=== PATIENT | male | born 1930 ===

== ENCOUNTER 2016-11-30 11:01 | Emergency (ER) | payer MEDICAID ==
[2016-11-30 11:02] VITALS: BMI 25.7
[2016-11-30] MEDS ORDERED: Sodium Chloride 0.9% 1,000 ML IV STA (11:38)
[2016-11-30] MEDS ORDERED: Iohexol 240 (50 ml) PO ONE (11:38)
--- NOTE | 2016-11-30 11:40 | ED PDOC ---
HPI: Abdomen Time Seen by Provider: 11/30/16 11:31 Chief Complaint (Nursing): Abdominal Pain History Per: Patient (Crampy lower abd pain assoc with diarrhea x 2 days. No fever or vomiting. No urinary sxs.) Onset/Duration Of Symptoms: Days (2) Current Symptoms Are (Timing): Still Present Severity: Mild Pain Scale Rating Of: 3 Location Of Pain/Discomfort: RLQ Quality Of Discomfort: Cramping Associated Symptoms: Diarrhea Exacerbating Factors: None Alleviating Factors: None Past Medical History Vital Signs: Last Vital Signs Temp 98.3 F 11/30/16 11:17 Pulse 62 11/30/16 11:17 Resp 17 11/30/16 11:17 BP 135/67 11/30/16 11:17 Pulse Ox 95 11/30/16 11:40 - Medical History PMH: Arthritis, Asthma, Benign Prostatic Hyperplasia, Depression, Diabetes, HTN , Hypercholesterolemia, Hyperlipidemia, Parkinson's Disease, Pneumonia Denies: Anemia, CHF, COPD, HIV, Hypothyroidism, Chronic Kidney Disease, Rheumatoid Arthritis - Surgical History Surgical History: Appendectomy, Cholecystectomy, Coronary Stent - Family History Family History: States: Unknown Family Hx - Home Medications Home Medications: Ambulatory Orders Medication Instructions Recorded Simvastatin 20 mg PO DAILY 10/06/15 Aspirin [Low Dose Aspirin EC] 81 mg PO DAILY 04/25/16 Famotidine [Pepcid] 20 mg PO DAILY 04/25/16 Venlafaxine HCl [Venlafaxine HCl 37.5 mg PO DAILY 04/25/16 ER] Gabapentin [Neurontin] 1 tab PO TID 08/01/16 Meloxicam [Mobic] 1 tab PO DAILY 08/01/16 Midodrine [Proamatine] 2.5 mg PO BID 08/01/16 Valsartan/Hydrochlorothiazide 1 tab PO DAILY 08/01/16 [Valsartan and Hydrochlorothiazide 12.5 mg-80 ] Albuterol 0.083% [Albuterol 3 ml IH Q4H PRN 11/30/16 Sulfate 3 Ml] Alendronate Sodium 70 mg PO QWK 11/30/16 Allopurinol [Zyloprim] 100 mg PO DAILY 11/30/16 Aspirin [Ecotrin] 81 mg PO DAILY 11/30/16 Ciprofloxacin HCl [Cipro] 500 mg PO BID #20 tab 11/30/16 Montelukast Sodium [Singulair] 10 mg PO HS 11/30/16 - Allergies Allergies/Adverse Reactions: Allergies Allergy/AdvReac Type Severity Reaction Status Date / Time No Known Allergies Allergy Verified 11/30/16 11:17 Review of Systems ROS Statement: Except As Marked, All Systems Reviewed And Found Negative Constitutional: Negative for: Fever Gastrointestinal: Positive for: Abdominal Pain, Diarrhea. Negative for: Vomiting Genitourinary Male: Negative for: Dysuria Physical Exam - Reviewed Nursing Documentation Reviewed: Yes Vital Signs Reviewed: Yes - Physical Exam Appears: Positive for: Non-toxic, No Acute Distress Head Exam: Positive for: ATRAUMATIC, NORMAL INSPECTION, NORMOCEPHALIC Skin: Positive for: Normal Color, Warm, DRY Eye Exam: Positive for: EOMI, Normal appearance, PERRL ENT: Positive for: Normal ENT Inspection Neck: Positive for: Normal, Painless ROM Cardiovascular/Chest: Positive for: Regular Rate, Rhythm Respiratory: Positive for: CNT, Normal Breath Sounds Gastrointestinal/Abdominal: Positive for: Bowel Sounds, Soft, Tenderness (RLQ) Back: Positive for: Normal Inspection Extremity: Positive for: Normal ROM Neurologic/Psych: Positive for: Alert, Oriented - Laboratory Results Result Diagrams: 11/30/16 12:25 11/30/16 12:25 - ECG O2 Sat by Pulse Oximetry: 95 Disposition - Clinical Impression Clinical Impression: UTI (lower urinary tract infection) - Patient ED Disposition Is Patient to be Admitted: No Counseled Patient/Family Regarding: Studies Performed, Diagnosis, Need For Followup, Rx Given - Disposition Referrals: [facility] [Outside] Disposition: Routine/Home Disposition Time: 16:40 Condition: FAIR Prescriptions: Ciprofloxacin HCl [Cipro] 500 mg PO BID #20 tab Instructions: Urinary Tract Infection in Men (ED) Print Language: RWANDAN
[2016-11-30] MEDS ORDERED: Iohexol 240 (50 ml) ONE (11:55)
[2016-11-30 12:33] LABS: BASO # 0.1 K/uL (0.0-0.2); BASO % 1.5 % (0.0-2.0); EOS # 0.1 K/uL (0.0-0.7); EOS % 1.9 % (0.0-4.0); LYMPH # 1.2 K/uL (1.0-4.3); LYMPH % 22.7 % (20.0-40.0); MEAN CELL VOLUME 83.5 fl (80.0-94.0); MEAN CORPUSCULAR HEMOGLOBIN 27.6 pg (27.0-31.0); MEAN CORPUSCULAR HGB CONC 33.1 g/dL (33.0-37.0); MONO # 0.6 K/uL (0.0-0.8); MONO % 10.9 % (0.0-10.0); NEUT # 3.3 K/uL (1.8-7.0); NRBC % 0.1 % (0.0-0.0); RED CELL DISTRIBUTION WIDTH 15.6 % (11.5-14.5); WHITE BLOOD COUNT 5.3 K/uL (4.8-10.8)
[2016-11-30 12:46] LABS: ALB/GLOB RATIO 1.3 (1.0-2.1); ALKALINE PHOSPHATASE 63 U/L (38-126); ALT/SGPT 32 U/L (21-72); AST/SGOT 40 U/L (17-59); BILIRUBIN,TOTAL 0.6 mg/dl (0.2-1.3); BLOOD UREA NITROGEN 22 mg/dl (9-20); CARBON DIOXIDE 26 mmol/L (22-30); CHLORIDE 107 mmol/L (98-107); GFR AFRICAN-AMERICAN > 60; GLUCOSE,RANDOM 98 mg/dL (75-110); POTASSIUM 4.2 MMOL/L (3.6-5.0); SODIUM 143 mmol/l (132-148)
[2016-11-30] MEDS ORDERED: Iohexol 300 100 ML IJ ONE (14:20)
[2016-11-30] MEDS ORDERED: Sodium Chloride 0.9% 50 ML IV ONE (14:21)
--- NOTE | 2016-11-30 16:31 | CT ---
PROCEDURE: CT Abdomen and Pelvis with contrast HISTORY: abd pain COMPARISON: 02/07/2016 TECHNIQUE: Contrast dose: 90 mL Radiation dose: Total exam DLP = 982.69 mGy-cm. This CT exam was performed using one or more of the following dose reduction techniques: Automated exposure control, adjustment of the mA and/or kV according to patient size, and/or use of iterative reconstruction technique. FINDINGS: LOWER THORAX: Patchy opacities in the lung bases likely atelectasis. Calcified granuloma in the right lung base. Mild enlargement of the heart. No significant pericardial effusion. LIVER: Unremarkable. No gross lesion or ductal dilatation. GALLBLADDER AND BILE DUCTS: Unremarkable. PANCREAS: Unremarkable. No gross lesion or ductal dilatation. SPLEEN: Unremarkable. ADRENALS: Unremarkable. No mass. KIDNEYS AND URETERS: Possible cysts in the right kidney. Again seen cortical areas of focal scarring in the right kidney. VASCULATURE: Tortuous abdominal aorta. Scattered atherosclerotic calcification involving the abdominal aorta and its main branches. BOWEL: Hiatal hernia. Collapsed stomach limiting evaluation. No bowel obstruction. Collapsed distal colon without oral contrast within it. This limits evaluation. APPENDIX: No CT evidence of acute appendicitis. PERITONEUM: No significant free fluid. No free air. LYMPH NODES: No bulky lymphadenopathy. BLADDER: Thickening of the wall of the urinary bladder which could represent underlying cystitis. REPRODUCTIVE: Unremarkable. BONES: Generalized osteopenia. OTHER FINDINGS: Fat containing umbilical hernia. IMPRESSION: No acute bowel pathology. Possible cysts in the right kidney. Other findings as above.
[2016-11-30 16:53] VITALS: BP 165/64; PULSE 51; RESP 16; TEMP 97.8; O2SAT 96
== END 2016-11-30 17:04 | disposition home or self-care (01) ==
LOC: H.ER 11:01
DX: N39.0 Urinary tract infection, site not specified (principal); E11.9 Type 2 diabetes mellitus without complications; E78.00 Pure hypercholesterolemia, unspecified; F32.9 Major depressive disorder, single episode, unspecified; G20 Parkinson's disease; I10 Essential (primary) hypertension; J45.909 Unspecified asthma, uncomplicated; N40.0 Benign prostatic hyperplasia without lower urinary tract symptoms; Z79.82 Long term (current) use of aspirin; Z95.5 Presence of coronary angioplasty implant and graft

== ENCOUNTER 2017-01-30 10:06 | Inpatient (IN) | payer MEDICAID ==
[2017-01-30 10:25] VITALS: BMI 32.9
[2017-01-30 10:54] LABS: BASO # 0.1 K/uL (0.0-0.2); BASO % 2.1 % (0.0-2.0); EOS # 0.1 K/uL (0.0-0.7); HEMOGLOBIN 12.4 g/dL (12.0-18.0); LYMPH # 1.2 K/uL (1.0-4.3); LYMPH % 30.1 % (20.0-40.0); MEAN CELL VOLUME 85.3 fl (80.0-94.0); MEAN CORPUSCULAR HEMOGLOBIN 27.9 pg (27.0-31.0); MEAN CORPUSCULAR HGB CONC 32.7 g/dL (33.0-37.0); MEAN PLATELET VOLUME 9.9 fl (7.2-11.7); MONO # 0.3 K/uL (0.0-0.8); MONO % 8.8 % (0.0-10.0); NEUT # 2.2 K/uL (1.8-7.0); NRBC % 0.1 % (0.0-0.0); RBC 4.46 Mil/uL (4.40-5.90); WHITE BLOOD COUNT 3.9 K/uL (4.8-10.8)
[2017-01-30 11:03] LABS: ALB/GLOB RATIO 1.4 (1.0-2.1); ALBUMIN 3.8 g/dL (3.5-5.0); ALT/SGPT 40 U/L (21-72); AST/SGOT 29 U/L (17-59); BLOOD UREA NITROGEN 24 mg/dl (9-20); GFR AFRICAN-AMERICAN > 60; GFR NON-AFRICAN AMERICAN > 60; LIPASE 68 U/L (23-300)
--- NOTE | 2017-01-30 11:08 | ED PDOC ---
HPI: Abdomen Time Seen by Provider: 01/30/17 10:22 Chief Complaint (Nursing): Abdominal Pain Chief Complaint (Provider): abdominal pain History Per: Patient History/Exam Limitations: no limitations Onset/Duration Of Symptoms: Days (x 1) Additional Complaint(s): Suman Keith is a 86 year old male, with a previous medical history of hypertension and diabetes, who presents to the ED with complaints of abdominal pain radiating to his chest ongoing for 1 day. He denies taking anything for pain and reports no nausea, vomiting, constipation, diarrhea, fever, chills or urinary symptoms. PMD: none provided Past Medical History Vital Signs: Last Vital Signs Temp 97.7 F 01/31/17 12:00 Pulse 51 L 01/31/17 12:00 Resp 18 01/31/17 12:00 BP 143/57 L 01/31/17 12:00 Pulse Ox 95 01/31/17 12:00 - Medical History PMH: Arthritis, Asthma, Benign Prostatic Hyperplasia, Depression, Diabetes, HTN , Hypercholesterolemia, Hyperlipidemia, Parkinson's Disease, Pneumonia Denies: Anemia, CHF, COPD, HIV, Hypothyroidism, Chronic Kidney Disease, Rheumatoid Arthritis - Surgical History Surgical History: Appendectomy, Cholecystectomy, Coronary Stent - Family History Family History: States: Unknown Family Hx - Home Medications Home Medications: Ambulatory Orders Medication Instructions Recorded Simvastatin 20 mg PO DAILY 10/06/15 Aspirin [Low Dose Aspirin EC] 81 mg PO DAILY 04/25/16 Famotidine [Pepcid] 20 mg PO DAILY 04/25/16 Valsartan/Hydrochlorothiazide 1 tab PO DAILY 08/01/16 [Valsartan and Hydrochlorothiazide 12.5 mg-80 ] Allopurinol [Zyloprim] 100 mg PO DAILY 11/30/16 Montelukast Sodium [Singulair] 10 mg PO HS 11/30/16 - Allergies Allergies/Adverse Reactions: Allergies Allergy/AdvReac Type Severity Reaction Status Date / Time No Known Allergies Allergy Verified 01/30/17 10:28 Review of Systems ROS Statement: Except As Marked, All Systems Reviewed And Found Negative Constitutional: Negative for: Fever, Chills Gastrointestinal: Positive for: Abdominal Pain. Negative for: Nausea, Vomiting , Diarrhea, Constipation Genitourinary Male: Negative for: Dysuria, Frequency, Incontinence, Hematuria Physical Exam - Reviewed Nursing Documentation Reviewed: Yes Vital Signs Reviewed: Yes - Physical Exam Appears: Positive for: Well, Non-toxic, In Acute Distress (painful) Head Exam: Positive for: ATRAUMATIC, NORMAL INSPECTION, NORMOCEPHALIC Skin: Positive for: Normal Color, Warm, DRY Eye Exam: Positive for: EOMI, Normal appearance, PERRL ENT: Positive for: Normal ENT Inspection Neck: Positive for: Normal, Painless ROM Cardiovascular/Chest: Positive for: Regular Rate, Rhythm Respiratory: Positive for: Crackles (left base ) Gastrointestinal/Abdominal: Positive for: Bowel Sounds, Soft, Tenderness (LUQ) Back: Positive for: Normal Inspection Extremity: Positive for: Normal ROM Neurologic/Psych: Positive for: Alert, Oriented - Laboratory Results Result Diagrams: 01/30/17 10:45 01/30/17 10:45 - ECG O2 Sat by Pulse Oximetry: 95 (RA) Pulse Ox Interpretation: Normal - Radiology X-Ray: Read By Radiologist X-Ray Interpretation: No Acute Disease - CT Scan/US CT head Other Rad Studies (CT/US): Radiology Report Reviewed (Normal CT of the head.) CT abd/pelvis Other Rad Studies (CT/US): Radiology Report Reviewed (No acute pathology.) Medical Decision Making Medical Decision Making: Initial Impression: abdominal pain with differentials including cholecystitis and diverticulitis Initial Plan: * labs * PROBNP * CT head w/o contrast * CT abd & pelvis w/ contrast * lipase * urine dipstick * urinalysis * PTT * PT * CXR * morphine 2 mg IV * EKG Scribe Attestation: Documented by Kalie Melgoza, acting as a scribe for Kalie Rose MD. Provider Scribe Attestation: All medical record entries made by the Scribe were at my direction and personally dictated by me. I have reviewed the chart and agree that the record accurately reflects my personal performance of the history, physical exam, medical decision making, and the department course for this patient. I have also personally directed, reviewed, and agree with the discharge instructions and disposition. Disposition - Clinical Impression Clinical Impression: Chest pain, Abdominal pain - Patient ED Disposition Is Patient to be Admitted: Yes - Disposition Disposition Time: 15:55 Condition: STABLE - Pt Status Changed To: Hospital Disposition Of: Observation - POA Present On Arrival: None
[2017-01-30 11:12] LABS: PARTIAL THROMBOPLASTIN TIME 31.7 Seconds (25.6-37.1); PROTHROMBIN TIME 11.2 Seconds (9.8-13.1)
[2017-01-30 11:14] LABS: B-TYPE NATRIURETIC PEPTIDE 265 pg/ml (0-900)
[2017-01-30] MEDS ORDERED: Iohexol 300 100 ML IJ ONE (11:22)
[2017-01-30] MEDS ORDERED: Sodium Chloride 0.9% 50 ML IV ONE (11:22)
--- NOTE | 2017-01-30 11:33 | CT ---
PROCEDURE: CT HEAD WITHOUT CONTRAST. HISTORY: VEGA COMPARISON: None available. TECHNIQUE: Axial computed tomography images were obtained through the head/brain without intravenous contrast. Radiation dose: Total exam DLP = 873 mGy-cm. This CT exam was performed using one or more of the following dose reduction techniques: Automated exposure control, adjustment of the mA and/or kV according to patient size, and/or use of iterative reconstruction technique. FINDINGS: HEMORRHAGE: No intracranial hemorrhage. BRAIN: No mass effect or edema. No atrophy or chronic microvascular ischemic changes. VENTRICLES: Unremarkable. No hydrocephalus. CALVARIUM: Unremarkable. PARANASAL SINUSES: Unremarkable as visualized. No significant inflammatory changes. MASTOID AIR CELLS: Unremarkable as visualized. No inflammatory changes. OTHER FINDINGS: None. IMPRESSION: Normal CT of the Head.
--- NOTE | 2017-01-30 14:34 | CT ---
PROCEDURE: CT Abdomen and Pelvis with contrast HISTORY: L sided abd pain COMPARISON: None. TECHNIQUE: Contrast dose: 100 cc of Omnipaque 300 Radiation dose: Total exam DLP = 1038 mGy-cm. This CT exam was performed using one or more of the following dose reduction techniques: Automated exposure control, adjustment of the mA and/or kV according to patient size, and/or use of iterative reconstruction technique. FINDINGS: LOWER THORAX: Unremarkable. LIVER: Unremarkable. No gross lesion or ductal dilatation. GALLBLADDER AND BILE DUCTS: Unremarkable. PANCREAS: Unremarkable. No gross lesion or ductal dilatation. SPLEEN: Unremarkable. ADRENALS: Unremarkable. No mass. KIDNEYS AND URETERS: Right lateral cortical defect. No hydronephrosis. No solid mass. VASCULATURE: Unremarkable. No aortic aneurysm. BOWEL: Unremarkable. No obstruction. No gross mural thickening. APPENDIX: Normal appendix. PERITONEUM: Unremarkable. No free fluid. No free air. LYMPH NODES: Unremarkable. No enlarged lymph nodes. BLADDER: Unremarkable. REPRODUCTIVE: Unremarkable. BONES: No acute fracture. OTHER FINDINGS: None. IMPRESSION: No acute pathology.
--- NOTE | 2017-01-30 15:05 | RAD ---
HISTORY: Chest pain COMPARISON: No prior. TECHNIQUE: Chest PA and lateral FINDINGS: LUNGS: No active pulmonary disease. PLEURA: No significant pleural effusion identified. No pneumothorax apparent. CARDIOVASCULAR: Normal. Atherosclerotic aorta OSSEOUS STRUCTURES: No significant abnormalities. VISUALIZED UPPER ABDOMEN: Normal. OTHER FINDINGS: None. IMPRESSION: No active disease.
[2017-01-30 16:32] LABS: SQUAMOUS EPITHIAL < 1 /hpf (0-5); URINE BILIRUBIN NEGATIVE (NEGATIVE); URINE BLOOD NEGATIVE (NEGATIVE); URINE CLARITY CLEAR (Clear); URINE COLOR YELLOW (YELLOW); URINE GLUCOSE (UA) NEG (Normal); URINE LEUKOCYTE ESTERASE NEG Leu/uL (Negative); URINE NITRATE NEGATIVE (NEGATIVE); URINE PROTEIN NEGATIVE (NEGATIVE); URINE UROBILINOGEN 0.2-1.0 mg/dL (0.2-1.0)
--- NOTE | 2017-01-30 23:42 | CP.PCM.HP ---
Past Patient History - Infectious Disease Hx of Infectious Diseases: None - Tetanus Immunizations Tetanus Immunization: Unknown - Past Medical History & Family History Past Medical History?: Yes - Past Social History Smoking Status: Former Smoker - CARDIAC Hx Cardiac Disorders: Yes - PULMONARY Hx Respiratory Disorders: Yes - NEUROLOGICAL Hx Neurological Disorder: Yes - HEENT Hx HEENT Problems: No - RENAL Hx Chronic Kidney Disease: No - ENDOCRINE/METABOLIC Hx Endocrine Disorders: Yes - HEMATOLOGICAL/ONCOLOGICAL Hx Blood Disorders: No - INTEGUMENTARY Hx Dermatological Problems: No - MUSCULOSKELETAL/RHEUMATOLOGICAL Hx Musculoskeletal Disorders: Yes - GASTROINTESTINAL Hx Gastrointestinal Disorders: No - GENITOURINARY/GYNECOLOGICAL Hx Genitourinary Disorders: Yes - PSYCHIATRIC Hx Psychophysiologic Disorder: Yes - SURGICAL HISTORY Hx Appendectomy: Yes Hx Cholecystectomy: Yes Hx Coronary Stent: Yes - ANESTHESIA Hx Anesthesia: Yes Hx Anesthesia Reactions: No Hx Malignant Hyperthermia: No Meds Allergies/Adverse Reactions: Allergies Allergy/AdvReac Type Severity Reaction Status Date / Time No Known Allergies Allergy Verified 01/30/17 10:28 Results - Vital Signs Recent Vital Signs: Last Vital Signs Temp 98 F 01/30/17 10:24 Pulse 56 L 01/30/17 19:27 Resp 20 01/30/17 19:27 BP 154/71 H 01/30/17 19:27 Pulse Ox 98 01/30/17 19:27 - Labs Result Diagrams: 01/30/17 10:45 01/30/17 10:45 Labs: Laboratory Results - last 24 hr 01/30/17 01/30/17 01/30/17 16:25 19:35 20:44 Troponin I 0.0160 TSH 3rd Generation 2.46 Urine Color Yellow Urine Clarity Clear Urine pH 7.0 Ur Specific [place] 1.050 H Urine Protein Negative Urine Glucose (UA) Neg Urine Ketones Negative Urine Blood Negative Urine Nitrate Negative Urine Bilirubin Negative Urine Urobilinogen 0.2-1.0 Ur Leukocyte Esterase Neg Urine RBC (Auto) 3 Urine Microscopic WBC 1 Ur Squamous Epith Cells < 1
[2017-01-31] MEDS: Insulin Lispro (humaLOG) 100 Units/ml Inj SC SCH ×4 (06:34→21:43)
[2017-01-31] MEDS: Enoxaparin 40 mg Syringe SC SCH (08:55)
[2017-01-31] MEDS: Pantoprazole 40 mg EC Tab PO SCH (08:57)
[2017-01-31] MEDS ORDERED: Patient's Own Med (Valsartan/Hydrochlorothiazide [Valsartan-Hctz 80-12.5 Mg Tab] 1 TAB) PO SCH (09:00)
[2017-01-31] MEDS: Sucralfate 1 gm/10 ml Oral Susp UD PO SCH ×5 (09:04→21:43)
--- NOTE | 2017-01-31 13:23 | CARD ---
APPROVED REPORT EKG Measurement Heart [id number] <Conclusion> Sinus bradycardia Left axis deviation Nonspecific ST and T wave abnormality Prolonged QT Abnormal ECG
--- NOTE | 2017-01-31 13:42 | CP.PCM.CON ---
History of Present Illness - History of Present Illness History of Present Illness: 86 Y/O MALE ADMITTED WITH ABD PAIN RADIATING TO CHEST. NO N/V/D/C. NO F/C. DENIES PALP LH DIZZINESS. MILD DYSPNEA, NO ORTHOPNEA. EKG REVEALS SINUS DERIC WITH LAD, NONSPEC ST T FLAT. TELE REVEALS SB AT 50-55. HE IS ALSO CO RIGHT INNER THIGH PAIN AND BACK PAIN. PT IS LAYING FLAT AND COMPLETING SENTENCES. HE DOES HAVE MULTIPLE MURMURS, MILD LE EDEMA AND IS A POOR HISTORIAN. PT DOES HAVE MULTIPLE RISK FACTORS FOR CAD. Review of Systems - Constitutional Constitutional: absent: As Per HPI, Anorexia, Chills, Daytime Sleepiness, Excessive Sweating, Fatigue, Fever, Frequent Falls, Headache, Increased Appetite , Lethargy, Malaise, Night Sweats, Snoring, Sleep Apnea, Weight Gain, Weight Loss, Weakness, Other - EENT Eyes: absent: As Per HPI, Blind Spots, Blurred Vision, Change in Vision, Decreased Night Vision, Diplopia, Discharge, Dry Eye, Exophthalmos, Floaters, Irritation, Itchy Eyes, Loss of Peripheral Vision, Pain, Photophobia, Requires Corrective Lenses, Sees Flashes, Spots in Vision, Tunnel Vision, Other Visual Disturbances, Loss of Vision, Other Ears: absent: As Per HPI, Decreased Hearing, Ear Discharge, Ear Pain, Tinnitus, Abnormal Hearing, Disequilibrium, Dizziness, Other Nose/Mouth/Throat: absent: As Per HPI, Epistaxis, Nasal Congestion, Nasal Discharge, Nasal Obstruction, Nasal Trauma, Nose Pain, Post Nasal Drip, Sinus Pain, Sinus Pressure, Bleeding Gums, Change in Voice, Dental Pain, Dry Mouth, Dysphagia, Halitosis, Hoarsness, Lip Swelling, Mouth Lesions, Mouth Pain, Odynophagia, Sore Throat, Throat Swelling, Tongue Swelling, Facial Pain, Neck Pain, Neck Mass, Other - Cardiovascular Cardiovascular: As Per HPI, Dyspnea. absent: Acrocyanosis, Chest Pain, Chest Pain at Rest, Chest Pain with Activity, Claudication, Diaphoresis, Dyspnea on Exertion, Edema, Irregular Heart Rhythm, Pain Radiating to Arm/Neck/Jaw, Leg Edema, Leg Ulcers, Lightheadedness, Orthopnea, Palpitations, Paroxysmal Nocturnal Dyspnea, Pedal Edema, Radiating Pain, Rapid Heart Rate, Slow Heart Rate, Syncope, Other - Respiratory Respiratory: Dyspnea. absent: As Per HPI, Cough, Hemoptysis, Dyspnea on Exertion, Wheezing, Snoring, Stridor, Pain on Inspiration, Chest Congestion, Excessive Mucous Production, Change in Mucous Color, Pain with Coughing, Other - Gastrointestinal Gastrointestinal: As Per HPI, Abdominal Pain. absent: Belching, Bloating, Change in Bowel Habits, Change in Stool Character, Coffee Ground Emesis, Constipation, Cramping, Diarrhea, Dyspepsia, Dysphagia, Early Satiety, Excessive Flatus, Fecal Incontinence, Heartburn, Hematemesis, Hematochezia, Loose Stools, Melena, Nausea, Odynophagia, Temesmus, Vomiting, Other - Genitourinary Genitourinary: absent: As Per HPI, Change in Urinary Stream, Difficulty Urinating, Dysuria, Flank Pain, Hematuria, Pyuria, Nocturia, Urinary Incontinence, Urinary Frequency, Urinary Hesitance, Urinary Urgency, Voiding Freq/Small Amts, Freq UTI, Hx Renal/Bladder Calculi, Hx /Renal Surgery, Bladder Distension, Other - Reproductive: Male Reproductive:Male: As Per HPI, Prepubesant, Dyspareunia, Genital Lesions, Genital Pruritis, Pelvic Pain, Sexual Dysfunction, Penile Discharge, Genital Odor, Impotence, On ED Medications, Penile Implant, Other - Musculoskeletal Musculoskeletal: As Per HPI, Back Pain. absent: Abnormal Gait, Arthralgias, Atrophy, Deformity, Joint Swelling, Limited Range of Motion, Loss of Height, Muscle Cramps, Muscle Weakness, Myalgias, Neck Pain, Numbness, Radiating Pain into Limb, Stiffness, Tingling, Other - Integumentary Integumentary: absent: As Per HPI, Acne, Alopecia, Bleeding Lesions, Change in Hair, Change in Nails, Change in Pigmentation, Changing Lesions, Dry Skin, Erythema, Furuncle, Hirsutism, Lesions, New Lesions, Non-Healing Lesions, Photosensitivity, Pruritus, Rash, Skin Pain, Skin Ulcer, Sores, Striae, Swelling , Unusual Bruising, Wounds, Jaundice, Other - Neurological Neurological: absent: As Per HPI, Abnormal Gait, Abnormal Hearing, Abnormal Movements, Abnormal Speech, Behavioral Changes, Burning Sensations, Confusion, Convulsions, Disequilibrium, Dizziness, Numbness, Focal Weakness, Frequent Falls , Headaches, Lack of Coordination, Loss of Vision, Memory Loss, Paresthesias, Radicular Pain, Restless Legs, Sensory Deficit, Syncope, Tingling, Tremor, Vertigo, Weakness, Other Visual Disturbances, Other - Psychiatric Psychiatric: absent: As Per HPI, Abnormal Sleep Pattern, Anhedonia, Anxiety, Auditory Hallucinations, Behavioral Changes, Change in Appetite, Change in Libido, Confusion, Depression, Difficulty Concentrating, Hallucinations, Homicidal Ideation, Hopelessness, Irritability, Memory Loss, Mood Swings, Panic Attacks, Paranoia, Suicidal Ideation, Visual Hallucinations, Tactile Hallucinations, Other - Endocrine Endocrine: absent: As Per HPI, Change in Body Appearance, Change in Libido, Cold Intolorance, Deepening of Voice, Excessive Sweating, Fatigue, Flushing, Heat Intolorance, Increase in Ring/Shoe/Hat Size, Palpitations, Polydipsia, Polyphagia, Polyuria, Other - Hematologic/Lymphatic Hematologic: absent: As Per HPI, Easy Bleeding, Easy Bruising, Lymphadenopathy, Other Past Patient History - Infectious Disease Hx of Infectious Diseases: None - Tetanus Immunizations Tetanus Immunization: Unknown - Past Medical History & Family History Past Medical History?: Yes - Past Social History Smoking Status: Former Smoker Chewing Tobacco Use: No Cigar Use: No Alcohol: None Drugs: Denies - CARDIAC Hx Cardiac Disorders: Yes Other/Comment: BRADYCARDIA - PULMONARY Hx Respiratory Disorders: Yes - NEUROLOGICAL Hx Neurological Disorder: Yes - HEENT Hx HEENT Problems: No - RENAL Hx Chronic Kidney Disease: No - ENDOCRINE/METABOLIC Hx Endocrine Disorders: Yes - HEMATOLOGICAL/ONCOLOGICAL Hx Blood Disorders: No - INTEGUMENTARY Hx Dermatological Problems: No - MUSCULOSKELETAL/RHEUMATOLOGICAL Hx Musculoskeletal Disorders: Yes Hx Back Pain: Yes - GASTROINTESTINAL Hx Gastrointestinal Disorders: No - GENITOURINARY/GYNECOLOGICAL Hx Genitourinary Disorders: Yes - PSYCHIATRIC Hx Psychophysiologic Disorder: No - SURGICAL HISTORY Hx Surgeries: Yes Hx Appendectomy: Yes Hx Cholecystectomy: Yes Hx Coronary Stent: Yes - ANESTHESIA Hx Anesthesia: Yes Hx Anesthesia Reactions: No Hx Malignant Hyperthermia: No Meds Home Medications: Home Medication List Medication Instructions Recorded Confirmed Type Pantoprazole [Protonix EC Tab] 40 mg PO DAILY #30 ect 02/01/17 Rx Sucralfate [Carafate Oral Susp] 1 gm PO ACHS #30 02/01/17 Rx Allergies/Adverse Reactions: Allergies Allergy/AdvReac Type Severity Reaction Status Date / Time No Known Allergies Allergy Verified 01/30/17 10:28 - Medications Medications: Current Medications Acetaminophen (Tylenol 325mg Tab) 650 mg PO Q6 PRN PRN Reason: Pain, Mild (1-3) Last Admin: 01/31/17 12:14 Dose: 650 mg Allopurinol (Zyloprim) 100 mg PO DAILY [facility] Last Admin: 01/31/17 08:57 Dose: 100 mg Aspirin (Ecotrin) 81 mg PO DAILY [facility] Last Admin: 01/31/17 08:54 Dose: 81 mg Atorvastatin Calcium (Lipitor) 10 mg PO DAILY [facility] Last Admin: 01/31/17 08:55 Dose: 10 mg Enoxaparin Sodium (Lovenox) 40 mg SC DAILY [facility] PRN Reason: Protocol Last Admin: 01/31/17 08:55 Dose: 40 mg Famotidine (Pepcid) 20 mg PO DAILY [facility] Last Admin: 01/31/17 08:56 Dose: 20 mg Hydrochlorothiazide (Microzide) 12.5 mg PO DAILY [facility] Last Admin: 01/31/17 08:56 Dose: 12.5 mg Insulin Human Lispro (Humalog) 0 units SC ACHS [facility] PRN Reason: Protocol Last Admin: 01/31/17 13:36 Dose: Not Given Montelukast Sodium (Singulair) 10 mg PO HS [facility] Last Admin: 01/31/17 03:02 Dose: 10 mg Morphine Sulfate (Morphine) 1 mg IVP Q4 PRN PRN Reason: Pain, moderate (4-7) Pantoprazole Sodium (Protonix Ec Tab) 40 mg PO DAILY [facility] Last Admin: 01/31/17 08:57 Dose: 40 mg Sucralfate (Carafate Oral Susp) 1 gm PO QID [facility] Last Admin: 01/31/17 13:35 Dose: 1 gm Valsartan (Diovan) 80 mg PO DAILY [facility] Last Admin: 01/31/17 13:35 Dose: 80 mg Physical Exam - Constitutional Appears: Non-toxic - Head Exam Head Exam: ATRAUMATIC, NORMAL INSPECTION, NORMOCEPHALIC - Eye Exam Eye Exam: EOMI, Normal appearance, PERRL. absent: Conjunctival injection, Nystagmus, Periorbital swelling, Periorbital tenderness, Scleral icterus Pupil Exam: NORMAL ACCOMODATION, PERRL. absent: Fixed, Irregular, Miosis, Mydriatic, Unequal - ENT Exam ENT Exam: Mucous Membranes Moist, Normal Exam. absent: Mucous Membranes Dry, Normal External Ear Exam, Normal Oropharynx, TM's Normal Bilaterally - Neck Exam Neck exam: Positive for: Normal Inspection. Negative for: Full Rom, Lymphadenopathy, Meningismus, Tenderness, Thyromegaly - Respiratory Exam Respiratory Exam: Clear to Auscultation Bilateral, NORMAL BREATHING PATTERN. absent: Accessory Muscle Use, Chest Wall Tenderness, Decreased Breath Sounds, Prolonged Expiratory Phase, Rales, Rhonchi, Wheezes, Respiratory Distress, Stridor - Cardiovascular Exam Cardiovascular Exam: Bradycardia, Diastolic murmur, REGULAR RHYTHM, +S1, +S2, Systolic Murmur. absent: Tachycardia, Clicks, Gallop, Irregular Rhythm, JVD, RRR, Rubs, +S4 Additional comments: 3/6 HOLOSYSTOLIC MURMUR LOUDEST AT BASE AND RADIATING TO APEX. 2/6 EARLY SYSTOLIC MURMUR HEARD AT APEX AND [facility]. NO RUBS OR GALLOPS. NO THRILLS OR HEAVES. - GI/Abdominal Exam GI & Abdominal Exam: Normal Bowel Sounds, Soft - Rectal Exam Rectal Exam: Deferred - Extremities Exam Extremities exam: Positive for: normal inspection. Negative for: calf tenderness, full ROM, joint swelling, normal capillary refill, pedal edema, tenderness, pedal pulses present - Back Exam Back exam: tenderness. absent: CVA tenderness (L), CVA tenderness (R), FULL ROM , muscle spasm, NORMAL INSPECTION, paraspinal tenderness, rash noted, vertebral tenderness - Neurological Exam Neurological exam: Alert, Oriented x3 - Psychiatric Exam Psychiatric exam: Normal Affect, Normal Mood - Skin Skin Exam: Dry, Intact, Normal Color, Warm Results - Vital Signs Recent Vital Signs: Last Vital Signs Temp 97.7 F 01/31/17 12:00 Pulse 51 L 01/31/17 12:00 Resp 18 01/31/17 12:00 BP 143/57 L 01/31/17 12:00 Pulse Ox 95 01/31/17 12:00 - Labs Result Diagrams: 02/01/17 05:40 02/01/17 05:40 Labs: Laboratory Results - last 24 hr 01/30/17 01/30/17 01/30/17 16:25 19:35 20:44 POC Glucose (mg/dL) Troponin I 0.0160 TSH 3rd Generation 2.46 Urine Color Yellow Urine Clarity Clear Urine pH 7.0 Ur Specific [place] 1.050 H Urine Protein Negative Urine Glucose (UA) Neg Urine Ketones Negative Urine Blood Negative Urine Nitrate Negative Urine Bilirubin Negative Urine Urobilinogen 0.2-1.0 Ur Leukocyte Esterase Neg Urine RBC (Auto) 3 Urine Microscopic WBC 1 Ur Squamous Epith Cells < 1 01/31/17 01/31/17 01/31/17 05:36 07:00 11:56 POC Glucose (mg/dL) 96 109 Troponin I < 0.0120 TSH 3rd Generation Urine Color Urine Clarity Urine pH Ur Specific [place] Urine Protein Urine Glucose (UA) Urine Ketones Urine Blood Urine Nitrate Urine Bilirubin Urine Urobilinogen Ur Leukocyte Esterase Urine RBC (Auto) Urine Microscopic WBC Ur Squamous Epith Cells - EKG Data EKG Interpreted by: Myself EKG shows normal: Sinus rhythm Rate: Bradycardia Assessment & Plan (1) Bradycardia Status: Acute (2) Murmur, diastolic Status: Acute (3) Heart murmur, systolic Status: Acute (4) Left axis deviation Status: Acute (5) Hx of coronary artery disease Status: Acute (6) Abdominal pain Status: Chronic Priority: Low (7) HTN (hypertension) Status: Chronic Priority: Medium (8) Back pain Status: Acute (9) Chest pain Status: Acute - Assessment and Plan (Free Text) Plan: PT NEEDS ECHO TO EVAL EF AND MURMURS TROP NEGATIVE CONT ASA MONITOR LYTES LE DUPLEX TO RO DVT LEXISCAN ST TO EVAL FOR ISCHEMIA GIVEN CP AND HX OF CAD CONT ARB TREATMENT WILL FOLLOW. 90 MIN TOTAL CARE TIME.
--- NOTE | 2017-01-31 23:41 | CP.PCM.PN ---
Subjective - Date & Time of Evaluation Date of Evaluation: 01/31/17 Time of Evaluation: 23:20 Objective - Vital Signs/Intake and Output Vital Signs (last 24 hours): Temp Pulse Resp BP Pulse Ox 97.8 F 56 L 18 126/56 L 95 01/31/17 20:05 01/31/17 20:05 01/31/17 20:05 01/31/17 20:05 01/31/17 20:05 Intake and Output: 01/31/17 02/01/17 18:59 06:59 Intake Total 1200 Output Total 1000 Balance 200 - Medications Medications: Current Medications Acetaminophen (Tylenol 325mg Tab) 650 mg PO Q6 PRN PRN Reason: Pain, Mild (1-3) Last Admin: 01/31/17 21:53 Dose: 650 mg Allopurinol (Zyloprim) 100 mg PO DAILY [facility] Last Admin: 01/31/17 08:57 Dose: 100 mg Aspirin (Ecotrin) 81 mg PO DAILY [facility] Last Admin: 01/31/17 08:54 Dose: 81 mg Atorvastatin Calcium (Lipitor) 10 mg PO DAILY [facility] Last Admin: 01/31/17 08:55 Dose: 10 mg Enoxaparin Sodium (Lovenox) 40 mg SC DAILY [facility] PRN Reason: Protocol Last Admin: 01/31/17 08:55 Dose: 40 mg Famotidine (Pepcid) 20 mg PO DAILY [facility] Last Admin: 01/31/17 08:56 Dose: 20 mg Insulin Human Lispro (Humalog) 0 units SC [facility] PRN Reason: Protocol Last Admin: 01/31/17 21:43 Dose: Not Given Montelukast Sodium (Singulair) 10 mg PO HS [facility] Last Admin: 01/31/17 21:43 Dose: 10 mg Morphine Sulfate (Morphine) 1 mg IVP Q4 PRN PRN Reason: Pain, moderate (4-7) Pantoprazole Sodium (Protonix Ec Tab) 40 mg PO DAILY [facility] Last Admin: 01/31/17 08:57 Dose: 40 mg Sucralfate (Carafate Oral Susp) 1 gm PO ACHS [facility] Last Admin: 01/31/17 21:43 Dose: 1 gm Valsartan (Diovan) 80 mg PO DAILY [facility] Last Admin: 01/31/17 13:35 Dose: 80 mg - Labs Labs: PT 11.2 Seconds (9.8-13.1) 01/30/17 10:45 INR 1.0 (0.9-1.2) 01/30/17 10:45 APTT 31.7 Seconds (25.6-37.1) 01/30/17 10:45
[2017-02-01 06:13] LABS: BASO # 0.1 K/uL (0.0-0.2); BASO % 1.1 % (0.0-2.0); EOS # 0.2 K/uL (0.0-0.7); EOS % 3.2 % (0.0-4.0); HEMOGLOBIN 12.7 g/dL (12.0-18.0); LYMPH # 1.6 K/uL (1.0-4.3); MEAN CELL VOLUME 84.8 fl (80.0-94.0); MEAN CORPUSCULAR HEMOGLOBIN 28.1 pg (27.0-31.0); MEAN CORPUSCULAR HGB CONC 33.1 g/dL (33.0-37.0); MEAN PLATELET VOLUME 10.1 fl (7.2-11.7); MONO # 0.4 K/uL (0.0-0.8); MONO % 8.4 % (0.0-10.0); NEUT # 2.8 K/uL (1.8-7.0); NEUT % 55.3 % (50.0-75.0); NRBC % 0.2 % (0.0-0.0); RBC 4.53 Mil/uL (4.40-5.90); RED CELL DISTRIBUTION WIDTH 15.5 % (11.5-14.5); WHITE BLOOD COUNT 5.1 K/uL (4.8-10.8)
[2017-02-01 06:27] LABS: ALB/GLOB RATIO 1.4 (1.0-2.1); ALBUMIN 3.8 g/dL (3.5-5.0); ALT/SGPT 26 U/L (21-72); AST/SGOT 30 U/L (17-59); BLOOD UREA NITROGEN 21 mg/dl (9-20); GFR AFRICAN-AMERICAN > 60; GFR NON-AFRICAN AMERICAN > 60; MAGNESIUM 2.1 MG/DL (1.6-2.3)
[2017-02-01] MEDS: Insulin Lispro (humaLOG) 100 Units/ml Inj SC SCH ×4 (06:58→21:25)
[2017-02-01] MEDS: Sucralfate 1 gm/10 ml Oral Susp UD PO SCH ×4 (10:00→21:06)
[2017-02-01] MEDS: Pantoprazole 40 mg EC Tab PO SCH ×2 (10:02→15:04)
--- NOTE | 2017-02-01 11:23 | US ---
PROCEDURE: Bilateral lower extremity venous duplex Doppler. HISTORY: Chest pain, abdominal pain, leg pain. No antecedent history of trauma. COMPARISON: None available. TECHNIQUE: Bilateral common femoral, superficial femoral, popliteal and posterior tibial veins were evaluated. Flow was assessed with color Doppler, compressibility, assessment of phasic flow and augmentation response. FINDINGS: COMMON FEMORAL VEIN: Right CFV: Unremarkable. Left CFV: Unremarkable. SUPERFICIAL FEMORAL VEIN: Right SFV: Unremarkable. Left SFV: Unremarkable. POPLITEAL VEIN: Right Popliteal: Unremarkable. Left Popliteal: Unremarkable. POSTERIOR TIBIAL VEIN: Right PTV: Unremarkable. Left PTV: Unremarkable. OTHER FINDINGS: None. IMPRESSION: No evidence of deep venous thrombosis.
[2017-02-01] MEDS: Enoxaparin 40 mg Syringe SC SCH (15:05)
--- NOTE | 2017-02-01 16:37 | CP.PCM.PN ---
Subjective - Date & Time of Evaluation Date of Evaluation: 02/01/17 Time of Evaluation: 16:35 Objective - Vital Signs/Intake and Output Vital Signs (last 24 hours): Temp Pulse Resp BP Pulse Ox 97.6 F 59 L 20 141/68 93 L 02/01/17 15:40 02/01/17 15:40 02/01/17 15:40 02/01/17 15:40 02/01/17 15:40 Intake and Output: 02/01/17 02/01/17 06:59 18:59 Intake Total 1520 Output Total 1700 Balance -180 - Medications Medications: Current Medications Acetaminophen (Tylenol 325mg Tab) 650 mg PO Q6 PRN PRN Reason: Pain, Mild (1-3) Last Admin: 01/31/17 21:53 Dose: 650 mg Allopurinol (Zyloprim) 100 mg PO DAILY [facility] Last Admin: 02/01/17 15:03 Dose: 100 mg Aspirin (Ecotrin) 81 mg PO DAILY [facility] Last Admin: 02/01/17 15:04 Dose: 81 mg Atorvastatin Calcium (Lipitor) 10 mg PO DAILY [facility] Last Admin: 02/01/17 15:04 Dose: 10 mg Enoxaparin Sodium (Lovenox) 40 mg SC DAILY [facility] PRN Reason: Protocol Last Admin: 02/01/17 15:05 Dose: 40 mg Famotidine (Pepcid) 20 mg PO DAILY [facility] Last Admin: 02/01/17 15:05 Dose: 20 mg Insulin Human Lispro (Humalog) 0 units SC [facility] PRN Reason: Protocol Last Admin: 02/01/17 11:30 Dose: Not Given Montelukast Sodium (Singulair) 10 mg PO [facility] Last Admin: 01/31/17 21:43 Dose: 10 mg Morphine Sulfate (Morphine) 1 mg IVP Q4 PRN PRN Reason: Pain, moderate (4-7) Last Admin: 02/01/17 12:50 Dose: 1 mg Pantoprazole Sodium (Protonix Ec Tab) 40 mg PO DAILY [facility] Last Admin: 02/01/17 15:04 Dose: 40 mg Sucralfate (Carafate Oral Susp) 1 gm PO [facility] Last Admin: 02/01/17 11:30 Dose: Not Given Valsartan (Diovan) 80 mg PO DAILY [facility] Last Admin: 02/01/17 15:04 Dose: 80 mg - Labs Labs: 02/01/17 05:40 02/01/17 05:40 PT 11.2 Seconds (9.8-13.1) 01/30/17 10:45 INR 1.0 (0.9-1.2) 01/30/17 10:45 APTT 31.7 Seconds (25.6-37.1) 01/30/17 10:45
--- NOTE | 2017-02-01 19:44 | CARD ---
APPROVED REPORT EXAM: Two-dimensional and M-mode echocardiogram with Doppler and color Doppler. Other Information Quality : AverageRhythm : NSR Technically limited study due to Limited Parasternal window INDICATION Chest Pain 2D DIMENSIONS IVSd1.49 (0.7-1.1cm)LVDd4.11 (3.9-5.9cm) LVOT Diameter2.45 (1.8-2.4cm)PWd1.32 (0.7-1.1cm) IVSs1.05 (0.8-1.2cm)LVDs3.00 (2.5-4.0cm) FS (%) 26.9 %PWs1.08 (0.8-1.2cm) Mitral Valve MV E Bugzpxju77.0cm/sMV DECEL [id number] A Vejhlede71.1cm/s MV [id number]/A ratio0.7MVA (PHT)2.15cm2 TDI E/Lateral E'0.0E/Medial E'0.0 LEFT VENTRICLE The left ventricle is normal size. There is normal left ventricular wall thickness. The left ventricular function is normal. The left ventricular ejection fraction is 60-65% There is normal LV segmental wall motion. Transmitral Doppler flow pattern is Grade I-abnormal relaxation pattern. No left ventricle thrombus noted on this study. There is no ventricular septal defect visualized. There is no left ventricular aneurysm. There is no mass noted in the left ventricle. RIGHT VENTRICLE The right ventricle is normal size. There is normal right ventricular wall thickness. The right ventricular systolic function is normal. ATRIA The left atrium size is normal. The right atrium size is normal. The interatrial septum is intact with no evidence for an atrial septal defect. AORTIC VALVE The aortic valve is normal in structure and function. There is moderate to severemoderate to severe aortic regurgitation. There is no aortic valvular stenosis. There is no aortic valvular vegetation. MITRAL VALVE The mitral valve is normal in structure and function. There is no evidence of mitral valve prolapse. There is no mitral valve stenosis. Mitral regurgitation is moderate. TRICUSPID VALVE The tricuspid valve is normal in structure and function. There is no tricuspid valve regurgitation noted. There is no tricuspid valve prolapse or vegetation. There is no tricuspid valve stenosis. PULMONIC VALVE The pulmonary valve is normal in structure and function. There is no pulmonic valvular regurgitation. There is no pulmonic valvular stenosis. GREAT VESSELS The aortic root is normal in size. The ascending aorta is normal in size. The IVC is normal in size and collapses >50% with inspiration. PERICARDIAL EFFUSION The pericardium appears normal. There is no pleural effusion. <Conclusion> Normal LV systolic function Moderate to Severe Aortic Insufficiency Moderate Mitral Regurgitation
--- NOTE | 2017-02-02 00:42 | CP.PCM.PN ---
Subjective - Date & Time of Evaluation Date of Evaluation: 02/01/17 Time of Evaluation: 17:00 - Subjective Subjective: PT REFUSED ST B/C HE WANTS HIS SON PRESENT Objective - Vital Signs/Intake and Output Vital Signs (last 24 hours): Temp Pulse Resp BP Pulse Ox 97.6 F 58 L 20 137/57 L 95 02/01/17 20:02 02/01/17 21:00 02/01/17 20:02 02/01/17 20:02 02/01/17 20:02 - Medications Medications: Current Medications Acetaminophen (Tylenol 325mg Tab) 650 mg PO Q6 PRN PRN Reason: Pain, Mild (1-3) Last Admin: 01/31/17 21:53 Dose: 650 mg Allopurinol (Zyloprim) 100 mg PO DAILY [facility] Last Admin: 02/01/17 15:03 Dose: 100 mg Aspirin (Ecotrin) 81 mg PO DAILY [facility] Last Admin: 02/01/17 15:04 Dose: 81 mg Atorvastatin Calcium (Lipitor) 10 mg PO DAILY [facility] Last Admin: 02/01/17 15:04 Dose: 10 mg Enoxaparin Sodium (Lovenox) 40 mg SC DAILY [facility] PRN Reason: Protocol Last Admin: 02/01/17 15:05 Dose: 40 mg Famotidine (Pepcid) 20 mg PO DAILY [facility] Last Admin: 02/01/17 15:05 Dose: 20 mg Insulin Human Lispro (Humalog) 0 units SC [facility] PRN Reason: Protocol Last Admin: 02/01/17 21:25 Dose: Not Given Montelukast Sodium (Singulair) 10 mg PO [facility] Last Admin: 02/01/17 21:06 Dose: 10 mg Morphine Sulfate (Morphine) 1 mg IVP Q4 PRN PRN Reason: Pain, moderate (4-7) Last Admin: 02/01/17 20:54 Dose: 1 mg Pantoprazole Sodium (Protonix Ec Tab) 40 mg PO DAILY [facility] Last Admin: 02/01/17 15:04 Dose: 40 mg Sucralfate (Carafate Oral Susp) 1 gm PO [facility] Last Admin: 02/01/17 21:06 Dose: 1 gm Valsartan (Diovan) 80 mg PO DAILY [facility] Last Admin: 02/01/17 15:04 Dose: 80 mg - Labs Labs: 02/01/17 05:40 02/01/17 05:40 PT 11.2 Seconds (9.8-13.1) 01/30/17 10:45 INR 1.0 (0.9-1.2) 01/30/17 10:45 APTT 31.7 Seconds (25.6-37.1) 01/30/17 10:45 Assessment and Plan (1) Bradycardia Status: Acute (2) Murmur, diastolic Status: Acute (3) Heart murmur, systolic Status: Acute (4) Left axis deviation Status: Acute (5) Hx of coronary artery disease Status: Acute (6) Abdominal pain Status: Chronic (7) HTN (hypertension) Status: Chronic (8) Back pain Status: Acute (9) Chest pain Status: Acute
[2017-02-02] MEDS ORDERED: Aminophylline 25 mg/ml Inj ONE (08:43)
[2017-02-02] MEDS: Sucralfate 1 gm/10 ml Oral Susp UD PO SCH ×4 (09:22→23:51)
[2017-02-02] MEDS: Insulin Lispro (humaLOG) 100 Units/ml Inj SC SCH ×4 (09:23→23:54)
[2017-02-02] MEDS: Enoxaparin 40 mg Syringe SC SCH (09:23)
[2017-02-02] MEDS: Pantoprazole 40 mg EC Tab PO SCH (09:24)
--- NOTE | 2017-02-02 19:37 | CP.PCM.PN ---
Subjective - Date & Time of Evaluation Date of Evaluation: 02/02/17 Time of Evaluation: 19:35 - Subjective Subjective: breathing improved no cp Objective - Vital Signs/Intake and Output Vital Signs (last 24 hours): Temp Pulse Resp BP Pulse Ox 98 F 58 L 20 118/47 L 91 L 02/02/17 19:34 02/02/17 19:34 02/02/17 19:34 02/02/17 19:34 02/02/17 19:34 - Medications Medications: Current Medications Acetaminophen (Tylenol 325mg Tab) 650 mg PO Q6 PRN PRN Reason: Pain, Mild (1-3) Last Admin: 01/31/17 21:53 Dose: 650 mg Allopurinol (Zyloprim) 100 mg PO DAILY [facility] Last Admin: 02/02/17 09:24 Dose: 100 mg Aspirin (Ecotrin) 81 mg PO DAILY [facility] Last Admin: 02/02/17 09:23 Dose: 81 mg Atorvastatin Calcium (Lipitor) 10 mg PO DAILY [facility] Last Admin: 02/02/17 09:23 Dose: 10 mg Enoxaparin Sodium (Lovenox) 40 mg SC DAILY [facility] PRN Reason: Protocol Last Admin: 02/02/17 09:23 Dose: 40 mg Famotidine (Pepcid) 20 mg PO DAILY [facility] Last Admin: 02/02/17 09:24 Dose: 20 mg Insulin Human Lispro (Humalog) 0 units SC [facility] PRN Reason: Protocol Last Admin: 02/02/17 16:45 Dose: Not Given Montelukast Sodium (Singulair) 10 mg PO [facility] Last Admin: 02/01/17 21:06 Dose: 10 mg Morphine Sulfate (Morphine) 1 mg IVP Q4 PRN PRN Reason: Pain, moderate (4-7) Last Admin: 02/01/17 20:54 Dose: 1 mg Pantoprazole Sodium (Protonix Ec Tab) 40 mg PO DAILY [facility] Last Admin: 02/02/17 09:24 Dose: 40 mg Sucralfate (Carafate Oral Susp) 1 gm PO [facility] Last Admin: 02/02/17 16:44 Dose: 1 gm Valsartan (Diovan) 80 mg PO DAILY [facility] Last Admin: 02/02/17 09:22 Dose: 80 mg - Labs Labs: 02/01/17 05:40 02/01/17 05:40 PT 11.2 Seconds (9.8-13.1) 01/30/17 10:45 INR 1.0 (0.9-1.2) 01/30/17 10:45 APTT 31.7 Seconds (25.6-37.1) 01/30/17 10:45 Assessment and Plan (1) Bradycardia Status: Acute (2) Murmur, diastolic Status: Acute (3) Heart murmur, systolic Status: Acute (4) Left axis deviation Status: Acute (5) Hx of coronary artery disease Status: Acute (6) Abdominal pain Status: Chronic (7) HTN (hypertension) Status: Chronic (8) Back pain Status: Acute (9) Chest pain Status: Acute - Assessment and Plan (Free Text) Plan: stress pending. Echo reveals multivavlular disease. need stress results prior to proceeding. for now cont current meds. bp and hr control monitor lytes statin and antiplts. 60 min total care time
--- NOTE | 2017-02-03 08:26 | CARD ---
APPROVED REPORT Protocol: LEXISCAN Test Type: Stress Nuclear Medications: TYLENOL 325MG 650MG, ALLOPURINOL 100MG, ASPIRIN 81MG, LIPITOR 10MG , LOVENOX 40MG, PEPCID 20MG, INSULIN HUMAN MONTELUKAST 10M, MORPHINE 1MG Medical History: [place], FORMER SMOKER, DIABETES, ARTHRITIS, CARDIAC CATH 3YRS AGO WITH STENT, VASCULAR SURGERY BILATERAL LOWER LEGS, APPENDECTOMY, CHOLECYSTECTOMY Target HR: 132 bpm Resting ECG: Bradycardia Resting Heart Rate: 52 bpm Resting Blood Pressure: 141/58mmHg submaximum (85%): 112 bpm TEST SUMMARY PREINJECTPRE-[id number]. [id number]. INJECTIONNS FLUSH00:[id number]. INJECTIONNUC MED00:[id number]. [id number]. PROCEDURE Pharmacologic stress testing was performed using 0.4mg per 5ml of regadenoson given intravenously over 7-10 seconds. POST EXERCISE Reason for Termination: Pharmacologic Stress Test Target HR: No Max HR: 54 bpm 47% of Maximum Predicted HR: 132 bpm Exercise duration: 01:00 min:sec, 0 Stage Exercise capacity: 1.0METs Max Blood Pressure: 149/68mmHg Blood Pressure response to exercise: normal resting BP - appropriate response Heart Rate response to exercise: appropriate Chest Pain: No, none Angina index: 0 Arrhythmia: No, none ST Change: No, none Deviation: 0 mm Clinical Indications Under Appropriate Use Criteria This 86-year-old man underwent this study to rule out evidence of coronary artery disease. He had a history of coronary artery disease and had complained of pain all over his body including his chest. This pain was persistent for number of days and had not resulted in any troponin elevation. His resting electrocardiogram showed sinus rhythm at [address]-T changes. There were no Q waves. His resting blood pressure was 141/58 mmHg and his cardiac auscultation was unremarkable. Stress EKG Interpretation The patient underwent a resting myocardial scan after 10 mCi of sestamibi was given intravenously followed 45 minutes later by myocardial scanning. The following day the patient underwent an intravenous infusion of 0.4 mg of Lexiscan over 10 seconds followed immediately by 30 mCi of sestamibi given intravenously. The patient tolerated Lexiscan infusion without any symptoms and there were no ischemic changes on the electrocardiogram. The patient left the stress lab symptom free and hemodynamically stable. EXAM: Myocardial Perfusion REST/STRESSMyocardial Perfusion REST/STRESS Image QualityGood Imaging Protocol The imaging protocol used to acquire images was Rest Tc-99m/stress Tc-99m 1 dayRest Tc-99m/stress Tc-99m 2 days Rest Spect myocardial perfusion imaging was performed in supine position 60 minutes following the injection of 10 mCi of Tc-99 Myoview. Time of rest injection: 9:30 Time of rest imagin:30 At peak stress, the patient was injected intravenously with 30mCi of Tc-99 tetrofosmin after an infusion time of minutes and seconds. Time of stress injection: 8:51 Time of stress imagin:01 Gated Stress Spect was performed 60 minutes after intravenous Tc-99 Myoview injection. The images were gated to evaluate regional wall motion and calculate ventricular ejection fraction. LV Perfusion The post Lexiscan images showed a moderately sestamibi deficient area in the septum which on resting scan showed improved sestamibi uptake. The remaining left ventricular wall segments demonstrated normal regional sestamibi uptake. Wall Motion Gated images showed a normal-sized left ventricle with normal regional wall motion and wall thickening. His resting left ventricular ejection fraction was 63%. CONCLUSION 1. The Lexiscan stress test was suggestive of potentially ischemic myocardium in the LAD territory. His resting left ventricular ejection fraction was 63%.
[2017-02-03] MEDS: Pantoprazole 40 mg EC Tab PO SCH (08:53)
[2017-02-03] MEDS: Insulin Lispro (humaLOG) 100 Units/ml Inj SC SCH ×4 (08:53→22:00)
[2017-02-03] MEDS: Enoxaparin 40 mg Syringe SC SCH (08:54)
[2017-02-03] MEDS: Sucralfate 1 gm/10 ml Oral Susp UD PO SCH ×4 (08:56→21:08)
[2017-02-03 14:03] LABS: MEAN CELL VOLUME 84.1 fl (80.0-94.0); MEAN CORPUSCULAR HGB CONC 33.3 g/dL (33.0-37.0); RBC 4.64 Mil/uL (4.40-5.90); RED CELL DISTRIBUTION WIDTH 15.4 % (11.5-14.5); WHITE BLOOD COUNT 4.3 K/uL (4.8-10.8)
[2017-02-03 14:17] LABS: BLOOD UREA NITROGEN 22 mg/dl (9-20); CALCIUM 8.7 mg/dL (8.4-10.2); GFR AFRICAN-AMERICAN > 60; GFR NON-AFRICAN AMERICAN > 60
[2017-02-03 14:25] LABS: INR 1.1 (0.9-1.2); PROTHROMBIN TIME 11.6 Seconds (9.8-13.1)
--- NOTE | 2017-02-03 16:51 | CP.PCM.PN ---
Subjective - Date & Time of Evaluation Date of Evaluation: 02/03/17 Time of Evaluation: 16:35 Objective - Vital Signs/Intake and Output Vital Signs (last 24 hours): Temp Pulse Resp BP Pulse Ox 97.7 F 61 20 143/58 L 96 02/03/17 16:05 02/03/17 16:05 02/03/17 16:05 02/03/17 16:05 02/03/17 16:05 - Medications Medications: Current Medications Acetaminophen (Tylenol 325mg Tab) 650 mg PO Q6 PRN PRN Reason: Pain, Mild (1-3) Last Admin: 01/31/17 21:53 Dose: 650 mg Allopurinol (Zyloprim) 100 mg PO DAILY [facility] Last Admin: 02/03/17 08:54 Dose: 100 mg Aspirin (Ecotrin) 81 mg PO DAILY [facility] Last Admin: 02/03/17 08:53 Dose: 81 mg Atorvastatin Calcium (Lipitor) 10 mg PO DAILY [facility] Last Admin: 02/03/17 08:53 Dose: 10 mg Enoxaparin Sodium (Lovenox) 40 mg SC DAILY [facility] PRN Reason: Protocol Last Admin: 02/03/17 08:54 Dose: 40 mg Famotidine (Pepcid) 20 mg PO DAILY [facility] Last Admin: 02/03/17 08:53 Dose: 20 mg Insulin Human Lispro (Humalog) 0 units SC [facility] PRN Reason: Protocol Last Admin: 02/03/17 16:02 Dose: Not Given Montelukast Sodium (Singulair) 10 mg PO HS [facility] Last Admin: 02/02/17 21:17 Dose: 10 mg Morphine Sulfate (Morphine) 1 mg IVP Q4 PRN PRN Reason: Pain, moderate (4-7) Last Admin: 02/02/17 21:16 Dose: 1 mg Pantoprazole Sodium (Protonix Ec Tab) 40 mg PO DAILY [facility] Last Admin: 02/03/17 08:53 Dose: 40 mg Sucralfate (Carafate Oral Susp) 1 gm PO ACHS [facility] Last Admin: 02/03/17 16:01 Dose: 1 gm Valsartan (Diovan) 80 mg PO DAILY [facility] Last Admin: 02/03/17 08:54 Dose: 80 mg - Labs Labs: 02/03/17 13:45 02/03/17 13:45 PT 11.6 Seconds (9.8-13.1) 02/03/17 13:45 INR 1.1 (0.9-1.2) 02/03/17 13:45 APTT 31.7 Seconds (25.6-37.1) 01/30/17 10:45 Assessment and Plan (1) Bradycardia Status: Acute (2) Murmur, diastolic Status: Acute (3) Heart murmur, systolic Status: Acute (4) Left axis deviation Status: Acute (5) Hx of coronary artery disease Status: Acute (6) Abdominal pain Status: Chronic (7) HTN (hypertension) Status: Chronic (8) Back pain Status: Acute (9) Chest pain Status: Acute
[2017-02-04] MEDS: Insulin Lispro (humaLOG) 100 Units/ml Inj SC SCH ×4 (06:42→22:16)
[2017-02-04] MEDS: Sucralfate 1 gm/10 ml Oral Susp UD PO SCH ×4 (08:16→21:52)
[2017-02-04] MEDS: Enoxaparin 40 mg Syringe SC SCH (08:18)
[2017-02-04] MEDS: Pantoprazole 40 mg EC Tab PO SCH (08:19)
--- NOTE | 2017-02-04 19:15 | CP.PCM.PN ---
Subjective - Date & Time of Evaluation Date of Evaluation: 02/02/17 Time of Evaluation: 23:00 Objective - Vital Signs/Intake and Output Vital Signs (last 24 hours): Temp Pulse Resp BP Pulse Ox 97.7 F 58 L 20 152/59 H 97 02/04/17 18:20 02/04/17 18:20 02/04/17 18:20 02/04/17 18:20 02/04/17 18:20 - Medications Medications: Current Medications Acetaminophen (Tylenol 325mg Tab) 650 mg PO Q6 PRN PRN Reason: Pain, Mild (1-3) Last Admin: 01/31/17 21:53 Dose: 650 mg Allopurinol (Zyloprim) 100 mg PO DAILY [facility] Last Admin: 02/04/17 08:20 Dose: Not Given Aspirin (Ecotrin) 81 mg PO DAILY [facility] Last Admin: 02/04/17 08:17 Dose: Not Given Atorvastatin Calcium (Lipitor) 10 mg PO DAILY [facility] Last Admin: 02/04/17 08:17 Dose: Not Given Enoxaparin Sodium (Lovenox) 40 mg SC DAILY [facility] PRN Reason: Protocol Last Admin: 02/04/17 08:18 Dose: Not Given Famotidine (Pepcid) 20 mg PO DAILY [facility] Last Admin: 02/04/17 08:19 Dose: Not Given Insulin Human Lispro (Humalog) 0 units SC [facility] PRN Reason: Protocol Last Admin: 02/04/17 16:30 Dose: Not Given Montelukast Sodium (Singulair) 10 mg PO HS [facility] Last Admin: 02/03/17 23:00 Dose: 10 mg Morphine Sulfate (Morphine) 1 mg IVP Q4 PRN PRN Reason: Pain, moderate (4-7) Last Admin: 02/02/17 21:16 Dose: 1 mg Pantoprazole Sodium (Protonix Ec Tab) 40 mg PO DAILY [facility] Last Admin: 02/04/17 08:19 Dose: Not Given Sucralfate (Carafate Oral Susp) 1 gm PO ACHS [facility] Last Admin: 02/04/17 16:30 Dose: Not Given Valsartan (Diovan) 80 mg PO DAILY [facility] Last Admin: 02/04/17 08:17 Dose: Not Given - Labs Labs: 02/03/17 13:45 02/03/17 13:45 PT 11.6 Seconds (9.8-13.1) 02/03/17 13:45 INR 1.1 (0.9-1.2) 02/03/17 13:45 APTT 31.7 Seconds (25.6-37.1) 01/30/17 10:45
--- NOTE | 2017-02-04 19:16 | CP.PCM.PN ---
Subjective - Date & Time of Evaluation Date of Evaluation: 02/03/17 Time of Evaluation: 17:00 Objective - Vital Signs/Intake and Output Vital Signs (last 24 hours): Temp Pulse Resp BP Pulse Ox 97.7 F 58 L 20 152/59 H 97 02/04/17 18:20 02/04/17 18:20 02/04/17 18:20 02/04/17 18:20 02/04/17 18:20 - Medications Medications: Current Medications Acetaminophen (Tylenol 325mg Tab) 650 mg PO Q6 PRN PRN Reason: Pain, Mild (1-3) Last Admin: 01/31/17 21:53 Dose: 650 mg Allopurinol (Zyloprim) 100 mg PO DAILY [facility] Last Admin: 02/04/17 08:20 Dose: Not Given Aspirin (Ecotrin) 81 mg PO DAILY [facility] Last Admin: 02/04/17 08:17 Dose: Not Given Atorvastatin Calcium (Lipitor) 10 mg PO DAILY [facility] Last Admin: 02/04/17 08:17 Dose: Not Given Enoxaparin Sodium (Lovenox) 40 mg SC DAILY [facility] PRN Reason: Protocol Last Admin: 02/04/17 08:18 Dose: Not Given Famotidine (Pepcid) 20 mg PO DAILY [facility] Last Admin: 02/04/17 08:19 Dose: Not Given Insulin Human Lispro (Humalog) 0 units SC [facility] PRN Reason: Protocol Last Admin: 02/04/17 16:30 Dose: Not Given Montelukast Sodium (Singulair) 10 mg PO HS [facility] Last Admin: 02/03/17 23:00 Dose: 10 mg Morphine Sulfate (Morphine) 1 mg IVP Q4 PRN PRN Reason: Pain, moderate (4-7) Last Admin: 02/02/17 21:16 Dose: 1 mg Pantoprazole Sodium (Protonix Ec Tab) 40 mg PO DAILY [facility] Last Admin: 02/04/17 08:19 Dose: Not Given Sucralfate (Carafate Oral Susp) 1 gm PO ACHS [facility] Last Admin: 02/04/17 16:30 Dose: Not Given Valsartan (Diovan) 80 mg PO DAILY [facility] Last Admin: 02/04/17 08:17 Dose: Not Given - Labs Labs: 02/03/17 13:45 02/03/17 13:45 PT 11.6 Seconds (9.8-13.1) 02/03/17 13:45 INR 1.1 (0.9-1.2) 02/03/17 13:45 APTT 31.7 Seconds (25.6-37.1) 01/30/17 10:45
--- NOTE | 2017-02-04 19:17 | CP.PCM.PN ---
Subjective - Date & Time of Evaluation Date of Evaluation: 02/04/17 Time of Evaluation: 19:15 Objective - Vital Signs/Intake and Output Vital Signs (last 24 hours): Temp Pulse Resp BP Pulse Ox 97.7 F 58 L 20 152/59 H 97 02/04/17 18:20 02/04/17 18:20 02/04/17 18:20 02/04/17 18:20 02/04/17 18:20 - Medications Medications: Current Medications Acetaminophen (Tylenol 325mg Tab) 650 mg PO Q6 PRN PRN Reason: Pain, Mild (1-3) Last Admin: 01/31/17 21:53 Dose: 650 mg Allopurinol (Zyloprim) 100 mg PO DAILY [facility] Last Admin: 02/04/17 08:20 Dose: Not Given Aspirin (Ecotrin) 81 mg PO DAILY [facility] Last Admin: 02/04/17 08:17 Dose: Not Given Atorvastatin Calcium (Lipitor) 10 mg PO DAILY [facility] Last Admin: 02/04/17 08:17 Dose: Not Given Enoxaparin Sodium (Lovenox) 40 mg SC DAILY [facility] PRN Reason: Protocol Last Admin: 02/04/17 08:18 Dose: Not Given Famotidine (Pepcid) 20 mg PO DAILY [facility] Last Admin: 02/04/17 08:19 Dose: Not Given Insulin Human Lispro (Humalog) 0 units SC [facility] PRN Reason: Protocol Last Admin: 02/04/17 16:30 Dose: Not Given Montelukast Sodium (Singulair) 10 mg PO HS [facility] Last Admin: 02/03/17 23:00 Dose: 10 mg Morphine Sulfate (Morphine) 1 mg IVP Q4 PRN PRN Reason: Pain, moderate (4-7) Last Admin: 02/02/17 21:16 Dose: 1 mg Pantoprazole Sodium (Protonix Ec Tab) 40 mg PO DAILY [facility] Last Admin: 02/04/17 08:19 Dose: Not Given Sucralfate (Carafate Oral Susp) 1 gm PO ACHS [facility] Last Admin: 02/04/17 16:30 Dose: Not Given Valsartan (Diovan) 80 mg PO DAILY [facility] Last Admin: 02/04/17 08:17 Dose: Not Given - Labs Labs: 02/03/17 13:45 02/03/17 13:45 PT 11.6 Seconds (9.8-13.1) 02/03/17 13:45 INR 1.1 (0.9-1.2) 02/03/17 13:45 APTT 31.7 Seconds (25.6-37.1) 01/30/17 10:45
[2017-02-05 06:06] LABS: BASO # 0.1 K/uL (0.0-0.2); EOS # 0.1 K/uL (0.0-0.7); EOS % 1.8 % (0.0-4.0); HEMOGLOBIN 13.3 g/dL (12.0-18.0); LYMPH # 1.5 K/uL (1.0-4.3); LYMPH % 24.3 % (20.0-40.0); MEAN CELL VOLUME 85.3 fl (80.0-94.0); MEAN CORPUSCULAR HEMOGLOBIN 27.5 pg (27.0-31.0); MEAN CORPUSCULAR HGB CONC 32.2 g/dL (33.0-37.0); MONO # 0.5 K/uL (0.0-0.8); MONO % 7.9 % (0.0-10.0); NEUT # 4.1 K/uL (1.8-7.0); RBC 4.85 Mil/uL (4.40-5.90); RED CELL DISTRIBUTION WIDTH 15.6 % (11.5-14.5); WHITE BLOOD COUNT 6.3 K/uL (4.8-10.8)
[2017-02-05 06:18] LABS: BLOOD UREA NITROGEN 17 mg/dl (9-20); CALCIUM 8.8 mg/dL (8.4-10.2); GFR AFRICAN-AMERICAN > 60; GFR NON-AFRICAN AMERICAN > 60
[2017-02-05] MEDS: Insulin Lispro (humaLOG) 100 Units/ml Inj SC SCH ×3 (06:37→16:35)
[2017-02-05] MEDS: Sucralfate 1 gm/10 ml Oral Susp UD PO SCH ×3 (08:12→16:34)
[2017-02-05] MEDS: Pantoprazole 40 mg EC Tab PO SCH (09:01)
[2017-02-05] MEDS: Enoxaparin 40 mg Syringe SC SCH (09:02)
[2017-02-05 15:32] VITALS: BP 149/73; PULSE 65; RESP 20; TEMP 98; O2SAT 98
--- NOTE | 2017-02-05 23:10 | CP.PCM.DIS ---
Provider - Provider Date of Admission: 01/31/17 14:41 Attending physician: Patti Moran MD Time Spent in preparation of Discharge (in minutes): 25 Hospital Course - Lab Results Lab Results: Most Recent Lab Values WBC 6.3 K/uL (4.8-10.8) 02/05/17 05:35 RBC 4.85 Mil/uL (4.40-5.90) 02/05/17 05:35 Hgb 13.3 g/dL (12.0-18.0) 02/05/17 05:35 Hct 41.4 % (35.0-51.0) 02/05/17 05:35 MCV 85.3 fl (80.0-94.0) 02/05/17 05:35 MCH 27.5 pg (27.0-31.0) 02/05/17 05:35 MCHC 32.2 g/dL (33.0-37.0) L 02/05/17 05:35 RDW 15.6 % (11.5-14.5) H 02/05/17 05:35 Plt Count 136 K/uL (130-400) 02/05/17 05:35 MPV 10.0 fl (7.2-11.7) 02/05/17 05:35 Neut % (Auto) 65.0 % (50.0-75.0) 02/05/17 05:35 Lymph % (Auto) 24.3 % (20.0-40.0) 02/05/17 05:35 Jasper % (Auto) 7.9 % (0.0-10.0) 02/05/17 05:35 Eos % (Auto) 1.8 % (0.0-4.0) 02/05/17 05:35 Baso % (Auto) 1.0 % (0.0-2.0) 02/05/17 05:35 Neut # 4.1 K/uL (1.8-7.0) 02/05/17 05:35 Lymph # 1.5 K/uL (1.0-4.3) 02/05/17 05:35 Jasper # 0.5 K/uL (0.0-0.8) 02/05/17 05:35 Eos # 0.1 K/uL (0.0-0.7) 02/05/17 05:35 Baso # 0.1 K/uL (0.0-0.2) 02/05/17 05:35 ESR 12 mm/hr (0-20) 02/01/17 05:40 PT 11.6 Seconds (9.8-13.1) 02/03/17 13:45 INR 1.1 (0.9-1.2) 02/03/17 13:45 APTT 31.7 Seconds (25.6-37.1) 01/30/17 10:45 D-Dimer, Quantitative 369 ng/mlDDU (0-230) H 02/01/17 05:40 Sodium 140 mmol/l (132-148) 02/05/17 05:35 Potassium 4.2 MMOL/L (3.6-5.0) 02/05/17 05:35 Chloride 110 mmol/L (98-107) H 02/05/17 05:35 Carbon Dioxide 20 mmol/L (22-30) L 02/05/17 05:35 Anion Gap 14 (10-20) 02/05/17 05:35 BUN 17 mg/dl (9-20) 02/05/17 05:35 Creatinine 0.7 mg/dL (0.8-1.5) L 02/05/17 05:35 Est GFR ( Amer) > 60 02/05/17 05:35 Est GFR (Non-Af Amer) > 60 02/05/17 05:35 POC Glucose (mg/dL) 105 mg/dL (65-110) 02/05/17 16:24 Random Glucose 103 mg/dL (75-110) 02/05/17 05:35 Calcium 8.8 mg/dL (8.4-10.2) 02/05/17 05:35 Magnesium 2.1 MG/DL (1.6-2.3) 02/01/17 05:40 Total Bilirubin 0.8 mg/dl (0.2-1.3) 02/01/17 05:40 AST 30 U/L (17-59) 02/01/17 05:40 ALT 26 U/L (21-72) 02/01/17 05:40 Alkaline Phosphatase 56 U/L (38-126) 02/01/17 05:40 Troponin I < 0.0120 ng/mL (0.00-0.120) 01/31/17 07:00 NT-Pro-B Natriuret Pep 265 pg/ml (0-900) 01/30/17 10:45 Total Protein 6.4 G/DL (6.3-8.2) 02/01/17 05:40 Albumin 3.8 g/dL (3.5-5.0) 02/01/17 05:40 Globulin 2.7 gm/dL (2.2-3.9) 02/01/17 05:40 Albumin/Globulin Ratio 1.4 (1.0-2.1) 02/01/17 05:40 Lipase 68 U/L (23-300) 01/30/17 10:45 TSH 3rd Generation 2.46 mIU/ML (0.46-4.68) 01/30/17 19:35 Urine Color Yellow (YELLOW) 01/30/17 16:25 Urine Clarity Clear (Clear) 01/30/17 16:25 Urine pH 7.0 (5.0-8.0) 01/30/17 16:25 Ur Specific Shirley 1.050 (1.003-1.030) H 01/30/17 16:25 Urine Protein Negative mg/dL (NEGATIVE) 01/30/17 16:25 Urine Glucose (UA) Neg mg/dL (Normal) 01/30/17 16:25 Urine Ketones Negative mg/dL (NEGATIVE) 01/30/17 16:25 Urine Blood Negative (NEGATIVE) 01/30/17 16:25 Urine Nitrate Negative (NEGATIVE) 01/30/17 16:25 Urine Bilirubin Negative (NEGATIVE) 01/30/17 16:25 Urine Urobilinogen 0.2-1.0 mg/dL (0.2-1.0) 01/30/17 16:25 Ur Leukocyte Esterase Neg Mendy/uL (Negative) 01/30/17 16:25 Urine RBC (Auto) 3 /hpf (0-3) 01/30/17 16:25 Urine Microscopic WBC 1 /hpf (0-5) 01/30/17 16:25 Ur Squamous Epith Cells < 1 /hpf (0-5) 01/30/17 16:25 Discharge Exam - Head Exam Head Exam: ATRAUMATIC, NORMAL INSPECTION, NORMOCEPHALIC Discharge Plan - Discharge Medications Prescriptions: Sucralfate [Carafate Oral Susp] 1 gm PO ACHS #30 Aspirin [Ecotrin] 81 mg PO DAILY #30 Pantoprazole [Protonix EC Tab] 40 mg PO DAILY #30 ect - Follow Up Plan Condition: STABLE Disposition: HOME/ ROUTINE Instructions: Chest Pain (DC), Acute Abdominal Pain (DC), Acute Abdominal Pain (GEN) Additional Instructions: patient cleared for discharge to home today by Dr.Seman Franny Rx for meds provided see reconciliation f/u with pmd outpatient Referrals: Navarro Pérez MD [Staff Provider] - Dulce Allen MD [Staff Provider] -
== END 2017-02-05 16:48 | disposition home or self-care (01) | DRG 139 ==
LOC: H.ER 10:06 → H.ERHOLD 14:41 → UNDOADMOB 16:08 → H.ERHOLD 16:08 → H.EROBSV 16:08 → H.TEL 20:56 → OBSVTOIN 01-31 14:41
PROVIDERS: ADMIT Internal Medicine; ATTEND Internal Medicine
DX: R00.1 Bradycardia, unspecified (principal); I38 Endocarditis, valve unspecified; G20 Parkinson's disease; E11.9 Type 2 diabetes mellitus without complications; I10 Essential (primary) hypertension; I25.10 Atherosclerotic heart disease of native coronary artery without angina pectoris; R07.9 Chest pain, unspecified; E78.5 Hyperlipidemia, unspecified; R01.1 Cardiac murmur, unspecified; E78.00 Pure hypercholesterolemia, unspecified; J45.909 Unspecified asthma, uncomplicated; N40.0 Benign prostatic hyperplasia without lower urinary tract symptoms; Z95.5 Presence of coronary angioplasty implant and graft; Z87.891 Personal history of nicotine dependence; Z79.82 Long term (current) use of aspirin; Z90.49 Acquired absence of other specified parts of digestive tract

== ENCOUNTER 2017-11-05 20:16 | Emergency (ER) | payer MEDICAID ==
[2017-11-05 20:16] VITALS: BMI 32.9
[2017-11-05 20:38] VITALS: RESP 18
[2017-11-05] MEDS ORDERED: Iohexol 240 (50 ml) PO ONE (21:46)
[2017-11-05] MEDS ORDERED: Sodium Chloride 0.9% 500 ML IV STA (21:47)
--- NOTE | 2017-11-05 22:05 | ED PDOC ---
HPI: Abdomen Chief Complaint (Provider): abdominal pain History Per: Patient, Family (son at bedside) History/Exam Limitations: no limitations Onset/Duration Of Symptoms: Days (1) Outside of [place] travel?: No Current Symptoms Are (Timing): Still Present (worsening) Severity: Severe Pain Scale Rating Of: 10 Location Of Pain/Discomfort: RUQ, RLQ Quality Of Discomfort: Sharp Associated Symptoms: Loss Of Appetite. denies: Fever, Chills, Nausea, Vomiting , Diarrhea, Constipation, Urinary Symptoms Exacerbating Factors: Movement, Walking Alleviating Factors: None Last Bowel Movement: Yesterday (soft, normal) <Shannon Paulson - Last Filed: 11/05/17 23:44> <Eli Linda - Last Filed: 11/06/17 00:01> Time Seen by Provider: 11/05/17 21:14 Chief Complaint (Nursing): Abdominal Pain Additional Complaint(s): 87 yr old M brought in by son with complaint of severe worsening RLQ abdominal pain which began yesterday. PMHx includes hypertension, dementia, gout, appendectomy. Pain is 10/10, exacerbated by movement and walking, not alleviated by anything. He took ibuprofen 40 min prior to arrival and this provided no relief. Associated symptoms are loss of appetite, overall malaise. Denies nausea, vomiting, fevers, chills, diarrhea or constipation. PMD: Kevin Carmichael SurgHx: appendectomy, abdominal hernia repair, internal hemorrhoidectomy Medications: Valsartan/HCTZ 160/12.5 mg PO QD, Sucralfate 1gm PO QD, Ibuprofen 600mg PO PRN pain, Omeprazole 40 mg PO QD, Simvastatin 20mg PO QHS, vit D 50, 000 unit tab Qweekly, Tramadol 50mg PO Q12, Memantine 5mg PO QD, Venlafaxine 150mg PO QD, Benzonotate 100mg PO Q12, Allopurinol 100mg PO QD, Aspirin 81mg PO QD Allergies: NKDA (Shannon Paulson) Supervising Attending Note <Shannon Paulson - Last Filed: 11/05/17 23:44> - Supervising Attending Note The Documented history was done by the: Physician Sheet Metal Foreman, Attending Physician The documented physical exam was done by the: Physician Sheet Metal Foreman, Attending Physician - Attestation: I have personally seen and examined this patient.: Yes I have fully participated in the care of the patient.: Yes I have reviewed all pertinent clinical information: Yes <Eli Linda - Last Filed: 11/06/17 00:01> - Notes: Notes:: Abdominal pain RUQ/RLQ (Eli Linda) Past Medical History - Medical History PMH: Arthritis, Asthma, Benign Prostatic Hyperplasia, Depression, Diabetes, HTN , Hypercholesterolemia, Hyperlipidemia, Parkinson's Disease, Pneumonia Denies: Anemia, CHF, COPD, HIV, Hypothyroidism, Chronic Kidney Disease, Rheumatoid Arthritis - Surgical History Surgical History: Appendectomy, Cholecystectomy, Coronary Stent - Family History Family History: States: Unknown Family Hx - Living Arrangements Living Arrangements: With Family - Social History Current smoker - smoking cessation education provided: No Ex-Smoker (has not smoked in the last 12 months): No Alcohol: None Drugs: Denies <Shannon Paulson - Last Filed: 11/05/17 23:44> <Eli Linda - Last Filed: 11/06/17 00:01> Vital Signs: Last Vital Signs Temp 98 F 11/05/17 23:31 Pulse 53 L 11/05/17 23:31 Resp 18 11/05/17 23:31 BP 153/60 H 11/05/17 23:31 Pulse Ox 95 11/05/17 23:44 - Home Medications Home Medications: Ambulatory Orders Medication Instructions Recorded Simvastatin 20 mg PO DAILY 10/06/15 Famotidine [Pepcid] 20 mg PO DAILY 04/25/16 Valsartan/Hydrochlorothiazide 1 tab PO DAILY 08/01/16 [Valsartan-Hctz 80-12.5 mg Tab] Allopurinol [Zyloprim] 100 mg PO DAILY 11/30/16 Montelukast Sodium [Singulair] 10 mg PO HS 11/30/16 Pantoprazole [Protonix EC Tab] 40 mg PO DAILY #30 ect 02/01/17 Sucralfate [Carafate Oral Susp] 1 gm PO ACHS #30 02/01/17 Aspirin [Ecotrin] 81 mg PO DAILY #30 02/05/17 - Allergies Allergies/Adverse Reactions: Allergies Allergy/AdvReac Type Severity Reaction Status Date / Time No Known Allergies Allergy Verified 11/05/17 20:34 Review of Systems Constitutional: Positive for: Malaise. Negative for: Fever, Chills, Sweats Eyes: Negative for: Redness ENT: Negative for: Nose Discharge, Throat Pain, Throat Swelling Cardiovascular: Negative for: Chest Pain, Palpitations, Edema, Light Headedness Respiratory: Negative for: Cough, Shortness of Breath, Hemoptysis Gastrointestinal: Positive for: Abdominal Pain, Other (loss of appetite). Negative for: Nausea, Vomiting, Diarrhea, Constipation Genitourinary Male: Negative for: Dysuria, Frequency Musculoskeletal: Negative for: Neck Pain, Shoulder Pain, Arm Pain Skin: Negative for: Rash, Lesions Neurological: Positive for: Other (difficulty ambulating due to RLQ pain) <Shannon Paulson - Last Filed: 11/05/17 23:44> Physical Exam - Physical Exam Appears: Positive for: Uncomfortable Head Exam: Positive for: ATRAUMATIC, NORMOCEPHALIC Skin: Positive for: Normal Color, Warm, Dry. Negative for: Jaundice Eye Exam: Positive for: EOMI, PERRL ENT: Positive for: TM Is/Are (normal bilaterally). Negative for: Pharyngeal Erythema, Tonsillar Exudate Neck: Positive for: Painless ROM, Supple Cardiovascular/Chest: Positive for: Regular Rate, Rhythm. Negative for: Gallop , Murmur Respiratory: Positive for: Normal Breath Sounds. Negative for: Rales, Rhonchi Pulses-Carotid (L): 2+ Pulses-Carotid (R): 2+ Pulses-Radial (L): 2+ Pulses-Radial (R): 2+ Gastrointestinal/Abdominal: Positive for: Bowel Sounds (present), Soft, Tenderness (significant tenderness to palpation in RUQ, RLQ ). Negative for: Distended, Guarding, Rebound Back: Positive for: R CVA Tenderness. Negative for: L CVA Tenderness Extremity: Positive for: Normal ROM. 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 <Shanonn Paulson - Last Filed: 11/05/17 23:44> - Laboratory Results Result Diagrams: 11/05/17 22:40 11/05/17 22:40 - ECG O2 Sat by Pulse Oximetry: 95 <Shannon Paulson - Last Filed: 11/05/17 23:44> - Laboratory Results Result Diagrams: 11/05/17 22:40 11/05/17 22:40 <Eli Linda - Last Filed: 11/06/17 00:01> - Progress ED Course And Treament: -CBC w/diff wnl, CMP wnl, lipase, lactic acid, PT/PTT wnl, Udip, blood culture, type and screen -Abd/Pelvis with PO and IV contrast pending -NS 500mls IV bolus -Morphine 2mg IV ordered -23:43: vital signs stable (Shannon Paulson) Disposition - Disposition Disposition Time: 23:42 <Shannon Paulson - Last Filed: 11/05/17 23:44> - Disposition Disposition: Transfer of Care Disposition Time: 00:00 Patient Signed Over To: Shaan Ya Handoff Comments: Pending CT, reasessment and final ER disposition <Eli Linda - Last Filed: 11/06/17 00:01> - Clinical Impression Clinical Impression: Abdominal pain - Disposition Condition: STABLE
[2017-11-05 22:52] LABS: BASO % 0.9 % (0.0-2.0); EOS # 0.1 K/uL (0.0-0.7); EOS % 2.5 % (0.0-4.0); HEMOGLOBIN 12.1 g/dL (12.0-18.0); LYMPH # 1.4 K/uL (1.0-4.3); MEAN CELL VOLUME 84.5 fl (80.0-94.0); MEAN CORPUSCULAR HEMOGLOBIN 27.4 pg (27.0-31.0); MEAN CORPUSCULAR HGB CONC 32.4 g/dL (33.0-37.0); MEAN PLATELET VOLUME 10.8 fl (7.2-11.7); MONO # 0.5 K/uL (0.0-0.8); MONO % 10.3 % (0.0-10.0); NEUT # 2.7 K/uL (1.8-7.0); NEUT % 56.3 % (50.0-75.0); RBC 4.41 Mil/uL (4.40-5.90); RED CELL DISTRIBUTION WIDTH 15.8 % (11.5-14.5); WHITE BLOOD COUNT 4.8 K/uL (4.8-10.8)
[2017-11-05 23:07] LABS: ALB/GLOB RATIO 1.1 (1.0-2.1); ALBUMIN 3.5 g/dL (3.5-5.0); ALT/SGPT 47 U/L (21-72); AST/SGOT 37 U/L (17-59); BLOOD UREA NITROGEN 27 mg/dl (9-20); CALCIUM 8.6 mg/dL (8.4-10.2); GFR AFRICAN-AMERICAN > 60; GFR NON-AFRICAN AMERICAN > 60; LIPASE 84 U/L (23-300)
[2017-11-05 23:19] LABS: PARTIAL THROMBOPLASTIN TIME 31.3 Seconds (25.6-37.1)
[2017-11-06] MEDS ORDERED: Iohexol 300 100 ML IJ ONE (00:17)
[2017-11-06] MEDS ORDERED: Sodium Chloride 0.9% 100 ML ONE (00:17)
--- NOTE | 2017-11-06 00:58 | ED PDOC ---
"- Laboratory Results Result Diagrams: 11/05/17 22:40 11/05/17 22:40 - ECG O2 Sat by Pulse Oximetry: 95 (RA) - Progress Re-evaluation Time: 03:22 Condition: Re-examined, Improved Medical Decision Making Medical Decision Making: Patient signed out to me by Dr. iLnda, pending CT Scan, re-assessment and final disposition. Time: 02:48 CT Abdomen and Pelvis With Intravenous Contrast FINDINGS: The liver is normal. The spleen is normal. The pancreas is normal. There is questionable slight irregularity of the gallbladder wall. Evaluation is limited by motion. No gallstones or pericholecystic stranding identified. Areas of cortical scarring in the right kidney. The right and transverse colon are distended with stool consistent with mild constipation. Appendectomy. EDWARDSISIDRO | Final Radiology Report CONFIDENTIALITY STATEMENT This report is intended only for use by the referring physician, and only in accordance with law. If you received this in error, call [phone]. Page 2 of 2 No aortic aneurysm or dissection. There are degenerative changes in the osseous structures. IMPRESSION: Right-sided constipation. Questionable irregularity of the gallbladder wall that could be further evaluated with ultrasound if indicated. Upon provider evaluation patient is medically stable, and requires no further treatment in the ED at this time. Patient will be discharged. Counseling was provided and all questions were answered regarding diagnosis and need for follow up with PCP in 2-3 days. There is agreement to discharge plan. Return if symptoms persist or worsen. Scribe Attestation: Documented by Krish Mosley, acting as a scribe for Shaan Ya MD. Provider Scribe Attestation: All medical record entries made by the Scribe were at my direction and personally dictated by me. I have reviewed the chart and agree that the record accurately reflects my personal performance of the history, physical exam, medical decision making, and the department course for this patient. I have also personally directed, reviewed, and agree with the discharge instructions and disposition. Disposition Counseled Patient/Family Regarding: Studies Performed, Diagnosis - Clinical Impression Clinical Impression: Abdominal pain - POA Present On Arrival: None - Disposition Referrals: [facility] [Outside] Disposition: Routine/Home Disposition Time: 03:22 Condition: GOOD Additional Instructions: Return for worsening. Follow up with your PCP in 2-3 days. Instructions: Acute Abdomen (Belly Pain), Adult (DC) Print Language: KHMER"
--- NOTE | 2017-11-06 02:48 | CT ---
EXAM: CT Abdomen and Pelvis With Intravenous Contrast EXAM DATE/TIME: 11/05/2017 9:46 PM CLINICAL HISTORY: 87 years old, male; Pain; Abdominal pain; Localized; Right lower quadrant (rlq); Prior surgery; Surgery date: 6+ months; Surgery type: Appendectomy, hernia repair, ; additional info: Rlq/ruq pain TECHNIQUE: Axial computed tomography images of the abdomen and pelvis with intravenous contrast. All CT scans at this facility use one or more dose reduction techniques, viz.: automated exposure control; ma/kV adjustment per patient size (including targeted exams where dose is matched to indication; i.e. head); or iterative reconstruction technique. Coronal and sagittal reformatted images were created and reviewed. CONTRAST: 90 mL of [id number] administered intravenously. COMPARISON: CT - ABD PELVIS IV CONTRAST ONLY 2017-01-30 11:33 FINDINGS: The liver is normal. The spleen is normal. The pancreas is normal. There is questionable slight irregularity of the gallbladder wall. Evaluation is limited by motion. No gallstones or pericholecystic stranding identified. Areas of cortical scarring in the right kidney. The right and transverse colon are distended with stool consistent with mild constipation. Appendectomy. No aortic aneurysm or dissection. There are degenerative changes in the osseous structures. IMPRESSION: Right-sided constipation. Questionable irregularity of the gallbladder wall that could be further evaluated with ultrasound if indicated.
[2017-11-06 04:11] VITALS: BP 154/70; PULSE 54; TEMP 98.8; O2SAT 97
== END 2017-11-06 04:05 | disposition home or self-care (01) ==
LOC: H.ER 20:16
DX: R10.31 Right lower quadrant pain (principal); K59.00 Constipation, unspecified; I10 Essential (primary) hypertension; G20 Parkinson's disease; F03.90 Unspecified dementia, unspecified severity, without behavioral disturbance, psychotic disturbance, mood disturbance, and anxiety; E11.9 Type 2 diabetes mellitus without complications; E78.00 Pure hypercholesterolemia, unspecified; F32.9 Major depressive disorder, single episode, unspecified; J45.909 Unspecified asthma, uncomplicated; N40.0 Benign prostatic hyperplasia without lower urinary tract symptoms; Z79.82 Long term (current) use of aspirin; Z87.891 Personal history of nicotine dependence; Z95.5 Presence of coronary angioplasty implant and graft
CPT/HCPCS: 74177; 80053; 83605; 83690; 85025; 85610; 85730; 86850; 86900; 87040; 96374; 99285; J2270; J7040; Q9966; Q9967

== ENCOUNTER 2018-01-13 20:13 | Inpatient (IN) | payer MEDICAID ==
[2018-01-13 20:13] VITALS: BMI 32.9
--- NOTE | 2018-01-13 20:50 | ED PDOC ---
HPI: Abdomen Time Seen by Provider: 01/13/18 20:25 Chief Complaint (Nursing): Abdominal Pain Chief Complaint (Provider): abdominal pain History Per: Patient, Family History/Exam Limitations: no limitations Onset/Duration Of Symptoms: Hrs (4) Current Symptoms Are (Timing): Still Present Location Of Pain/Discomfort: Diffuse Last Bowel Movement: Today Additional Complaint(s): 87 y/o male brought in by family for evaluation of acute onset abdominal pain x 4 hours. Patient states pain started in upper abdomen, has since spread all over. No improvement with Ranitidine taken at 18:00. Denies fever, chest pain, shortness of breath, palpitations, leg pain/swelling, urinary symptoms, changes in bowel movements. Past Medical History Reviewed: Historical Data, Nursing Documentation, Vital Signs Vital Signs: Last Vital Signs Temp 98.6 F 01/17/18 07:58 Pulse 81 01/17/18 09:32 Resp 20 01/17/18 07:58 BP 159/61 H 01/17/18 09:32 Pulse Ox 95 01/17/18 07:58 - Medical History PMH: Arthritis, Asthma, Benign Prostatic Hyperplasia, Depression, Diabetes, HTN , Hypercholesterolemia, Hyperlipidemia, Parkinson's Disease, Pneumonia Denies: Anemia, CHF, COPD, HIV, Hypothyroidism, Chronic Kidney Disease, Rheumatoid Arthritis - Surgical History Surgical History: Appendectomy, Coronary Stent - Family History Family History: States: Unknown Family Hx - Home Medications Home Medications: Ambulatory Orders Medication Instructions Recorded Simvastatin 20 mg PO DAILY 10/06/15 Valsartan/Hydrochlorothiazide 1 tab PO DAILY 08/01/16 [Valsartan-Hctz 80-12.5 mg Tab] Allopurinol [Zyloprim] 100 mg PO DAILY 11/30/16 Montelukast Sodium [Singulair] 10 mg PO HS 11/30/16 Pantoprazole [Protonix EC Tab] 40 mg PO DAILY #30 ect 02/01/17 Aspirin [Ecotrin] 81 mg PO DAILY #30 02/05/17 Alendronate Sodium [Binosto] 70 mg PO QWK 01/14/18 Docusate [Colace] 100 mg PO BID 01/14/18 Ergocalciferol [Drisdol 50,000 1 cap PO QWK 01/14/18 Intl Units Cap] Memantine [Namenda] 5 mg PO DAILY 01/14/18 Sucralfate [Carafate Tab] 1 gm PO Q6 PRN 01/14/18 Venlafaxine [Effexor XR] 1 tab PO DAILY 01/14/18 traMADol [Ultram] 1 tab Q12 PRN 01/14/18 Ciprofloxacin [Cipro] 500 mg PO Q12 #12 tab 01/17/18 Metronidazole [Flagyl] 500 mg PO TID #15 tablet 01/17/18 amLODIPine [Norvasc] 5 mg PO DAILY #30 tab 01/17/18 - Allergies Allergies/Adverse Reactions: Allergies Allergy/AdvReac Type Severity Reaction Status Date / Time No Known Allergies Allergy Verified 11/05/17 20:34 Review of Systems ROS Statement: Except As Marked, All Systems Reviewed And Found Negative Gastrointestinal: Positive for: Abdominal Pain Physical Exam - Reviewed Nursing Documentation Reviewed: Yes Vital Signs Reviewed: Yes - Physical Exam Appears: Positive for: Well, Non-toxic, Uncomfortable Head Exam: Positive for: ATRAUMATIC, NORMAL INSPECTION, NORMOCEPHALIC Skin: Positive for: Normal Color Eye Exam: Positive for: Normal appearance ENT: Positive for: Normal ENT Inspection Cardiovascular/Chest: Positive for: Regular Rate, Rhythm Respiratory: Positive for: Normal Breath Sounds Gastrointestinal/Abdominal: Positive for: Bowel Sounds, Soft, Tenderness ( diffuse tenderness; worse epigastric, RUQ) Back: Positive for: Normal Inspection Extremity: Positive for: Normal ROM Neurologic/Psych: Positive for: Alert, Oriented - Laboratory Results Result Diagrams: 01/15/18 05:30 01/16/18 08:30 - ECG ECG: Positive for: Viewed By Me (reviewed by ED attending) ECG Rhythm: Positive for: Sinus Bradycardia, Nonspecific Changes O2 Sat by Pulse Oximetry: 94 - Radiology X-Ray: Viewed By Me X-Ray Interpretation: No Acute Disease - Progress ED Course And Treament: labs, RUQ u/s, IV protonix, IV morphine EXAM: US Abdomen Limited, Right Upper Quadrant EXAM DATE/TIME: 01/13/2018 8:34 PM CLINICAL HISTORY: 87 years old, male; Pain; Abdominal pain; Epigastric; Additional info: Abd pain TECHNIQUE: Real-time ultrasound of the abdomen with image documentation. Examination is focused on the right upper quadrant. COMPARISON: No relevant prior studies available. FINDINGS: Liver: Normal echogenicity. No mass. No intrahepatic bile duct dilatation. Gallbladder: Gallstones. Up to 0.81 cm wall thickness. Trace pericholecystic fluid. No sonographic Van's sign. Common bile duct: No dilatation. No stones. Pancreas: Unremarkable as visualized. Right kidney: Normal echogenicity. No hydronephrosis. IMPRESSION: Findings concerning for acute cholecystitis. Clinical correlation is needed. IV fluids, IV zosyn ordered Case discussed with Dr. Reed, GI Fellow with Dr. Norman regarding consult Patient evaluated by Dr. Dee, residential assistant on-call for consult Case discussed with Dr. Smith, medical service on-call, for admission; recommends NPO Disposition - Clinical Impression Clinical Impression: Acute cholecystitis, Gallstone pancreatitis - Patient ED Disposition Is Patient to be Admitted: Yes - Disposition Disposition Time: 23:30 Condition: FAIR
[2018-01-13 21:59] LABS: BASO # 0.1 K/uL (0.0-0.2); BASO % 0.6 % (0.0-2.0); EOS # 0.1 K/uL (0.0-0.7); EOS % 0.7 % (0.0-4.0); HEMOGLOBIN 12.8 g/dL (12.0-18.0); LYMPH # 0.8 K/uL (1.0-4.3); LYMPH % 7.5 % (20.0-40.0); MEAN CELL VOLUME 84.7 fl (80.0-94.0); MEAN CORPUSCULAR HEMOGLOBIN 28.2 pg (27.0-31.0); MEAN CORPUSCULAR HGB CONC 33.3 g/dL (33.0-37.0); MEAN PLATELET VOLUME 10.2 fl (7.2-11.7); MONO # 0.7 K/uL (0.0-0.8); MONO % 6.2 % (0.0-10.0); NEUT # 9.1 K/uL (1.8-7.0); NRBC % 0.1 % (0.0-0.0); PLATELET COUNT 157 K/uL (130-400); RBC 4.52 Mil/uL (4.40-5.90); RED CELL DISTRIBUTION WIDTH 15.7 % (11.5-14.5); WHITE BLOOD COUNT 10.7 K/uL (4.8-10.8)
[2018-01-13 22:06] LABS: SQUAMOUS EPITHIAL < 1 /hpf (0-5); URINE BACTERIA RARE (<OCC); URINE BILIRUBIN NEGATIVE (NEGATIVE); URINE BLOOD SMALL (NEGATIVE); URINE CLARITY CLEAR (Clear); URINE COLOR YELLOW (YELLOW); URINE GLUCOSE (UA) NEG (Normal); URINE LEUKOCYTE ESTERASE NEG Leu/uL (Negative); URINE PROTEIN NEGATIVE (NEGATIVE)
[2018-01-13 22:24] LABS: ALB/GLOB RATIO 1.2 (1.0-2.1); ALBUMIN 3.7 g/dL (3.5-5.0); ALT/SGPT 62 U/L (21-72); AST/SGOT 119 U/L (17-59); BLOOD UREA NITROGEN 25 mg/dl (9-20); CALCIUM 8.9 mg/dL (8.4-10.2); GFR AFRICAN-AMERICAN > 60; GFR NON-AFRICAN AMERICAN > 60
[2018-01-13 22:41] LABS: LIPASE 5581 U/L (23-300)
[2018-01-13] MEDS ORDERED: Sodium Chloride 0.9% 500 ML IV STA (22:47)
[2018-01-13] MEDS ORDERED: Piperacillin/Tazobact 3.375 GM in Sodium Chloride 0.9% 100 ML IV ONE (22:47)
[2018-01-13] MEDS ORDERED: Piperacillin/Tazobact 3.375 gm Inj IVPB ONE (22:50)
[2018-01-13 23:18] LABS: VENOUS BLOOD GAS BASE EXCESS 1.9 mmol/L (0.0-2.0); VENOUS BLOOD GAS PCO2 41 mmHg (40-60); VENOUS BLOOD GAS PO2 53 mm/Hg (30-55); VENOUS BLOOD PH 7.42 (7.32-7.43)
[2018-01-13 23:20] LABS: PARTIAL THROMBOPLASTIN TIME 31.2 Seconds (25.6-37.1); PROTHROMBIN TIME 11.5 Seconds (9.8-13.1)
[2018-01-13 23:45] LABS: ACANTHOCYTES SLIGHT; ANISOCYTOSIS SLIGHT; BANDS 1 % (0-2); HYPOCHROMIC SLIGHT; LYMPHOCYTE 9 % (20-50); MONOCYTE 3 % (0-10); NEUTROPHIL 87 % (42-75); PLATELET ESTIMATE NORMAL (NORMAL); TOTAL CELLS COUNTED 100
--- NOTE | 2018-01-14 00:19 | CP.PCM.CON ---
History of Present Illness - History of Present Illness History of Present Illness: General surgery consult note for Dr. Rikki Dee, PGY-2 Pt S & E at bedside at 2305. History as per pt, pt's son at bedside & EMR. 87M w/multiple medical co-morbidities (see below) consulted for epigastric pain x 4 hours. Pt reports sudden onset of severe/worsening epigastric pain that radiates to suprapubic area, constant since onset. Pt reports taking Ranitidine without alleviation. No inciting, alleviating or aggravating factors identified. Admits to headache, lower extremity pain (chronic). Denies N & V, F & C, constipation, diarrhea, anorexia, changes in urinary habits, other complaints. In ED - Ab U/S w/gallstones, trace pericholecystic fluid, GB wall thickened. Afebrile, no leukocytosis. Lipase 5581. T bili 1.0, AST 119, ALT 62 PMH: DM, HTN, HLD, gout, PVD, bradycardia, BPH, Parkinson's dementia, depression , chronic low back pain, gastritis, tricuspid aortic valve PSH: Hemorrhoidectomy, appendectomy, ventral hernia repair, angioplasty of lower extremities, PCI w/stents All: NKDA SH: Denies ETOH use, hx of tobacco use, denies illicit drug use PMD: Does not know name Review of Systems - Review of Systems Systems not reviewed;Unavailable: Dementia All systems: reviewed and no additional remarkable complaints except - Constitutional Constitutional: Headache - EENT Ears: absent: Dizziness Nose/Mouth/Throat: absent: Sore Throat - Cardiovascular Cardiovascular: Chest Pain (occasional) - Gastrointestinal Gastrointestinal: Abdominal Pain. absent: Change in Bowel Habits, Constipation , Diarrhea, Nausea, Vomiting - Genitourinary Genitourinary: absent: Change in Urinary Stream - Musculoskeletal Musculoskeletal: Back Pain (chronic) - Integumentary Integumentary: absent: New Lesions, Rash - Psychiatric Psychiatric: absent: Change in Appetite Past Patient History - Infectious Disease Hx of Infectious Diseases: None - Tetanus Immunizations Tetanus Immunization: Unknown - Past Medical History & Family History Past Medical History?: Yes - Past Social History Smoking Status: Former Smoker - CARDIAC Hx Congestive Heart Failure: No Hx Hypercholesterolemia: Yes Hx Hypertension: Yes - PULMONARY Hx Asthma: Yes Hx Chronic Obstructive Pulmonary Disease (COPD): No Hx Pneumonia: Yes - NEUROLOGICAL Hx Parkinson's Disease: Yes - HEENT Hx HEENT Problems: No - RENAL Hx Chronic Kidney Disease: No - ENDOCRINE/METABOLIC Hx Hypothyroidism: No - HEMATOLOGICAL/ONCOLOGICAL Hx Anemia: No Hx Human Immunodeficiency Virus (HIV): No - INTEGUMENTARY Hx Dermatological Problems: No - MUSCULOSKELETAL/RHEUMATOLOGICAL Hx Arthritis: Yes Hx Rheumatoid Arthritis: No - GASTROINTESTINAL Hx Gastrointestinal Disorders: No - GENITOURINARY/GYNECOLOGICAL Hx Genitourinary Disorders: Yes - PSYCHIATRIC Hx Depression: Yes - SURGICAL HISTORY Hx Appendectomy: Yes Hx Coronary Stent: Yes - ANESTHESIA Hx Anesthesia: Yes Hx Anesthesia Reactions: No Hx Malignant Hyperthermia: No Meds Allergies/Adverse Reactions: Allergies Allergy/AdvReac Type Severity Reaction Status Date / Time No Known Allergies Allergy Verified 11/05/17 20:34 - Medications Medications: Current Medications Lactated Ringer's (Lactated Ringer's) 1,000 mls @ 150 mls/hr IV .Q6H40M LUCIO Piperacillin Sod/Tazobactam (Sod 3.375 gm/ Sodium Chloride) 100 mls @ 100 mls/ hr IVPB Q6 LUCIO PRN Reason: Protocol Morphine Sulfate (Morphine) 2 mg IVP Q4 PRN PRN Reason: Pain, severe (8-10) Physical Exam - Constitutional Appears: Non-toxic, No Acute Distress - Head Exam Head Exam: ATRAUMATIC, NORMAL INSPECTION, NORMOCEPHALIC - Eye Exam Eye Exam: EOMI, Normal appearance. absent: Scleral icterus - ENT Exam ENT Exam: Mucous Membranes Moist, Normal Exam - Neck Exam Neck exam: Positive for: Full Rom, Normal Inspection - Respiratory Exam Respiratory Exam: Clear to Auscultation Bilateral, NORMAL BREATHING PATTERN. absent: Rales, Rhonchi, Wheezes, Respiratory Distress, Stridor - Cardiovascular Exam Cardiovascular Exam: REGULAR RHYTHM, +S1, +S2 - GI/Abdominal Exam GI & Abdominal Exam: Hernia (umbilical), Soft, Tenderness (epigastric, suprapubic). absent: Distended (obese), Firm, Guarding, Rebound, Rigid Additional comments: well healed RLQ vertical incision well healed suprapubic vertical incision - Extremities Exam Extremities exam: Positive for: normal inspection - Neurological Exam Neurological exam: Alert, CN II-XII Intact - Psychiatric Exam Psychiatric exam: Normal Affect, Normal Mood - Skin Skin Exam: Dry, Intact, Normal Color, Warm Results - Vital Signs Recent Vital Signs: Last Vital Signs Temp 97.9 F 01/13/18 23:46 Pulse 55 L 01/13/18 23:46 Resp 18 01/13/18 23:46 BP 139/90 01/13/18 23:46 Pulse Ox 94 L 01/14/18 00:15 - Labs Result Diagrams: 01/13/18 21:20 01/13/18 21:20 Labs: Laboratory Results - last 24 hr 01/13/18 01/13/18 01/13/18 21:20 21:20 21:20 WBC 10.7 D RBC 4.52 Hgb 12.8 Hct 38.3 MCV 84.7 MCH 28.2 MCHC 33.3 RDW 15.7 H Plt Count 157 MPV 10.2 Neut % (Auto) 85.0 H Lymph % (Auto) 7.5 L Sierra % (Auto) 6.2 Eos % (Auto) 0.7 Baso % (Auto) 0.6 Neut # (Auto) 9.1 H Lymph # (Auto) 0.8 L Sierra # (Auto) 0.7 Eos # (Auto) 0.1 Baso # (Auto) 0.1 Neutrophils % (Manual) 87 H Band Neutrophils % 1 Lymphocytes % (Manual) 9 L Monocytes % (Manual) 3 Platelet Estimate Normal Hypochromasia (manual) Slight Anisocytosis (manual) Slight Acanthocytes (Spur) Slight PT INR APTT pO2 VBG pH VBG pCO2 VBG HCO3 VBG Total CO2 VBG O2 Sat (Calc) VBG Base Excess VBG Potassium Glucose Lactate FiO2 Sodium 139 Potassium 4.1 Chloride 103 Carbon Dioxide 25 Anion Gap 15 BUN 25 H Creatinine 0.8 Est GFR ( Amer) > 60 Est GFR (Non-Af Amer) > 60 Random Glucose 122 H Calcium 8.9 Total Bilirubin 1.0 AST 119 H D ALT 62 Alkaline Phosphatase 69 Troponin I 0.0140 Total Protein 6.7 Albumin 3.7 Globulin 3.0 Albumin/Globulin Ratio 1.2 Lipase 5581 H Venous Blood Potassium Urine Color Yellow Urine Clarity Clear Urine pH 6.0 Ur Specific Sherman 1.017 Urine Protein Negative Urine Glucose (UA) Neg Urine Ketones Negative Urine Blood Small Urine Nitrate Negative Urine Bilirubin Negative Urine Urobilinogen 4.0 Ur Leukocyte Esterase Neg Urine RBC (Auto) 5 H Urine Microscopic WBC < 1 Ur Squamous Epith Cells < 1 Urine Bacteria Rare 01/13/18 01/13/18 23:08 23:13 WBC RBC Hgb Hct MCV MCH MCHC RDW Plt Count MPV Neut % (Auto) Lymph % (Auto) Sierra % (Auto) Eos % (Auto) Baso % (Auto) Neut # (Auto) Lymph # (Auto) Sierra # (Auto) Eos # (Auto) Baso # (Auto) Neutrophils % (Manual) Band Neutrophils % Lymphocytes % (Manual) Monocytes % (Manual) Platelet Estimate Hypochromasia (manual) Anisocytosis (manual) Acanthocytes (Spur) PT 11.5 INR 1.0 APTT 31.2 pO2 53 VBG pH 7.42 VBG pCO2 41 VBG HCO3 26.1 VBG Total CO2 27.9 VBG O2 Sat (Calc) 92.2 H VBG Base Excess 1.9 VBG Potassium 3.9 Glucose 130 H Lactate 1.4 FiO2 21.0 Sodium 136.0 Potassium Chloride 105.0 Carbon Dioxide Anion Gap BUN Creatinine Est GFR ( Amer) Est GFR (Non-Af Amer) Random Glucose Calcium Total Bilirubin AST ALT Alkaline Phosphatase Troponin I Total Protein Albumin Globulin Albumin/Globulin Ratio Lipase Venous Blood Potassium 3.9 Urine Color Urine Clarity Urine pH Ur Specific Sherman Urine Protein Urine Glucose (UA) Urine Ketones Urine Blood Urine Nitrate Urine Bilirubin Urine Urobilinogen Ur Leukocyte Esterase Urine RBC (Auto) Urine Microscopic WBC Ur Squamous Epith Cells Urine Bacteria Assessment & Plan - Assessment and Plan (Free Text) Assessment: 87M w/multiple medical co-morbidites consulted for gallstone pancreatitis and acute cholecystitis Plan: NPO IVF IV Abx Pain control Recommend GI consult FU AM Labs Monitor VS Further mgmt as per primary team LAURA attending Leila, PGY-2 - Date & Time Date: 01/14/18 Time: 23:30
[2018-01-14] MEDS: Lactated Ringer's 1,000 ML IV SCH ×4 (01:13→22:28)
[2018-01-14] MEDS: Piperacillin/Tazobact 3.375 GM in Sodium Chloride 0.9% 100 ML IVPB SCH ×4 (03:37→22:26)
--- NOTE | 2018-01-14 08:04 | CP.PCM.PN ---
Subjective - Date & Time of Evaluation Date of Evaluation: 01/14/18 Time of Evaluation: 08:00 - Subjective Subjective: General Surgery Dr. Vance Pt S&E @bedside. Pt reports RUQ/epigastric pain x4 days, however improved this AM. Pt denies N/V, F/C. NPO ex meds. Objective - Vital Signs/Intake and Output Vital Signs (last 24 hours): Temp Pulse Resp BP Pulse Ox 97.9 F 53 L 20 161/66 H 97 01/14/18 06:20 01/14/18 06:20 01/14/18 06:20 01/14/18 06:20 01/14/18 06:20 - Medications Medications: Current Medications Lactated Ringer's (Lactated Ringer's) 1,000 mls @ 150 mls/hr IV .Q6H40M [facility] Last Admin: 01/14/18 01:13 Dose: 150 mls/hr Piperacillin Sod/Tazobactam (Sod 3.375 gm/ Sodium Chloride) 100 mls @ 100 mls/ hr IVPB Q6 LUCIO PRN Reason: Protocol Last Admin: 01/14/18 03:37 Dose: 100 mls/hr Morphine Sulfate (Morphine) 2 mg IVP Q4 PRN PRN Reason: Pain, severe (8-10) Pantoprazole Sodium (Protonix Inj) 40 mg IVP DAILY [facility] - Labs Labs: 01/13/18 21:20 01/13/18 21:20 PT 11.5 Seconds (9.8-13.1) 01/13/18 23:08 INR 1.0 (0.9-1.2) 01/13/18 23:08 APTT 31.2 Seconds (25.6-37.1) 01/13/18 23:08 - Constitutional Appears: Non-toxic, No Acute Distress - Head Exam Head Exam: NORMAL INSPECTION - Eye Exam Eye Exam: Normal appearance - ENT Exam ENT Exam: Mucous Membranes Moist - Respiratory Exam Respiratory Exam: NORMAL BREATHING PATTERN. absent: Accessory Muscle Use, Respiratory Distress - Cardiovascular Exam Cardiovascular Exam: REGULAR RHYTHM. absent: Bradycardia, Tachycardia - GI/Abdominal Exam GI & Abdominal Exam: Soft, Tenderness (minimal TTP RUQ/epigastric). absent: Distended, Firm, Guarding, Rigid, Rebound - Extremities Exam Extremities Exam: Normal Inspection - Neurological Exam Neurological Exam: Alert, Awake - Psychiatric Exam Psychiatric exam: Normal Affect, Normal Mood - Skin Skin Exam: Dry, Intact, Normal Color, Warm Assessment and Plan - Assessment and Plan (Free Text) Assessment: 87 y/o M w/ RUQ abd pain 2/2 gallstone pancreatis - NPO/IVF - cont pain management - f/u PM labs - Cardiology consult for surgical clearance - f/u GI recs - encourage OOB to chair/Amb as tolerated - possible OR this admission pending cardiac/medical workup Pt discussed w/ Dr. Pinky Cerda DO PGY3
[2018-01-14 10:19] LABS: HEMOGLOBIN 12.3 g/dL (12.0-18.0); MEAN CELL VOLUME 85.3 fl (80.0-94.0); MEAN CORPUSCULAR HEMOGLOBIN 28.1 pg (27.0-31.0); RBC 4.37 Mil/uL (4.40-5.90); RED CELL DISTRIBUTION WIDTH 15.1 % (11.5-14.5)
[2018-01-14 10:36] LABS: ALB/GLOB RATIO 1.3 (1.0-2.1); ALBUMIN 3.5 g/dL (3.5-5.0); ALT/SGPT 92 U/L (21-72); AST/SGOT 118 U/L (17-59); BLOOD UREA NITROGEN 20 mg/dl (9-20); CALCIUM 8.5 mg/dL (8.4-10.2); GFR AFRICAN-AMERICAN > 60; GFR NON-AFRICAN AMERICAN > 60
--- NOTE | 2018-01-14 10:41 | RAD ---
Date of service: 01/13/2018 HISTORY: abd pain COMPARISON: Chest radiograph dated 01/30/2017. FINDINGS: LUNGS: Prominence of the pulmonary vasculature may be secondary to AP technique and/or pulmonary vascular congestion. No focal consolidation. PLEURA: No significant pleural effusion identified, no pneumothorax apparent. CARDIOVASCULAR: Atherosclerotic aortic calcifications. Cardiomediastinal silhouette stably enlarged. OSSEOUS STRUCTURES: Unchanged. VISUALIZED UPPER ABDOMEN: Normal. OTHER FINDINGS: None. IMPRESSION: Prominence of the pulmonary vasculature may be secondary to AP technique and/or pulmonary vascular congestion. No focal consolidation or pleural effusion.
--- NOTE | 2018-01-14 10:47 | US ---
Date of service: 01/13/2018 HISTORY: abd pain COMPARISON: None. TECHNIQUE: Sonographic evaluation of the right upper quadrant of the abdomen. FINDINGS: LIVER: Measures 15.1 cm in length. Normal echogenicity of the liver parenchyma. No mass. No intrahepatic bile duct dilatation. GALLBLADDER: Cholelithiasis with gallbladder wall thickening/ edema and trace pericholecystic fluid. Sonographic Van's sign was not elicited. COMMON BILE DUCT: Measures 7 mm. No stones. No dilatation. PANCREAS: Unremarkable as visualized. No mass. No ductal dilatation. RIGHT KIDNEY: Measures 11.9 x 5.1 x 4.5 cm in length. Normal echogenicity. No calculus, mass, or hydronephrosis. AORTA: No aneurysmal dilatation. IVC: Unremarkable. OTHER FINDINGS: None . IMPRESSION: Findings concerning for acute cholecystitis.
--- NOTE | 2018-01-14 11:03 | CP.PCM.CON ---
<Good Harvey - Last Filed: 01/14/18 11:58> History of Present Illness - History of Present Illness History of Present Illness: Initial PGY5 GI Consult Suman Keith is a 87M w/ hx of DM, HTN, dementia who presented to the ER with complaints of epigastric pain for 1 day. Pt was not able to effectively communicate, so most information was obtained from nursing and EMR. Pt reported sudden onset of epigastric pain that radiates to suprapubic area. It has been reportedly constant since onset. Pt reports taking Ranitidine without alleviation. He denied any aggravating or alleviating factors. An Ab U/S revealed gallstones, trace pericholecystic fluid, GB wall thickened. Afebrile, no leukocytosis. Lipase 5581. T bili 1.0, AST 119, ALT 62. Pt could not tell us if her had a similiar issues in the past. Pt received 500cc LR in the Er then a constant drip at 150ml/hr. Pt continues to have pain. PMH: DM, HTN, HLD, gout, PVD, bradycardia, BPH, Parkinson's dementia, depression , chronic low back pain, gastritis, tricuspid aortic valve PSH: Hemorrhoidectomy, appendectomy, ventral hernia repair, angioplasty of lower extremities, PCI w/stents All: NKDA SH: unknown ETOH use, hx of tobacco use, denies illicit drug use ROS: 12-point ROS conducted, neg other than above Past Patient History - Infectious Disease Hx of Infectious Diseases: None - Tetanus Immunizations Tetanus Immunization: Unknown - Past Medical History & Family History Past Medical History?: Yes - Past Social History Smoking Status: Former Smoker - CARDIAC Hx Congestive Heart Failure: No Hx Hypercholesterolemia: Yes Hx Hypertension: Yes - PULMONARY Hx Asthma: Yes Hx Chronic Obstructive Pulmonary Disease (COPD): No Hx Pneumonia: Yes - NEUROLOGICAL Hx Parkinson's Disease: Yes - HEENT Hx HEENT Problems: No - RENAL Hx Chronic Kidney Disease: No - ENDOCRINE/METABOLIC Hx Hypothyroidism: No - HEMATOLOGICAL/ONCOLOGICAL Hx Anemia: No Hx Human Immunodeficiency Virus (HIV): No - INTEGUMENTARY Hx Dermatological Problems: No - MUSCULOSKELETAL/RHEUMATOLOGICAL Hx Arthritis: Yes Hx Falls: No Hx Rheumatoid Arthritis: No - GASTROINTESTINAL Hx Gastrointestinal Disorders: No - GENITOURINARY/GYNECOLOGICAL Hx Genitourinary Disorders: Yes - PSYCHIATRIC Hx Depression: Yes Hx Substance Use: No - SURGICAL HISTORY Hx Appendectomy: Yes Hx Coronary Stent: Yes - ANESTHESIA Hx Anesthesia: Yes Hx Anesthesia Reactions: No Hx Malignant Hyperthermia: No Meds Allergies/Adverse Reactions: Allergies Allergy/AdvReac Type Severity Reaction Status Date / Time No Known Allergies Allergy Verified 11/05/17 20:34 - Medications Medications: Current Medications Lactated Ringer's (Lactated Ringer's) 1,000 mls @ 150 mls/hr IV .Q6H40M [facility] Last Admin: 01/14/18 09:29 Dose: 150 mls/hr Piperacillin Sod/Tazobactam (Sod 3.375 gm/ Sodium Chloride) 100 mls @ 100 mls/ hr IVPB Q6 [facility] PRN Reason: Protocol Last Admin: 01/14/18 09:31 Dose: 100 mls/hr Morphine Sulfate (Morphine) 2 mg IVP Q4 PRN PRN Reason: Pain, severe (8-10) Pantoprazole Sodium (Protonix Inj) 40 mg IVP DAILY [facility] Last Admin: 01/14/18 09:32 Dose: 40 mg Valsartan (Diovan) 80 mg PO DAILY [facility] Last Admin: 01/14/18 10:26 Dose: 80 mg Physical Exam - Constitutional Appears: Well, In Acute Distress, Confused, Chronically Ill - Head Exam Head Exam: ATRAUMATIC, NORMOCEPHALIC - Eye Exam Eye Exam: Normal appearance Pupil Exam: NORMAL ACCOMODATION - ENT Exam ENT Exam: Mucous Membranes Moist, Normal Exam - Neck Exam Neck exam: Positive for: Normal Inspection - Respiratory Exam Respiratory Exam: Clear to Auscultation Bilateral, NORMAL BREATHING PATTERN. absent: Rales, Rhonchi, Wheezes, Respiratory Distress - Cardiovascular Exam Cardiovascular Exam: REGULAR RHYTHM, +S1, +S2 - GI/Abdominal Exam GI & Abdominal Exam: Normal Bowel Sounds, Soft, Tenderness (epugastrum). absent : Distended, Firm, Guarding, Organomegaly, Pulsatile Mass, Rebound, Rigid - Extremities Exam Extremities exam: Negative for: joint swelling, pedal edema - Neurological Exam Neurological exam: Altered - Psychiatric Exam Psychiatric exam: Normal Affect, Normal Mood - Skin Skin Exam: Dry, Intact, Normal Color, Warm Results - Vital Signs Recent Vital Signs: Last Vital Signs Temp 98.3 F 01/14/18 08:01 Pulse 78 01/14/18 09:59 Resp 19 01/14/18 09:59 BP 153/57 H 01/14/18 09:59 Pulse Ox 98 01/14/18 09:59 - Labs Result Diagrams: 01/14/18 10:13 01/14/18 10:13 Labs: Laboratory Results - last 24 hr 01/13/18 01/13/18 01/13/18 21:20 21:20 21:20 WBC 10.7 D RBC 4.52 Hgb 12.8 Hct 38.3 MCV 84.7 MCH 28.2 MCHC 33.3 RDW 15.7 H Plt Count 157 MPV 10.2 Neut % (Auto) 85.0 H Lymph % (Auto) 7.5 L [place] % (Auto) 6.2 Eos % (Auto) 0.7 Baso % (Auto) 0.6 Neut # (Auto) 9.1 H Lymph # (Auto) 0.8 L [place] # (Auto) 0.7 Eos # (Auto) 0.1 Baso # (Auto) 0.1 Neutrophils % (Manual) 87 H Band Neutrophils % 1 Lymphocytes % (Manual) 9 L Monocytes % (Manual) 3 Platelet Estimate Normal Hypochromasia (manual) Slight Anisocytosis (manual) Slight Acanthocytes (Spur) Slight PT INR APTT pO2 VBG pH VBG pCO2 VBG HCO3 VBG Total CO2 VBG O2 Sat (Calc) VBG Base Excess VBG Potassium Glucose Lactate FiO2 Sodium 139 Potassium 4.1 Chloride 103 Carbon Dioxide 25 Anion Gap 15 BUN 25 H Creatinine 0.8 Est GFR ( Amer) > 60 Est GFR (Non-Af Amer) > 60 Random Glucose 122 H Calcium 8.9 Phosphorus Magnesium Total Bilirubin 1.0 AST 119 H D ALT 62 Alkaline Phosphatase 69 Troponin I 0.0140 Total Protein 6.7 Albumin 3.7 Globulin 3.0 Albumin/Globulin Ratio 1.2 Lipase 5581 H Venous Blood Potassium Urine Color Yellow Urine Clarity Clear Urine pH 6.0 Ur Specific [place] 1.017 Urine Protein Negative Urine Glucose (UA) Neg Urine Ketones Negative Urine Blood Small Urine Nitrate Negative Urine Bilirubin Negative Urine Urobilinogen 4.0 Ur Leukocyte Esterase Neg Urine RBC (Auto) 5 H Urine Microscopic WBC < 1 Ur Squamous Epith Cells < 1 Urine Bacteria Rare 01/13/18 01/13/18 01/14/18 23:08 23:13 10:13 WBC 7.0 RBC 4.37 L Hgb 12.3 Hct 37.3 MCV 85.3 MCH 28.1 MCHC 33.0 RDW 15.1 H Plt Count 149 MPV Neut % (Auto) Lymph % (Auto) [place] % (Auto) Eos % (Auto) Baso % (Auto) Neut # (Auto) Lymph # (Auto) [place] # (Auto) Eos # (Auto) Baso # (Auto) Neutrophils % (Manual) Band Neutrophils % Lymphocytes % (Manual) Monocytes % (Manual) Platelet Estimate Hypochromasia (manual) Anisocytosis (manual) Acanthocytes (Spur) PT 11.5 INR 1.0 APTT 31.2 pO2 53 VBG pH 7.42 VBG pCO2 41 VBG HCO3 26.1 VBG Total CO2 27.9 VBG O2 Sat (Calc) 92.2 H VBG Base Excess 1.9 VBG Potassium 3.9 Glucose 130 H Lactate 1.4 FiO2 21.0 Sodium 136.0 Potassium Chloride 105.0 Carbon Dioxide Anion Gap BUN Creatinine Est GFR ( Amer) Est GFR (Non-Af Amer) Random Glucose Calcium Phosphorus Magnesium Total Bilirubin AST ALT Alkaline Phosphatase Troponin I Total Protein Albumin Globulin Albumin/Globulin Ratio Lipase Venous Blood Potassium 3.9 Urine Color Urine Clarity Urine pH Ur Specific [place] Urine Protein Urine Glucose (UA) Urine Ketones Urine Blood Urine Nitrate Urine Bilirubin Urine Urobilinogen Ur Leukocyte Esterase Urine RBC (Auto) Urine Microscopic WBC Ur Squamous Epith Cells Urine Bacteria 01/14/18 10:13 WBC RBC Hgb Hct MCV MCH MCHC RDW Plt Count MPV Neut % (Auto) Lymph % (Auto) [place] % (Auto) Eos % (Auto) Baso % (Auto) Neut # (Auto) Lymph # (Auto) [place] # (Auto) Eos # (Auto) Baso # (Auto) Neutrophils % (Manual) Band Neutrophils % Lymphocytes % (Manual) Monocytes % (Manual) Platelet Estimate Hypochromasia (manual) Anisocytosis (manual) Acanthocytes (Spur) PT INR APTT pO2 VBG pH VBG pCO2 VBG HCO3 VBG Total CO2 VBG O2 Sat (Calc) VBG Base Excess VBG Potassium Glucose Lactate FiO2 Sodium 141 Potassium 4.2 Chloride 107 Carbon Dioxide 28 Anion Gap 10 BUN 20 Creatinine 0.8 Est GFR ( Amer) > 60 Est GFR (Non-Af Amer) > 60 Random Glucose 108 Calcium 8.5 Phosphorus 2.9 Magnesium 2.0 Total Bilirubin 1.7 H AST 118 H ALT 92 H D Alkaline Phosphatase 82 Troponin I Total Protein 6.3 Albumin 3.5 Globulin 2.8 Albumin/Globulin Ratio 1.3 Lipase Venous Blood Potassium Urine Color Urine Clarity Urine pH Ur Specific [place] Urine Protein Urine Glucose (UA) Urine Ketones Urine Blood Urine Nitrate Urine Bilirubin Urine Urobilinogen Ur Leukocyte Esterase Urine RBC (Auto) Urine Microscopic WBC Ur Squamous Epith Cells Urine Bacteria Assessment & Plan - Assessment and Plan (Free Text) Assessment: Suman Keith is a 87M w/ sig PMHx who presents to the Er 2/2 abd pain Acute pancreatitis, etiology likely 2/2 gallstone, cannot rule ETOH Abd pain 2/2 above Cholelithiasis Elevated LFTs, pattern suggestive of ETOH consumption Plan: -continue LR @ 150ml/hr -CT abd w/ IV contrast -Keep NPO -will get TG levels -need better hx from family -surgery on board, may go to [place] -abx as per primary team -pain management as per primary D/w Dr. Norman <Kristina Norman - Last Filed: 01/14/18 13:00> Meds - Medications Medications: Current Medications Amlodipine Besylate (Norvasc) 5 mg PO DAILY [facility] Piperacillin Sod/Tazobactam (Sod 3.375 gm/ Sodium Chloride) 100 mls @ 100 mls/ hr IVPB Q6 [facility] PRN Reason: Protocol Last Admin: 01/14/18 09:31 Dose: 100 mls/hr Lactated Ringer's (Lactated Ringer's) 1,000 mls @ 100 mls/hr IV .Q10H [facility] Morphine Sulfate (Morphine) 2 mg IVP Q4 PRN PRN Reason: Pain, severe (8-10) Pantoprazole Sodium (Protonix Inj) 40 mg IVP DAILY [facility] Last Admin: 01/14/18 09:32 Dose: 40 mg Valsartan (Diovan) 160 mg PO DAILY [facility] Results - Vital Signs Recent Vital Signs: Last Vital Signs Temp 98.3 F 01/14/18 08:01 Pulse 78 01/14/18 09:59 Resp 19 01/14/18 09:59 BP 153/57 H 01/14/18 09:59 Pulse Ox 98 01/14/18 09:59 - Labs Result Diagrams: 01/14/18 10:13 01/14/18 10:13 Labs: Laboratory Results - last 24 hr 01/13/18 01/13/18 01/13/18 21:20 21:20 21:20 WBC 10.7 D RBC 4.52 Hgb 12.8 Hct 38.3 MCV 84.7 MCH 28.2 MCHC 33.3 RDW 15.7 H Plt Count 157 MPV 10.2 Neut % (Auto) 85.0 H Lymph % (Auto) 7.5 L [place] % (Auto) 6.2 Eos % (Auto) 0.7 Baso % (Auto) 0.6 Neut # (Auto) 9.1 H Lymph # (Auto) 0.8 L [place] # (Auto) 0.7 Eos # (Auto) 0.1 Baso # (Auto) 0.1 Neutrophils % (Manual) 87 H Band Neutrophils % 1 Lymphocytes % (Manual) 9 L Monocytes % (Manual) 3 Platelet Estimate Normal Hypochromasia (manual) Slight Anisocytosis (manual) Slight Acanthocytes (Spur) Slight PT INR APTT pO2 VBG pH VBG pCO2 VBG HCO3 VBG Total CO2 VBG O2 Sat (Calc) VBG Base Excess VBG Potassium Glucose Lactate FiO2 Sodium 139 Potassium 4.1 Chloride 103 Carbon Dioxide 25 Anion Gap 15 BUN 25 H Creatinine 0.8 Est GFR ( Amer) > 60 Est GFR (Non-Af Amer) > 60 Random Glucose 122 H Calcium 8.9 Phosphorus Magnesium Total Bilirubin 1.0 AST 119 H D ALT 62 Alkaline Phosphatase 69 Troponin I 0.0140 Total Protein 6.7 Albumin 3.7 Globulin 3.0 Albumin/Globulin Ratio 1.2 Lipase 5581 H Venous Blood Potassium Urine Color Yellow Urine Clarity Clear Urine pH 6.0 Ur Specific [place] 1.017 Urine Protein Negative Urine Glucose (UA) Neg Urine Ketones Negative Urine Blood Small Urine Nitrate Negative Urine Bilirubin Negative Urine Urobilinogen 4.0 Ur Leukocyte Esterase Neg Urine RBC (Auto) 5 H Urine Microscopic WBC < 1 Ur Squamous Epith Cells < 1 Urine Bacteria Rare 01/13/18 01/13/18 01/14/18 23:08 23:13 10:13 WBC 7.0 RBC 4.37 L Hgb 12.3 Hct 37.3 MCV 85.3 MCH 28.1 MCHC 33.0 RDW 15.1 H Plt Count 149 MPV Neut % (Auto) Lymph % (Auto) [place] % (Auto) Eos % (Auto) Baso % (Auto) Neut # (Auto) Lymph # (Auto) [place] # (Auto) Eos # (Auto) Baso # (Auto) Neutrophils % (Manual) Band Neutrophils % Lymphocytes % (Manual) Monocytes % (Manual) Platelet Estimate Hypochromasia (manual) Anisocytosis (manual) Acanthocytes (Spur) PT 11.5 INR 1.0 APTT 31.2 pO2 53 VBG pH 7.42 VBG pCO2 41 VBG HCO3 26.1 VBG Total CO2 27.9 VBG O2 Sat (Calc) 92.2 H VBG Base Excess 1.9 VBG Potassium 3.9 Glucose 130 H Lactate 1.4 FiO2 21.0 Sodium 136.0 Potassium Chloride 105.0 Carbon Dioxide Anion Gap BUN Creatinine Est GFR ( Amer) Est GFR (Non-Af Amer) Random Glucose Calcium Phosphorus Magnesium Total Bilirubin AST ALT Alkaline Phosphatase Troponin I Total Protein Albumin Globulin Albumin/Globulin Ratio Lipase Venous Blood Potassium 3.9 Urine Color Urine Clarity Urine pH Ur Specific [place] Urine Protein Urine Glucose (UA) Urine Ketones Urine Blood Urine Nitrate Urine Bilirubin Urine Urobilinogen Ur Leukocyte Esterase Urine RBC (Auto) Urine Microscopic WBC Ur Squamous Epith Cells Urine Bacteria 01/14/18 10:13 WBC RBC Hgb Hct MCV MCH MCHC RDW Plt Count MPV Neut % (Auto) Lymph % (Auto) [place] % (Auto) Eos % (Auto) Baso % (Auto) Neut # (Auto) Lymph # (Auto) [place] # (Auto) Eos # (Auto) Baso # (Auto) Neutrophils % (Manual) Band Neutrophils % Lymphocytes % (Manual) Monocytes % (Manual) Platelet Estimate Hypochromasia (manual) Anisocytosis (manual) Acanthocytes (Spur) PT INR APTT pO2 VBG pH VBG pCO2 VBG HCO3 VBG Total CO2 VBG O2 Sat (Calc) VBG Base Excess VBG Potassium Glucose Lactate FiO2 Sodium 141 Potassium 4.2 Chloride 107 Carbon Dioxide 28 Anion Gap 10 BUN 20 Creatinine 0.8 Est GFR ( Amer) > 60 Est GFR (Non-Af Amer) > 60 Random Glucose 108 Calcium 8.5 Phosphorus 2.9 Magnesium 2.0 Total Bilirubin 1.7 H AST 118 H ALT 92 H D Alkaline Phosphatase 82 Troponin I Total Protein 6.3 Albumin 3.5 Globulin 2.8 Albumin/Globulin Ratio 1.3 Lipase Venous Blood Potassium Urine Color Urine Clarity Urine pH Ur Specific [place] Urine Protein Urine Glucose (UA) Urine Ketones Urine Blood Urine Nitrate Urine Bilirubin Urine Urobilinogen Ur Leukocyte Esterase Urine RBC (Auto) Urine Microscopic WBC Ur Squamous Epith Cells Urine Bacteria Attending/Attestation - Attestation I have personally seen and examined this patient.: Yes I have fully participated in the care of the patient.: Yes I have reviewed all pertinent clinical information: Yes Notes (Text): 01/14/18 12:57 This is a 87 year old M with significant PMHx who presents to the ER secondary to acute pancreatitis likely gallstone etiology. AST three times of upper limit. Questionable alcohol intake. Continue IVf as per cardac status. TG levels pending. NPO for now. Close clinical watch
--- NOTE | 2018-01-14 14:08 | CP.PCM.HP ---
<Kanchan Coats - Last Filed: 01/14/18 15:21> History of Present Illness - History of Present Illness History of Present Illness: 87 yo M with PMH DM2, HLD, gout, BPH, Parkinson's, gastritis admitted to medsurg floor for acute cholecystitis and cholelithiasis. He presented to ED c/ o sevre and worsening epigastric pain that did not resolve when he took ranitidine. He denied GI upset, constipation, diarrhea, dysuria. In ED: Afebrile, no leukocytosis. Adominal u/s: gallstones, trace pericholecystic fluid, GB wall thickened. Lipase 5581. T bili 1.0, AST 119, ALT 62 Past Surg Hx: Hemorrhoidectomy, appendectomy, hernia repair, angioplasty of lower extremities, PCI w/stents Social Hx: Denies ETOH use, hx of tobacco use, denies illicit drug use Fam hx: noncontributory Allergies: NKDA Seen this morning on rounds; no acute events since admission. No chest pain or SOB. Present on Admission - Present on Admission Any Indicators Present on Admission: No Review of Systems - Review of Systems All systems: reviewed and no additional remarkable complaints except (as per HPI ) Past Patient History - Infectious Disease Hx of Infectious Diseases: None - Tetanus Immunizations Tetanus Immunization: Unknown - Past Medical History & Family History Past Medical History?: Yes - Past Social History Smoking Status: Former Smoker - CARDIAC Hx Congestive Heart Failure: No Hx Hypercholesterolemia: Yes Hx Hypertension: Yes - PULMONARY Hx Asthma: Yes Hx Chronic Obstructive Pulmonary Disease (COPD): No Hx Pneumonia: Yes - NEUROLOGICAL Hx Parkinson's Disease: Yes - HEENT Hx HEENT Problems: No - RENAL Hx Chronic Kidney Disease: No - ENDOCRINE/METABOLIC Hx Hypothyroidism: No - HEMATOLOGICAL/ONCOLOGICAL Hx Anemia: No Hx Human Immunodeficiency Virus (HIV): No - INTEGUMENTARY Hx Dermatological Problems: No - MUSCULOSKELETAL/RHEUMATOLOGICAL Hx Arthritis: Yes Hx Falls: No Hx Rheumatoid Arthritis: No - GASTROINTESTINAL Hx Gastrointestinal Disorders: No - GENITOURINARY/GYNECOLOGICAL Hx Genitourinary Disorders: Yes - PSYCHIATRIC Hx Depression: Yes Hx Substance Use: No - SURGICAL HISTORY Hx Appendectomy: Yes Hx Coronary Stent: Yes - ANESTHESIA Hx Anesthesia: Yes Hx Anesthesia Reactions: No Hx Malignant Hyperthermia: No Meds Allergies/Adverse Reactions: Allergies Allergy/AdvReac Type Severity Reaction Status Date / Time No Known Allergies Allergy Verified 11/05/17 20:34 Physical Exam - Constitutional Additional comments: appears uncomfortable - Respiratory Exam Respiratory Exam: NORMAL BREATHING PATTERN. absent: Respiratory Distress - Cardiovascular Exam Cardiovascular Exam: REGULAR RHYTHM - GI/Abdominal Exam GI & Abdominal Exam: Soft, Tenderness (epigastric, RUQ) - Extremities Exam Extremities exam: Negative for: calf tenderness - Neurological Exam Neurological exam: Alert - Skin Skin Exam: Warm Results - Vital Signs Recent Vital Signs: Last Vital Signs Temp 98.3 F 01/14/18 08:01 Pulse 78 01/14/18 09:59 Resp 19 01/14/18 09:59 BP 153/57 H 01/14/18 09:59 Pulse Ox 98 01/14/18 09:59 - Labs Result Diagrams: 01/14/18 10:13 01/14/18 10:13 Labs: Laboratory Results - last 24 hr 01/13/18 01/13/18 01/13/18 21:20 21:20 21:20 WBC 10.7 D RBC 4.52 Hgb 12.8 Hct 38.3 MCV 84.7 MCH 28.2 MCHC 33.3 RDW 15.7 H Plt Count 157 MPV 10.2 Neut % (Auto) 85.0 H Lymph % (Auto) 7.5 L [place] % (Auto) 6.2 Eos % (Auto) 0.7 Baso % (Auto) 0.6 Neut # (Auto) 9.1 H Lymph # (Auto) 0.8 L [place] # (Auto) 0.7 Eos # (Auto) 0.1 Baso # (Auto) 0.1 Neutrophils % (Manual) 87 H Band Neutrophils % 1 Lymphocytes % (Manual) 9 L Monocytes % (Manual) 3 Platelet Estimate Normal Hypochromasia (manual) Slight Anisocytosis (manual) Slight Acanthocytes (Spur) Slight PT INR APTT pO2 VBG pH VBG pCO2 VBG HCO3 VBG Total CO2 VBG O2 Sat (Calc) VBG Base Excess VBG Potassium Glucose Lactate FiO2 Sodium 139 Potassium 4.1 Chloride 103 Carbon Dioxide 25 Anion Gap 15 BUN 25 H Creatinine 0.8 Est GFR ( Amer) > 60 Est GFR (Non-Af Amer) > 60 Random Glucose 122 H Calcium 8.9 Phosphorus Magnesium Total Bilirubin 1.0 AST 119 H D ALT 62 Alkaline Phosphatase 69 Troponin I 0.0140 Total Protein 6.7 Albumin 3.7 Globulin 3.0 Albumin/Globulin Ratio 1.2 Lipase 5581 H Venous Blood Potassium Urine Color Yellow Urine Clarity Clear Urine pH 6.0 Ur Specific [place] 1.017 Urine Protein Negative Urine Glucose (UA) Neg Urine Ketones Negative Urine Blood Small Urine Nitrate Negative Urine Bilirubin Negative Urine Urobilinogen 4.0 Ur Leukocyte Esterase Neg Urine RBC (Auto) 5 H Urine Microscopic WBC < 1 Ur Squamous Epith Cells < 1 Urine Bacteria Rare 01/13/18 01/13/18 01/14/18 23:08 23:13 10:13 WBC 7.0 RBC 4.37 L Hgb 12.3 Hct 37.3 MCV 85.3 MCH 28.1 MCHC 33.0 RDW 15.1 H Plt Count 149 MPV Neut % (Auto) Lymph % (Auto) [place] % (Auto) Eos % (Auto) Baso % (Auto) Neut # (Auto) Lymph # (Auto) [place] # (Auto) Eos # (Auto) Baso # (Auto) Neutrophils % (Manual) Band Neutrophils % Lymphocytes % (Manual) Monocytes % (Manual) Platelet Estimate Hypochromasia (manual) Anisocytosis (manual) Acanthocytes (Spur) PT 11.5 INR 1.0 APTT 31.2 pO2 53 VBG pH 7.42 VBG pCO2 41 VBG HCO3 26.1 VBG Total CO2 27.9 VBG O2 Sat (Calc) 92.2 H VBG Base Excess 1.9 VBG Potassium 3.9 Glucose 130 H Lactate 1.4 FiO2 21.0 Sodium 136.0 Potassium Chloride 105.0 Carbon Dioxide Anion Gap BUN Creatinine Est GFR ( Amer) Est GFR (Non-Af Amer) Random Glucose Calcium Phosphorus Magnesium Total Bilirubin AST ALT Alkaline Phosphatase Troponin I Total Protein Albumin Globulin Albumin/Globulin Ratio Lipase Venous Blood Potassium 3.9 Urine Color Urine Clarity Urine pH Ur Specific [place] Urine Protein Urine Glucose (UA) Urine Ketones Urine Blood Urine Nitrate Urine Bilirubin Urine Urobilinogen Ur Leukocyte Esterase Urine RBC (Auto) Urine Microscopic WBC Ur Squamous Epith Cells Urine Bacteria 01/14/18 10:13 WBC RBC Hgb Hct MCV MCH MCHC RDW Plt Count MPV Neut % (Auto) Lymph % (Auto) [place] % (Auto) Eos % (Auto) Baso % (Auto) Neut # (Auto) Lymph # (Auto) [place] # (Auto) Eos # (Auto) Baso # (Auto) Neutrophils % (Manual) Band Neutrophils % Lymphocytes % (Manual) Monocytes % (Manual) Platelet Estimate Hypochromasia (manual) Anisocytosis (manual) Acanthocytes (Spur) PT INR APTT pO2 VBG pH VBG pCO2 VBG HCO3 VBG Total CO2 VBG O2 Sat (Calc) VBG Base Excess VBG Potassium Glucose Lactate FiO2 Sodium 141 Potassium 4.2 Chloride 107 Carbon Dioxide 28 Anion Gap 10 BUN 20 Creatinine 0.8 Est GFR ( Amer) > 60 Est GFR (Non-Af Amer) > 60 Random Glucose 108 Calcium 8.5 Phosphorus 2.9 Magnesium 2.0 Total Bilirubin 1.7 H AST 118 H ALT 92 H D Alkaline Phosphatase 82 Troponin I Total Protein 6.3 Albumin 3.5 Globulin 2.8 Albumin/Globulin Ratio 1.3 Lipase Venous Blood Potassium Urine Color Urine Clarity Urine pH Ur Specific [place] Urine Protein Urine Glucose (UA) Urine Ketones Urine Blood Urine Nitrate Urine Bilirubin Urine Urobilinogen Ur Leukocyte Esterase Urine RBC (Auto) Urine Microscopic WBC Ur Squamous Epith Cells Urine Bacteria Assessment & Plan (1) Acute cholecystitis Status: Acute (2) Cholelithiasis Status: Chronic (3) Diabetes Status: Chronic - Assessment and Plan (Free Text) Plan: - [facility] - NPO, IVF - Pain control - Consult - surgery, GI, cardio (clearance if surg) - pending CT abdomen, MRCP, echo - f/u CBC, CMP tomorrow - SCD <Cliff Smith - Last Filed: 01/15/18 07:53> Results - Vital Signs Recent Vital Signs: Last Vital Signs Temp 97.9 F 01/15/18 01:08 Pulse 60 01/15/18 01:08 Resp 20 01/15/18 01:08 BP 117/55 L 01/15/18 01:08 Pulse Ox 95 01/15/18 01:08 - Labs Result Diagrams: 01/15/18 05:30 01/15/18 05:30 Labs: Laboratory Results - last 24 hr 01/14/18 01/14/18 01/14/18 10:13 10:13 14:28 WBC 7.0 RBC 4.37 L Hgb 12.3 Hct 37.3 MCV 85.3 MCH 28.1 MCHC 33.0 RDW 15.1 H Plt Count 149 MPV Neut % (Auto) Lymph % (Auto) [place] % (Auto) Eos % (Auto) Baso % (Auto) Neut # (Auto) Lymph # (Auto) [place] # (Auto) Eos # (Auto) Baso # (Auto) Sodium 141 Potassium 4.2 Chloride 107 Carbon Dioxide 28 Anion Gap 10 BUN 20 Creatinine 0.8 Est GFR ( Amer) > 60 Est GFR (Non-Af Amer) > 60 Random Glucose 108 Calcium 8.5 Phosphorus 2.9 Magnesium 2.0 Total Bilirubin 1.7 H AST 118 H ALT 92 H D Alkaline Phosphatase 82 Total Protein 6.3 Albumin 3.5 Globulin 2.8 Albumin/Globulin Ratio 1.3 Triglycerides 81 D 01/15/18 01/15/18 05:30 05:30 WBC 4.6 L RBC 4.49 Hgb 12.6 Hct 38.3 MCV 85.3 MCH 28.0 MCHC 32.8 L RDW 15.1 H Plt Count 142 MPV 10.5 Neut % (Auto) 61.1 Lymph % (Auto) 23.1 [place] % (Auto) 11.4 H Eos % (Auto) 3.1 Baso % (Auto) 1.3 Neut # (Auto) 2.8 Lymph # (Auto) 1.1 [place] # (Auto) 0.5 Eos # (Auto) 0.1 Baso # (Auto) 0.1 Sodium 140 Potassium 3.9 Chloride 105 Carbon Dioxide 24 Anion Gap 15 BUN 14 Creatinine 0.9 Est GFR ( Amer) > 60 Est GFR (Non-Af Amer) > 60 Random Glucose 97 Calcium 8.7 Phosphorus Magnesium Total Bilirubin 1.4 H AST 79 H D ALT 87 H Alkaline Phosphatase 83 Total Protein 6.5 Albumin 3.5 Globulin 3.0 Albumin/Globulin Ratio 1.2 Triglycerides Assessment & Plan - Assessment and Plan (Free Text) Plan: I was present during evaluation and discussed with Dr Jorge L good plans of care and tx, Surgical consult. Patient is medically stable for surgery pending cardiac clearance. Cliff Smith M.D.
[2018-01-14] MEDS ORDERED: Iohexol 240 (50 ml) PO ONE (14:11)
[2018-01-14] MEDS ORDERED: Iohexol 300 100 ML IJ ONE (16:53)
[2018-01-14] MEDS ORDERED: Sodium Chloride 0.9% 100 ML ONE (16:54)
[2018-01-14] MEDS ORDERED: Sodium Chloride 0.9% 50 ML IV ONE (18:00)
--- NOTE | 2018-01-14 18:43 | CT ---
Date of service: 01/14/2018 PROCEDURE: CT Abdomen and Pelvis with contrast HISTORY: pancreatitis COMPARISON: None. TECHNIQUE: Contrast dose: 95 mL Omnipaque 300 Radiation dose: Total exam DLP = 852.4 mGy-cm. This CT exam was performed using one or more of the following dose reduction techniques: Automated exposure control, adjustment of the mA and/or kV according to patient size, and/or use of iterative reconstruction technique. FINDINGS: LOWER THORAX: Right middle lobe scarring. No focal consolidation or pleural effusion. Cardiomegaly. LIVER: Unremarkable. No gross lesion or ductal dilatation. GALLBLADDER AND BILE DUCTS: Distended gallbladder with wall thickening/edema. PANCREAS: Atrophy. No gross lesion or ductal dilatation. No significant peripancreatic stranding. SPLEEN: Unremarkable. ADRENALS: Unremarkable. No mass. KIDNEYS AND URETERS: Right renal cortical scarring. No hydronephrosis. No solid mass. VASCULATURE: Unremarkable. No aortic aneurysm. BOWEL: Unremarkable. No obstruction. No gross mural thickening. APPENDIX: No findings to suggest acute appendicitis. PERITONEUM: Unremarkable. No free fluid. No free air. LYMPH NODES: Unremarkable. No enlarged lymph nodes. BLADDER: Unremarkable. REPRODUCTIVE: Unremarkable. BONES: No acute fracture. Degenerative changes. OTHER FINDINGS: None. IMPRESSION: Distended gallbladder with cholelithiasis and wall thickening/ edema concerning for acute cholecystitis. No significant pancreatic edema or peripancreatic stranding to suggest acute pancreatitis. Additional stable findings as above.
[2018-01-15] MEDS: Piperacillin/Tazobact 3.375 GM in Sodium Chloride 0.9% 100 ML IVPB SCH ×4 (03:14→21:25)
--- NOTE | 2018-01-15 07:09 | CP.PCM.PN ---
Subjective - Date & Time of Evaluation Date of Evaluation: 01/15/18 Time of Evaluation: 07:08 - Subjective Subjective: General surgery - Dr. Vance Pt S&E. CATHY. Pt reports his pain is significantly improved. He feels his abdomen was distended and painful before and now it is soft and pain has improved. He denies any Nausea/Vomiting, Fevers/Chills, SOB/Chest pain. Objective - Vital Signs/Intake and Output Vital Signs (last 24 hours): Temp Pulse Resp BP Pulse Ox 97.9 F 60 20 117/55 L 95 01/15/18 01:08 01/15/18 01:08 01/15/18 01:08 01/15/18 01:08 01/15/18 01:08 - Medications Medications: Current Medications Amlodipine Besylate (Norvasc) 5 mg PO DAILY [facility] Last Admin: 01/14/18 14:41 Dose: 5 mg Piperacillin Sod/Tazobactam (Sod 3.375 gm/ Sodium Chloride) 100 mls @ 100 mls/ hr IVPB Q6 LUCIO PRN Reason: Protocol Last Admin: 01/15/18 03:14 Dose: 100 mls/hr Lactated Ringer's (Lactated Ringer's) 1,000 mls @ 100 mls/hr IV .Q10H [facility] Last Admin: 01/14/18 22:28 Dose: 100 mls/hr Morphine Sulfate (Morphine) 2 mg IVP Q4 PRN PRN Reason: Pain, severe (8-10) Pantoprazole Sodium (Protonix Inj) 40 mg IVP DAILY [facility] Last Admin: 01/14/18 09:32 Dose: 40 mg Valsartan (Diovan) 160 mg PO DAILY [facility] - Labs Labs: 01/14/18 10:13 01/14/18 10:13 PT 11.5 Seconds (9.8-13.1) 01/13/18 23:08 INR 1.0 (0.9-1.2) 01/13/18 23:08 APTT 31.2 Seconds (25.6-37.1) 01/13/18 23:08 - Constitutional Appears: No Acute Distress - Head Exam Head Exam: ATRAUMATIC, NORMAL INSPECTION, NORMOCEPHALIC - Eye Exam Eye Exam: Normal appearance - Respiratory Exam Respiratory Exam: NORMAL BREATHING PATTERN. absent: Respiratory Distress - Cardiovascular Exam Cardiovascular Exam: REGULAR RHYTHM - GI/Abdominal Exam GI & Abdominal Exam: Soft. absent: Distended, Firm, Guarding, Rigid, Tenderness , Rebound - Neurological Exam Neurological Exam: Alert, Oriented x3 - Psychiatric Exam Psychiatric exam: Normal Affect, Normal Mood - Skin Skin Exam: Dry, Intact Assessment and Plan - Assessment and Plan (Free Text) Assessment: 87 y/o M w/ RUQ abd pain, gallstone pancreatitis vs. cholecystitis - Pain improved - F/U AM Labs, repeat Lipase, Amylase - Trial clear liquids - Monitor diet tolerance - If pt remains asymptomatic will likely plan for non-op management, if pain worsens then OR this admission DW Dr. Pinky Juares PGY4
[2018-01-15 07:11] LABS: BASO # 0.1 K/uL (0.0-0.2); BASO % 1.3 % (0.0-2.0); EOS # 0.1 K/uL (0.0-0.7); EOS % 3.1 % (0.0-4.0); HEMOGLOBIN 12.6 g/dL (12.0-18.0); LYMPH # 1.1 K/uL (1.0-4.3); LYMPH % 23.1 % (20.0-40.0); MEAN CELL VOLUME 85.3 fl (80.0-94.0); MEAN CORPUSCULAR HGB CONC 32.8 g/dL (33.0-37.0); MEAN PLATELET VOLUME 10.5 fl (7.2-11.7); MONO # 0.5 K/uL (0.0-0.8); MONO % 11.4 % (0.0-10.0); NEUT # 2.8 K/uL (1.8-7.0); NEUT % 61.1 % (50.0-75.0); NRBC % 0.1 % (0.0-0.0); RBC 4.49 Mil/uL (4.40-5.90); RED CELL DISTRIBUTION WIDTH 15.1 % (11.5-14.5); WHITE BLOOD COUNT 4.6 K/uL (4.8-10.8)
[2018-01-15 07:34] LABS: ALB/GLOB RATIO 1.2 (1.0-2.1); ALBUMIN 3.5 g/dL (3.5-5.0); ALT/SGPT 87 U/L (21-72); AST/SGOT 79 U/L (17-59); BLOOD UREA NITROGEN 14 mg/dl (9-20); CALCIUM 8.7 mg/dL (8.4-10.2); GFR AFRICAN-AMERICAN > 60; GFR NON-AFRICAN AMERICAN > 60
--- NOTE | 2018-01-15 07:55 | CP.PCM.PN ---
Subjective - Date & Time of Evaluation Date of Evaluation: 01/15/18 Time of Evaluation: 07:53 - Subjective Subjective: Patient remains stable Has no fever Has no chest pain WBC is normal. Objective - Vital Signs/Intake and Output Vital Signs (last 24 hours): Temp Pulse Resp BP Pulse Ox 97.9 F 60 20 117/55 L 95 01/15/18 01:08 01/15/18 01:08 01/15/18 01:08 01/15/18 01:08 01/15/18 01:08 - Medications Medications: Current Medications Amlodipine Besylate (Norvasc) 5 mg PO DAILY [facility] Last Admin: 01/14/18 14:41 Dose: 5 mg Piperacillin Sod/Tazobactam (Sod 3.375 gm/ Sodium Chloride) 100 mls @ 100 mls/ hr IVPB Q6 LUCIO PRN Reason: Protocol Last Admin: 01/15/18 03:14 Dose: 100 mls/hr Lactated Ringer's (Lactated Ringer's) 1,000 mls @ 100 mls/hr IV .Q10H [facility] Last Admin: 01/14/18 22:28 Dose: 100 mls/hr Morphine Sulfate (Morphine) 2 mg IVP Q4 PRN PRN Reason: Pain, severe (8-10) Pantoprazole Sodium (Protonix Inj) 40 mg IVP DAILY [facility] Last Admin: 01/14/18 09:32 Dose: 40 mg Valsartan (Diovan) 160 mg PO DAILY [facility] - Labs Labs: 01/15/18 05:30 01/15/18 05:30 PT 11.5 Seconds (9.8-13.1) 01/13/18 23:08 INR 1.0 (0.9-1.2) 01/13/18 23:08 APTT 31.2 Seconds (25.6-37.1) 01/13/18 23:08 - Head Exam Head Exam: NORMAL INSPECTION - Eye Exam Eye Exam: Normal appearance - ENT Exam ENT Exam: Mucous Membranes Moist - Respiratory Exam Respiratory Exam: Clear to Ausculation Bilateral - Cardiovascular Exam Cardiovascular Exam: REGULAR RHYTHM - GI/Abdominal Exam GI & Abdominal Exam: Tenderness, Normal Bowel Sounds - Neurological Exam Neurological Exam: Awake, Oriented x3 - Psychiatric Exam Psychiatric exam: Normal Mood Assessment and Plan (1) Acute cholecystitis Status: Acute (2) Gallstone pancreatitis Status: Acute (3) Cholelithiasis Status: Chronic (4) Diabetes Status: Chronic - Assessment and Plan (Free Text) Plan: Cont meds Cont NPO for surgery today Patient is not sure about consenting to surgery. Advised staff to call on family and residential sales representative to discuss with patient again.
--- NOTE | 2018-01-15 08:53 | CP.PCM.PN ---
Subjective - Date & Time of Evaluation Date of Evaluation: 01/15/18 Time of Evaluation: 08:45 - Subjective Subjective: Patient seen and examined. Resting in bed comfortably, no acute events overnight. He endorses mild epigastric abdominal pain but denies nausea, vomiting, fever/chills. He is being evaluated potential surgical intervention today. 12 point review of systems performed, negative aside from mentioned above. Objective - Vital Signs/Intake and Output Vital Signs (last 24 hours): Temp Pulse Resp BP Pulse Ox 97.7 F 53 L 20 152/61 H 93 L 01/15/18 08:44 01/15/18 08:44 01/15/18 08:44 01/15/18 08:44 01/15/18 08:44 - Medications Medications: Current Medications Amlodipine Besylate (Norvasc) 5 mg PO DAILY [facility] Last Admin: 01/14/18 14:41 Dose: 5 mg Piperacillin Sod/Tazobactam (Sod 3.375 gm/ Sodium Chloride) 100 mls @ 100 mls/ hr IVPB Q6 LUCIO PRN Reason: Protocol Last Admin: 01/15/18 03:14 Dose: 100 mls/hr Lactated Ringer's (Lactated Ringer's) 1,000 mls @ 100 mls/hr IV .Q10H [facility] Last Admin: 01/14/18 22:28 Dose: 100 mls/hr Morphine Sulfate (Morphine) 2 mg IVP Q4 PRN PRN Reason: Pain, severe (8-10) Pantoprazole Sodium (Protonix Inj) 40 mg IVP DAILY [facility] Last Admin: 01/14/18 09:32 Dose: 40 mg Valsartan (Diovan) 160 mg PO DAILY [facility] - Labs Labs: 01/15/18 05:30 01/15/18 05:30 PT 11.5 Seconds (9.8-13.1) 01/13/18 23:08 INR 1.0 (0.9-1.2) 01/13/18 23:08 APTT 31.2 Seconds (25.6-37.1) 01/13/18 23:08 - Constitutional Appears: Non-toxic, No Acute Distress - Head Exam Head Exam: NORMAL INSPECTION - Eye Exam Eye Exam: EOMI, Normal appearance - ENT Exam ENT Exam: Mucous Membranes Moist - Respiratory Exam Respiratory Exam: Clear to Ausculation Bilateral - Cardiovascular Exam Cardiovascular Exam: +S1, +S2 - GI/Abdominal Exam GI & Abdominal Exam: Soft, Tenderness, Normal Bowel Sounds Additional comments: mild epigastric tenderness to palpation, no rebound/guarding - Extremities Exam Extremities Exam: Normal Inspection - Skin Skin Exam: Dry, Intact, Normal Color, Warm Assessment and Plan - Assessment and Plan (Free Text) Assessment: DM / HTN Dementia Gout Abdominal pain - acute cholecystitis Plan: - Liquid diet as tolerated - LFTs stable, continue to monitor - Continue with antibiotic therapy - US reviewed by me showing normal caliber CBD - Follow up surgical recommendations regarding timing of potential cholecystectomy - No further planned GI intervention, will sign off case. Please reconsult as necessary, thank you.
[2018-01-15 09:10] LABS: AMYLASE 75 U/L (30-110); LIPASE 48 U/L (23-300)
--- NOTE | 2018-01-15 12:08 | CP.PCM.CON ---
History of Present Illness - History of Present Illness History of Present Illness: This 87-year-old man is being evaluated for possible surgical intervention for an acute cholecystitis. The patient at this juncture is being treated, the relatively and the evaluation was requested for possible surgical intervention. The patient is a long-standing hypertensive with significant cognitive deficiencies, due to short-term memory loss. The patient was hospitalized at the end of January 2017 and required eventually coronary angiogram on February 04 to assess his coronary circulation and left ventricular systolic function. Mild to moderate coronary stenosis and a preserved left ventricular systolic function were found at that time. There is no prior history of congestive cardiac failure. Physical examination shows an elderly man who appears mildly confused about his surroundings. He can answer simple questions appropriately. His heart rate was 70 bpm regular and his blood pressure was 132/74 mmHg. His jugular venous pressure was not elevated and his pedal pulses though feeble were present. His extremities were warm and his nailbeds were pink. There was no central or peripheral cyanosis. There was no clubbing. The apex was not palpable the first and second heart sounds were normal. There was no murmur or gallop there were no rales. There was a vague sense of tenderness in the right hypochondrial region there was no organomegaly or guarding. His electrocardiogram showed sinus rhythm with flattening of ST segments in leads 1 and aVL as well as V6, a pattern seen on his cardiogram of January as well. Review off his echocardiogram reveals preserved left ventricular systolic function. His lab data was noted. Impression: Acute cholecystitis, resolving. History of hypertension. The patient is stable from cardiovascular point of view to proceed with cholecystectomy if it becomes necessary. Past Patient History - Infectious Disease Hx of Infectious Diseases: None - Tetanus Immunizations Tetanus Immunization: Unknown - Past Medical History & Family History Past Medical History?: Yes - Past Social History Smoking Status: Former Smoker - CARDIAC Hx Congestive Heart Failure: No Hx Hypercholesterolemia: Yes Hx Hypertension: Yes - PULMONARY Hx Asthma: Yes Hx Chronic Obstructive Pulmonary Disease (COPD): No Hx Pneumonia: Yes - NEUROLOGICAL Hx Parkinson's Disease: Yes - HEENT Hx HEENT Problems: No - RENAL Hx Chronic Kidney Disease: No - ENDOCRINE/METABOLIC Hx Hypothyroidism: No - HEMATOLOGICAL/ONCOLOGICAL Hx Anemia: No Hx Human Immunodeficiency Virus (HIV): No - INTEGUMENTARY Hx Dermatological Problems: No - MUSCULOSKELETAL/RHEUMATOLOGICAL Hx Arthritis: Yes Hx Falls: No Hx Rheumatoid Arthritis: No - GASTROINTESTINAL Hx Gastrointestinal Disorders: No - GENITOURINARY/GYNECOLOGICAL Hx Genitourinary Disorders: Yes - PSYCHIATRIC Hx Depression: Yes Hx Substance Use: No - SURGICAL HISTORY Hx Appendectomy: Yes Hx Coronary Stent: Yes - ANESTHESIA Hx Anesthesia: Yes Hx Anesthesia Reactions: No Hx Malignant Hyperthermia: No Meds Allergies/Adverse Reactions: Allergies Allergy/AdvReac Type Severity Reaction Status Date / Time No Known Allergies Allergy Verified 11/05/17 20:34 - Medications Medications: Current Medications Amlodipine Besylate (Norvasc) 5 mg PO DAILY [facility] Last Admin: 01/15/18 08:56 Dose: 5 mg Piperacillin Sod/Tazobactam (Sod 3.375 gm/ Sodium Chloride) 100 mls @ 100 mls/ hr IVPB Q6 LUCIO PRN Reason: Protocol Last Admin: 01/15/18 09:10 Dose: 100 mls/hr Lactated Ringer's (Lactated Ringer's) 1,000 mls @ 100 mls/hr IV .Q10H [facility] Last Admin: 01/14/18 22:28 Dose: 100 mls/hr Morphine Sulfate (Morphine) 2 mg IVP Q4 PRN PRN Reason: Pain, severe (8-10) Pantoprazole Sodium (Protonix Inj) 40 mg IVP DAILY [facility] Last Admin: 01/15/18 08:57 Dose: 40 mg Valsartan (Diovan) 160 mg PO DAILY [facility] Last Admin: 01/15/18 08:56 Dose: 160 mg Results - Vital Signs Recent Vital Signs: Last Vital Signs Temp 97.7 F 01/15/18 08:44 Pulse 53 L 01/15/18 08:56 Resp 20 01/15/18 08:44 BP 152/61 H 01/15/18 08:56 Pulse Ox 93 L 01/15/18 08:44 - Labs Result Diagrams: 01/15/18 05:30 01/15/18 05:30 Labs: Laboratory Results - last 24 hr 01/14/18 01/15/18 01/15/18 14:28 05:30 05:30 WBC 4.6 L RBC 4.49 Hgb 12.6 Hct 38.3 MCV 85.3 MCH 28.0 MCHC 32.8 L RDW 15.1 H Plt Count 142 MPV 10.5 Neut % (Auto) 61.1 Lymph % (Auto) 23.1 Slope % (Auto) 11.4 H Eos % (Auto) 3.1 Baso % (Auto) 1.3 Neut # (Auto) 2.8 Lymph # (Auto) 1.1 Slope # (Auto) 0.5 Eos # (Auto) 0.1 Baso # (Auto) 0.1 Sodium 140 Potassium 3.9 Chloride 105 Carbon Dioxide 24 Anion Gap 15 BUN 14 Creatinine 0.9 Est GFR ( Amer) > 60 Est GFR (Non-Af Amer) > 60 Random Glucose 97 Calcium 8.7 Total Bilirubin 1.4 H AST 79 H D ALT 87 H Alkaline Phosphatase 83 Total Protein 6.5 Albumin 3.5 Globulin 3.0 Albumin/Globulin Ratio 1.2 Triglycerides 81 D Amylase Lipase 01/15/18 08:05 WBC RBC Hgb Hct MCV MCH MCHC RDW Plt Count MPV Neut % (Auto) Lymph % (Auto) Slope % (Auto) Eos % (Auto) Baso % (Auto) Neut # (Auto) Lymph # (Auto) Slope # (Auto) Eos # (Auto) Baso # (Auto) Sodium Potassium Chloride Carbon Dioxide Anion Gap BUN Creatinine Est GFR ( Amer) Est GFR (Non-Af Amer) Random Glucose Calcium Total Bilirubin AST ALT Alkaline Phosphatase Total Protein Albumin Globulin Albumin/Globulin Ratio Triglycerides Amylase 75 Lipase 48
[2018-01-15] MEDS: Lactated Ringer's 1,000 ML IV SCH (12:38)
[2018-01-16] MEDS: Lactated Ringer's 1,000 ML IV SCH ×2 (00:57→04:14)
[2018-01-16] MEDS: Piperacillin/Tazobact 3.375 GM in Sodium Chloride 0.9% 100 ML IVPB SCH ×4 (04:15→22:05)
--- NOTE | 2018-01-16 08:26 | CP.PCM.PN ---
Subjective - Date & Time of Evaluation Date of Evaluation: 01/16/18 Time of Evaluation: 08:24 - Subjective Subjective: General Surgery Dr. Vance Pt S&E @bedside. NAEO. pt has no complaints. pain improved. denies N/V, F/V. tolerating CLD. Objective - Vital Signs/Intake and Output Vital Signs (last 24 hours): Temp Pulse Resp BP Pulse Ox 98.3 F 61 18 143/51 L 95 01/16/18 01:09 01/16/18 01:09 01/16/18 01:09 01/16/18 01:09 01/16/18 01:09 - Medications Medications: Current Medications Amlodipine Besylate (Norvasc) 5 mg PO DAILY [facility] Last Admin: 01/15/18 08:56 Dose: 5 mg Piperacillin Sod/Tazobactam (Sod 3.375 gm/ Sodium Chloride) 100 mls @ 100 mls/ hr IVPB Q6 LUCIO PRN Reason: Protocol Last Admin: 01/16/18 04:15 Dose: 100 mls/hr Lactated Ringer's (Lactated Ringer's) 1,000 mls @ 100 mls/hr IV .Q10H [facility] Last Admin: 01/16/18 04:14 Dose: Not Given Morphine Sulfate (Morphine) 2 mg IVP Q4 PRN PRN Reason: Pain, severe (8-10) Pantoprazole Sodium (Protonix Inj) 40 mg IVP DAILY [facility] Last Admin: 01/15/18 08:57 Dose: 40 mg Valsartan (Diovan) 160 mg PO DAILY [facility] Last Admin: 01/15/18 08:56 Dose: 160 mg - Labs Labs: 01/15/18 05:30 01/15/18 05:30 PT 11.5 Seconds (9.8-13.1) 01/13/18 23:08 INR 1.0 (0.9-1.2) 01/13/18 23:08 APTT 31.2 Seconds (25.6-37.1) 01/13/18 23:08 Laboratory Tests 01/15/18 08:05 Amylase 75 Lipase 48 - Constitutional Appears: Non-toxic, No Acute Distress - Head Exam Head Exam: NORMAL INSPECTION - Eye Exam Eye Exam: Normal appearance. absent: Scleral icterus - ENT Exam ENT Exam: Mucous Membranes Moist - Respiratory Exam Respiratory Exam: NORMAL BREATHING PATTERN. absent: Accessory Muscle Use, Respiratory Distress - Cardiovascular Exam Cardiovascular Exam: REGULAR RHYTHM. absent: Bradycardia, Tachycardia - GI/Abdominal Exam GI & Abdominal Exam: Soft, Tenderness (minimal RUQ/epigastric TTP). absent: Distended, Firm, Guarding, Rigid, Rebound - Extremities Exam Extremities Exam: Normal Inspection - Neurological Exam Neurological Exam: Alert, Awake - Psychiatric Exam Psychiatric exam: Normal Affect, Normal Mood - Skin Skin Exam: Dry, Intact, Normal Color, Warm Assessment and Plan - Assessment and Plan (Free Text) Assessment: 87 y/o M w/ RUQ abd pain 2/2 gallstone pancreatitis vs. cholecystitis - Pain improved - lipase/amylase WNL - ADAT - monitor bowel fxn - encourage OOB to chair/Amb - plan for non-op management, if pain worsens then OR this admission Further recs per Dr. Pinky Cerda DO PGY3
[2018-01-16 08:32] VITALS: RESP 20
[2018-01-16 09:04] LABS: ALB/GLOB RATIO 1.2 (1.0-2.1); ALBUMIN 3.7 g/dL (3.5-5.0); ALT/SGPT 74 U/L (21-72); AST/SGOT 56 U/L (17-59); BLOOD UREA NITROGEN 9 mg/dl (9-20); CALCIUM 8.9 mg/dL (8.4-10.2); GFR AFRICAN-AMERICAN > 60; GFR NON-AFRICAN AMERICAN > 60
--- NOTE | 2018-01-16 18:35 | CP.PCM.PN ---
Subjective - Date & Time of Evaluation Date of Evaluation: 01/16/18 Time of Evaluation: 10:40 - Subjective Subjective: Patient is doing well Has no abd pain Tolerating diet. Has no fever. Objective - Vital Signs/Intake and Output Vital Signs (last 24 hours): Temp Pulse Resp BP Pulse Ox 97.8 F 56 L 20 147/59 L 93 L 01/16/18 17:00 01/16/18 17:00 01/16/18 17:00 01/16/18 17:00 01/16/18 17:00 - Medications Medications: Current Medications Amlodipine Besylate (Norvasc) 5 mg PO DAILY [facility] Last Admin: 01/16/18 09:11 Dose: 5 mg Piperacillin Sod/Tazobactam (Sod 3.375 gm/ Sodium Chloride) 100 mls @ 100 mls/ hr IVPB Q6 LUCIO PRN Reason: Protocol Last Admin: 01/16/18 15:51 Dose: 100 mls/hr Morphine Sulfate (Morphine) 2 mg IVP Q4 PRN PRN Reason: Pain, severe (8-10) Pantoprazole Sodium (Protonix Inj) 40 mg IVP DAILY [facility] Last Admin: 01/16/18 09:11 Dose: 40 mg Valsartan (Diovan) 160 mg PO DAILY [facility] Last Admin: 01/16/18 09:10 Dose: 160 mg - Labs Labs: 01/15/18 05:30 01/16/18 08:30 PT 11.5 Seconds (9.8-13.1) 01/13/18 23:08 INR 1.0 (0.9-1.2) 01/13/18 23:08 APTT 31.2 Seconds (25.6-37.1) 01/13/18 23:08 - Head Exam Head Exam: NORMAL INSPECTION - Eye Exam Eye Exam: Normal appearance - ENT Exam ENT Exam: Mucous Membranes Moist - Cardiovascular Exam Cardiovascular Exam: REGULAR RHYTHM - GI/Abdominal Exam GI & Abdominal Exam: Normal Bowel Sounds - Neurological Exam Neurological Exam: Awake, Oriented x3 - Psychiatric Exam Psychiatric exam: Anxious Assessment and Plan (1) Acute cholecystitis Status: Acute (2) Gallstone pancreatitis Status: Acute (3) Cholelithiasis Status: Chronic (4) Diabetes Status: Chronic (5) Hypertension Status: Acute - Assessment and Plan (Free Text) Plan: Cont meds Cont tx po flagyl and cipro advance diet
--- NOTE | 2018-01-17 07:27 | CP.PCM.PN ---
Subjective - Date & Time of Evaluation Date of Evaluation: 01/17/18 Time of Evaluation: 07:25 - Subjective Subjective: General surgery progress note for Dr. Rikki Dee, PGY-2 Pt S & E at bedside at 0650 Pt reports abdominal pain resolved. Tolerating diet. Deneis N & V, F & C. No other complaints. Asking for his clothing to go home. Objective - Vital Signs/Intake and Output Vital Signs (last 24 hours): Temp Pulse Resp BP Pulse Ox 97.8 F 60 20 146/62 95 01/17/18 00:16 01/17/18 00:16 01/17/18 00:16 01/17/18 00:16 01/17/18 00:16 - Medications Medications: Current Medications Amlodipine Besylate (Norvasc) 5 mg PO DAILY [facility] Last Admin: 01/16/18 09:11 Dose: 5 mg Ciprofloxacin (Cipro) 500 mg PO Q12 LUCIO PRN Reason: Protocol Stop: 01/22/18 09:01 Metronidazole (Flagyl) 500 mg PO Q12 LUCIO PRN Reason: Protocol Stop: 01/22/18 09:01 Morphine Sulfate (Morphine) 2 mg IVP Q4 PRN PRN Reason: Pain, severe (8-10) Pantoprazole Sodium (Protonix Inj) 40 mg IVP DAILY [facility] Last Admin: 01/16/18 09:11 Dose: 40 mg Valsartan (Diovan) 160 mg PO DAILY [facility] Last Admin: 01/16/18 09:10 Dose: 160 mg - Labs Labs: 01/15/18 05:30 01/16/18 08:30 PT 11.5 Seconds (9.8-13.1) 01/13/18 23:08 INR 1.0 (0.9-1.2) 01/13/18 23:08 APTT 31.2 Seconds (25.6-37.1) 01/13/18 23:08 - Constitutional Appears: Non-toxic, No Acute Distress - Head Exam Head Exam: ATRAUMATIC, NORMAL INSPECTION, NORMOCEPHALIC - Eye Exam Eye Exam: EOMI, Normal appearance - ENT Exam ENT Exam: Mucous Membranes Moist, Normal Exam - Neck Exam Neck Exam: Full ROM, Normal Inspection - Respiratory Exam Respiratory Exam: NORMAL BREATHING PATTERN - Cardiovascular Exam Cardiovascular Exam: REGULAR RHYTHM, +S1, +S2 - GI/Abdominal Exam GI & Abdominal Exam: Soft. absent: Distended, Firm, Guarding, Tenderness - Extremities Exam Extremities Exam: Normal Inspection - Neurological Exam Neurological Exam: Alert, Awake - Psychiatric Exam Psychiatric exam: Normal Affect, Normal Mood - Skin Skin Exam: Dry, Intact, Normal Color, Warm Assessment and Plan - Assessment and Plan (Free Text) Assessment: 87M w/ RUQ abd pain 2/2 gallstone pancreatitis vs. cholecystitis-resolving Plan: Continue diet OOBTC Ambulate with assistance Cleared for d/c home on Cipro, Flagyl for 5 days Pt to follow up with Dr. Vance in 7-10 days after discharge home No surgical intervention at this time Please re-consult as needed LAURA attending Leila, PGY-2
[2018-01-17 07:59] VITALS: BP 159/61; PULSE 81; TEMP 98.6
--- NOTE | 2018-01-17 10:15 | CP.PCM.DIS ---
Provider - Provider Date of Admission: 01/13/18 23:20 Attending physician: Cliff Smith MD Time Spent in preparation of Discharge (in minutes): 30 Diagnosis - Discharge Diagnosis (1) Acute cholecystitis Status: Acute (2) Gallstone pancreatitis Status: Acute (3) Cholelithiasis Status: Chronic (4) Diabetes Status: Chronic (5) Hypertension Status: Acute Hospital Course - Lab Results Lab Results: Micro Results 01/13/18 23:15 Blood-Venous Blood Culture - Preliminary NO GROWTH AFTER 3 DAYS 01/13/18 23:00 Blood-Venous Blood Culture - Preliminary NO GROWTH AFTER 3 DAYS 01/13/18 21:20 Urine,Clean Catch Urine Culture - Final No Growth (<1,000 CFU/ML) Most Recent Lab Values WBC 4.6 K/uL (4.8-10.8) L 01/15/18 05:30 RBC 4.49 Mil/uL (4.40-5.90) 01/15/18 05:30 Hgb 12.6 g/dL (12.0-18.0) 01/15/18 05:30 Hct 38.3 % (35.0-51.0) 01/15/18 05:30 MCV 85.3 fl (80.0-94.0) 01/15/18 05:30 MCH 28.0 pg (27.0-31.0) 01/15/18 05:30 MCHC 32.8 g/dL (33.0-37.0) L 01/15/18 05:30 RDW 15.1 % (11.5-14.5) H 01/15/18 05:30 Plt Count 142 K/uL (130-400) 01/15/18 05:30 MPV 10.5 fl (7.2-11.7) 01/15/18 05:30 Neut % (Auto) 61.1 % (50.0-75.0) 01/15/18 05:30 Lymph % (Auto) 23.1 % (20.0-40.0) 01/15/18 05:30 [place] % (Auto) 11.4 % (0.0-10.0) H 01/15/18 05:30 Eos % (Auto) 3.1 % (0.0-4.0) 01/15/18 05:30 Baso % (Auto) 1.3 % (0.0-2.0) 01/15/18 05:30 Neut # (Auto) 2.8 K/uL (1.8-7.0) 01/15/18 05:30 Lymph # (Auto) 1.1 K/uL (1.0-4.3) 01/15/18 05:30 [place] # (Auto) 0.5 K/uL (0.0-0.8) 01/15/18 05:30 Eos # (Auto) 0.1 K/uL (0.0-0.7) 01/15/18 05:30 Baso # (Auto) 0.1 K/uL (0.0-0.2) 01/15/18 05:30 Neutrophils % (Manual) 87 % (42-75) H 01/13/18 21:20 Band Neutrophils % 1 % (0-2) 01/13/18 21:20 Lymphocytes % (Manual) 9 % (20-50) L 01/13/18 21:20 Monocytes % (Manual) 3 % (0-10) 01/13/18 21:20 Platelet Estimate Normal (NORMAL) 01/13/18 21:20 Hypochromasia (manual) Slight 01/13/18 21:20 Anisocytosis (manual) Slight 01/13/18 21:20 Acanthocytes (Spur) Slight 01/13/18 21:20 PT 11.5 Seconds (9.8-13.1) 01/13/18 23:08 INR 1.0 (0.9-1.2) 01/13/18 23:08 APTT 31.2 Seconds (25.6-37.1) 01/13/18 23:08 pO2 53 mm/Hg (30-55) 01/13/18 23:13 VBG pH 7.42 (7.32-7.43) 01/13/18 23:13 VBG pCO2 41 mmHg (40-60) 01/13/18 23:13 VBG HCO3 26.1 mmol/L 01/13/18 23:13 VBG Total CO2 27.9 mmol/L (22-28) 01/13/18 23:13 VBG O2 Sat (Calc) 92.2 % (40-65) H 01/13/18 23:13 VBG Base Excess 1.9 mmol/L (0.0-2.0) 01/13/18 23:13 VBG Potassium 3.9 mmol/L (3.6-5.2) 01/13/18 23:13 Sodium 136.0 mmol/L (132-148) 01/13/18 23:13 Chloride 105.0 mmol/L (98-107) 01/13/18 23:13 Glucose 130 mg/dL (75-110) H 01/13/18 23:13 Lactate 1.4 mmol/L (0.7-2.1) 01/13/18 23:13 FiO2 21.0 % 01/13/18 23:13 Sodium 143 mmol/l (132-148) 01/16/18 08:30 Potassium 4.2 MMOL/L (3.6-5.0) 01/16/18 08:30 Chloride 107 mmol/L (98-107) 01/16/18 08:30 Carbon Dioxide 27 mmol/L (22-30) 01/16/18 08:30 Anion Gap 13 (10-20) 01/16/18 08:30 BUN 9 mg/dl (9-20) 01/16/18 08:30 Creatinine 0.9 mg/dl (0.8-1.5) 01/16/18 08:30 Est GFR ( Amer) > 60 01/16/18 08:30 Est GFR (Non-Af Amer) > 60 01/16/18 08:30 Random Glucose 107 mg/dL (75-110) 01/16/18 08:30 Calcium 8.9 mg/dL (8.4-10.2) 01/16/18 08:30 Phosphorus 2.9 mg/dl (2.5-4.5) 01/14/18 10:13 Magnesium 2.0 MG/DL (1.6-2.3) 01/14/18 10:13 Total Bilirubin 0.9 mg/dl (0.2-1.3) 01/16/18 08:30 AST 56 U/L (17-59) 01/16/18 08:30 ALT 74 U/L (21-72) H 01/16/18 08:30 Alkaline Phosphatase 78 U/L (38-126) 01/16/18 08:30 Troponin I 0.0140 ng/mL (0.00-0.120) 01/13/18 21:20 Total Protein 6.8 G/DL (6.3-8.2) 01/16/18 08:30 Albumin 3.7 g/dL (3.5-5.0) 01/16/18 08:30 Globulin 3.1 gm/dL (2.2-3.9) 01/16/18 08:30 Albumin/Globulin Ratio 1.2 (1.0-2.1) 01/16/18 08:30 Triglycerides 81 mg/DL (0-149) D 01/14/18 14:28 Amylase 75 U/L (30-110) 01/15/18 08:05 Lipase 48 U/L (23-300) 01/15/18 08:05 Venous Blood Potassium 3.9 mmol/L (3.6-5.2) 01/13/18 23:13 Urine Color Yellow (YELLOW) 01/13/18 21:20 Urine Clarity Clear (Clear) 01/13/18 21:20 Urine pH 6.0 (5.0-8.0) 01/13/18 21:20 Ur Specific [place] 1.017 (1.003-1.030) 01/13/18 21:20 Urine Protein Negative mg/dL (NEGATIVE) 01/13/18 21:20 Urine Glucose (UA) Neg mg/dL (Normal) 01/13/18 21:20 Urine Ketones Negative mg/dL (NEGATIVE) 01/13/18 21:20 Urine Blood Small (NEGATIVE) 01/13/18 21:20 Urine Nitrate Negative (NEGATIVE) 01/13/18 21:20 Urine Bilirubin Negative (NEGATIVE) 01/13/18 21:20 Urine Urobilinogen 4.0 mg/dL (0.2-1.0) 01/13/18 21:20 Ur Leukocyte Esterase Neg Mendy/uL (Negative) 01/13/18 21:20 Urine RBC (Auto) 5 /hpf (0-3) H 01/13/18 21:20 Urine Microscopic WBC < 1 /hpf (0-5) 01/13/18 21:20 Ur Squamous Epith Cells < 1 /hpf (0-5) 01/13/18 21:20 Urine Bacteria Rare (<OCC) 01/13/18 21:20 - Hospital Course Hospital Course: This is an 87 y/o male admitted for cholelithiasis and cholecystitis. He presented with abd pain. He was started on iv antibiotics and responded very well. Surgery was planned but patient refused in the last minute. Hence iv antibiotics was continued. he was switched to po meds and was discharged in stable condition He was advised to follow up with surgery in 2 weeks Family is aware. Discharge Exam - Head Exam Head Exam: NORMAL INSPECTION - Eye Exam Eye Exam: Normal appearance - Respiratory Exam Respiratory Exam: NORMAL BREATHING PATTERN - Cardiovascular Exam Cardiovascular Exam: REGULAR RHYTHM - GI/Abdominal Exam GI & Abdominal Exam: Normal Bowel Sounds - Neurological Exam Neurological exam: CN II-XII Intact - Psychiatric Exam Psychiatric exam: Normal Mood Discharge Plan - Discharge Medications Prescriptions: Ciprofloxacin [Cipro] 500 mg PO Q12 #12 tab metroNIDAZOLE [Flagyl] 500 mg PO Q12 #12 tab - Follow Up Plan Condition: FAIR Disposition: HOME/ ROUTINE Instructions: Pancreatitis (DC), Gallstones (DC) Additional Instructions: Please call Dr. Vance office to make a follow up appointment in 7-10 days Please take antibotics as prescribed he will follow up in my office in 1 week Referrals: Derek Vance MD [Staff Provider] -
--- NOTE | 2018-01-17 11:48 | CARD ---
APPROVED REPORT Date of service: 01/13/2018 EKG Measurement Heart [id number] 158P-13 [id number] <Conclusion> Sinus bradycardia Left axis deviation Nonspecific ST and T wave abnormality Prolonged QT Abnormal ECG
--- NOTE | 2018-01-17 13:12 | CARD ---
APPROVED REPORT Date of service: 01/14/2018 EXAM: Two-dimensional and M-mode echocardiogram with Doppler and color Doppler. Other Information Quality : AverageRhythm : NSR INDICATION Pre-Op 2D DIMENSIONS IVSd1.39 (0.7-1.1cm)LVDd4.58 (3.9-5.9cm) PWd1.18 (0.7-1.1cm)IVSs0.95 (0.8-1.2cm) LVDs3.20 (2.5-4.0cm)FS (%) 30.1 % PWs1.24 (0.8-1.2cm) M-Mode DIMENSIONS IVSd0.81 (0.7-1.1cm)LVDd7.94 (4.0-5.6cm) PWd1.18 (0.7-1.1cm)IVSs1.32 cm FS (%) 37 %LVDs5.04 (2.0-3.8cm) PWs1.58 cm Aortic Valve AoV Peak Hnlaayrn941.4cm/sAoV VTI43.0cmAO Peak GR.19mmHg LVOT Peak Wxuzaftn754.4cm/sLVOT VTI27.15cmAO Mean GR.8mmHg AI P 1/2 [id number] Mitral Valve MV E Rrytqcau38.2cm/sMV DECEL [id number] A Fsdyxfyg04.3cm/s MV NYF03onW/A ratio2.4MVA (PHT)2.95cm2 TDI Lateral E' Peak V10.27cm/sMedial E' Peak V5.95cm/sE/Lateral E'7.4 E/Medial E'12.8 Tricuspid Valve TR Peak Myulphgv676rw/sRAP IAMLSGHR97fyDiCY Peak Gr.34mmHg [id number] LEFT VENTRICLE The left ventricle is normal size. There is mild concentric left ventricular hypertrophy. The left ventricular function is normal. The left ventricular ejection fraction is within the normal range. The Ejection Fraction is 60-65%. There is normal LV segmental wall motion. Transmitral Doppler flow pattern is Grade II-pseudonormal filling dynamics. RIGHT VENTRICLE The right ventricle is normal size. There is normal right ventricular wall thickness. The right ventricular systolic function is normal. ATRIA The left atrium is mildly dilated. The right atrium size is normal. AORTIC VALVE The aortic valve is thickened but opens well. There is mild to moderate aortic regurgitation. There is no aortic valvular stenosis. MITRAL VALVE The mitral valve is thickened but opens well. There is no evidence of mitral valve prolapse. There is no mitral valve stenosis. Mitral regurgitation is mild. TRICUSPID VALVE The tricuspid valve leaflets are thickened , but open well. There is mild tricuspid regurgitation. There is no tricuspid valve prolapse or vegetation. There is no tricuspid valve stenosis. PULMONIC VALVE The pulmonic valve is not well visualized. There is no pulmonic valvular regurgitation. GREAT VESSELS The aortic root is normal in size. The IVC is normal in size and collapses >50% with inspiration. PERICARDIAL EFFUSION The pericardium appears normal. <Conclusion> The left ventricular function is normal. The left ventricular ejection fraction is within the normal range. The Ejection Fraction is 60-65%. Transmitral Doppler flow pattern is Grade II-pseudonormal filling dynamics. The left atrium is mildly dilated. There is mild to moderate aortic regurgitation. Mitral regurgitation is mild. There is mild tricuspid regurgitation.
[2018-01-18 05:20] VITALS: O2SAT 94
== END 2018-01-17 11:35 | disposition home or self-care (01) | DRG 207 ==
LOC: H.ER 20:13 → H.ERHOLD 23:20 → H.MEDSURG1 01-14 00:12
PROVIDERS: ADMIT Family Medicine; ATTEND Family Medicine
DX: K80.00 Calculus of gallbladder with acute cholecystitis without obstruction (principal); K85.10 Biliary acute pancreatitis without necrosis or infection; E11.51 Type 2 diabetes mellitus with diabetic peripheral angiopathy without gangrene; F03.90 Unspecified dementia, unspecified severity, without behavioral disturbance, psychotic disturbance, mood disturbance, and anxiety; M10.9 Gout, unspecified; E78.5 Hyperlipidemia, unspecified; N40.0 Benign prostatic hyperplasia without lower urinary tract symptoms; Z79.82 Long term (current) use of aspirin; Z87.01 Personal history of pneumonia (recurrent); Z87.891 Personal history of nicotine dependence; Z90.49 Acquired absence of other specified parts of digestive tract; Z95.5 Presence of coronary angioplasty implant and graft; F32.9 Major depressive disorder, single episode, unspecified; M54.5 Low back pain; G89.29 Other chronic pain; K29.70 Gastritis, unspecified, without bleeding; M19.90 Unspecified osteoarthritis, unspecified site; Z79.899 Other long term (current) drug therapy; R79.89 Other specified abnormal findings of blood chemistry; E78.00 Pure hypercholesterolemia, unspecified; G20 Parkinson's disease; I10 Essential (primary) hypertension; I25.10 Atherosclerotic heart disease of native coronary artery without angina pectoris; J45.909 Unspecified asthma, uncomplicated

== ENCOUNTER 2018-02-01 16:47 | Inpatient (IN) | payer MEDICAID ==
[2018-02-01 16:47] VITALS: BMI 32.9
[2018-02-01 19:03] LABS: EOS # 0.1 K/uL (0.0-0.7); EOS % 3.3 % (0.0-4.0); HEMOGLOBIN 11.9 g/dL (12.0-18.0); LYMPH # 1.5 K/uL (1.0-4.3); LYMPH % 36.3 % (20.0-40.0); MEAN CELL VOLUME 84.8 fl (80.0-94.0); MEAN CORPUSCULAR HEMOGLOBIN 28.3 pg (27.0-31.0); MEAN CORPUSCULAR HGB CONC 33.4 g/dL (33.0-37.0); MEAN PLATELET VOLUME 11.1 fl (7.2-11.7); MONO # 0.4 K/uL (0.0-0.8); MONO % 9.8 % (0.0-10.0); NEUT # 2.1 K/uL (1.8-7.0); NEUT % 49.6 % (50.0-75.0); NRBC % 0.1 % (0.0-0.0); RBC 4.21 Mil/uL (4.40-5.90); WHITE BLOOD COUNT 4.1 K/uL (4.8-10.8)
[2018-02-01 19:05] LABS: PROTHROMBIN TIME 11.5 Seconds (9.8-13.1)
--- NOTE | 2018-02-01 19:07 | ED PDOC ---
HPI: Abdomen Time Seen by Provider: 02/01/18 17:08 Chief Complaint (Nursing): Abdominal Pain Chief Complaint (Provider): Abdominal Pain History Per: Family History/Exam Limitations: clinical condition (dementia) Onset/Duration Of Symptoms: Days (x2) Current Symptoms Are (Timing): Still Present Additional Complaint(s): 87 year old male with pmHx of dementia, arrives to ED with family for an evaluation of diffuse abdominal pain associated with decreased appetite ongoing for 2 days. Patient was recently seen for similar symptoms with admission for gallstones, pancreatitis and cholecystitis on 01/13/18. Patient responded well to IV ABX and advised to remove gallbladder, however, patient declined surgery at the time. No reports of nausea, vomiting, diarrhea, constipation, black or bloody stools. PMD: Dr. Kevin Hylton Past Medical History Reviewed: Historical Data, Nursing Documentation, Vital Signs Vital Signs: Last Vital Signs Temp 97.8 F 02/03/18 08:24 Pulse 60 02/03/18 08:24 Resp 18 02/03/18 08:24 BP 147/62 02/03/18 08:24 Pulse Ox 99 02/03/18 08:24 - Medical History PMH: Arthritis, Asthma, Benign Prostatic Hyperplasia, Depression, Diabetes, HTN , Hypercholesterolemia, Hyperlipidemia, Parkinson's Disease, Pneumonia Denies: Anemia, CHF, COPD, HIV, Hypothyroidism, Chronic Kidney Disease, Rheumatoid Arthritis Other PMH: gout, prostate disease - Surgical History Surgical History: Appendectomy, Cholecystectomy, Coronary Stent, Hernia Repair ( x2) Other surgeries: prostate - Family History Family History: States: Unknown Family Hx - Social History Current smoker - smoking cessation education provided: No Alcohol: None Drugs: Denies - Home Medications Home Medications: Ambulatory Orders Medication Instructions Recorded Simvastatin 20 mg PO DAILY 10/06/15 Valsartan/Hydrochlorothiazide 1 tab PO DAILY 08/01/16 [Valsartan-Hctz 80-12.5 mg Tab] Allopurinol [Zyloprim] 100 mg PO DAILY 11/30/16 Montelukast Sodium [Singulair] 10 mg PO HS 11/30/16 Pantoprazole [Protonix EC Tab] 40 mg PO DAILY #30 ect 02/01/17 Aspirin [Ecotrin] 81 mg PO DAILY #30 02/05/17 Docusate [Colace] 100 mg PO BID 01/14/18 Ergocalciferol [Drisdol 50,000 1 cap PO QWK 01/14/18 Intl Units Cap] Memantine [Namenda] 5 mg PO DAILY 01/14/18 Sucralfate [Carafate Tab] 1 gm PO Q6 PRN 01/14/18 Venlafaxine [Effexor XR] 1 tab PO DAILY 01/14/18 traMADol [Ultram] 1 tab Q12 PRN 01/14/18 amLODIPine [Norvasc] 5 mg PO DAILY #30 tab 01/17/18 - Allergies Allergies/Adverse Reactions: Allergies Allergy/AdvReac Type Severity Reaction Status Date / Time No Known Allergies Allergy Verified 02/01/18 17:02 Review of Systems ROS Statement: Except As Marked, All Systems Reviewed And Found Negative Gastrointestinal: Positive for: Abdominal Pain, Other (decreased appetite). Negative for: Nausea, Vomiting, Diarrhea, Constipation, Melena, Hematochezia Physical Exam - Reviewed Nursing Documentation Reviewed: Yes Vital Signs Reviewed: Yes - Physical Exam Appears: Positive for: In Acute Distress (mildly painful) Head Exam: Positive for: ATRAUMATIC, NORMOCEPHALIC Skin: Positive for: Warm, Dry, Pallor Eye Exam: Positive for: EOMI, PERRL ENT: Negative for: Pharyngeal Erythema, Tonsillar Exudate Neck: Positive for: Painless ROM, Supple Cardiovascular/Chest: Positive for: Regular Rate, Rhythm. Negative for: Murmur Respiratory: Positive for: Normal Breath Sounds. Negative for: Wheezing, Respiratory Distress Gastrointestinal/Abdominal: Positive for: Bowel Sounds (hyperactive), Tenderness (diffuse (-)localized or palpable). Negative for: Mass, Guarding, Rebound, Other ((-) McBurney's point; (-) Van's sign) Back: Positive for: Normal Inspection. Negative for: Decreased ROM Extremity: Positive for: Normal ROM. Negative for: Deformity Neurologic/Psych: Positive for: Mood/Affect (tired). Negative for: Motor/ Sensory Deficits - Laboratory Results Result Diagrams: 02/02/18 06:05 02/02/18 06:05 - ECG O2 Sat by Pulse Oximetry: 96 (RA) Pulse Ox Interpretation: Normal Medical Decision Making Medical Decision Making: Initial Impression: Abdominal pain Differential includes but not limited to: cholithisthis, pancreatitis, enteritis , colitis, gastritis Initial Plan: * Type and screen * EKG * Amylase * CMP * Lact acid, plasma * LDH * Lipase * Magnesium * Phosphorous * Troponin I * Urine dipstick * CBC * PTT * PT * Blood culture * US ABD --------- Time: 2020 --US ABD FINDINGS: Liver: Heterogeneous echotexture. Measures 14.4 cm. Gallbladder: Sludge and cholelithiasis. Gallbladder wall measures 6 mm in thickness No gallstones. Common bile duct: Measures 4 mm. Pancreas: Unremarkable as visualized. Kidneys: Unremarkable. No stones. No hydronephrosis. Spleen: Unremarkable. No splenomegaly. Aorta: Unremarkable. No aneurysm. Inferior vena cava: Unremarkable. IMPRESSION: Sludge and cholelithiasis in the gallbladder. Mild gallbladder wall thickening. As per the technologist note, sonographic Van sign is negative. LAURA Cerda Surgery resident who advised consult with Dr iPres and LAURA Smith who was primary on recent previous hospitalization (medical service at that time.) Scribe Attestation: Documented by Rebekah Lacy, acting as a scribe for Eli Linda MD. Provider Scribe Attestation: All medical record entries made by the Scribe were at my direction and personally dictated by me. I have reviewed the chart and agree that the record accurately reflects my personal performance of the history, physical exam, medical decision making, and the department course for this patient. I have also personally directed, reviewed, and agree with the discharge instructions and disposition. Disposition - Clinical Impression Clinical Impression: Abdominal pain, Cholelithiasis Counseled Patient/Family Regarding: Studies Performed, Diagnosis - Disposition Disposition Time: 20:00 Condition: FAIR - Pt Status Changed To: Hospital Disposition Of: Inpatient - Admit Certification Admit to Inpatient:: After my assessment, the patient will require hospitalization for at least two midnights. This is because of the severity of symptoms shown, intensity of services needed, and/or the medical risk in this patient being treated as an outpatient. - POA Present On Arrival: None
[2018-02-01 19:11] LABS: PARTIAL THROMBOPLASTIN TIME 31.6 Seconds (25.6-37.1)
[2018-02-01 19:17] LABS: ALB/GLOB RATIO 1.2 (1.0-2.1); ALBUMIN 3.3 g/dL (3.5-5.0); ALT/SGPT 44 U/L (21-72); AMYLASE 77 U/L (30-110); AST/SGOT 42 U/L (17-59); BLOOD UREA NITROGEN 16 mg/dl (9-20); CALCIUM 8.5 mg/dL (8.4-10.2); GFR AFRICAN-AMERICAN > 60; GFR NON-AFRICAN AMERICAN > 60; LIPASE 59 U/L (23-300)
--- NOTE | 2018-02-01 21:32 | CP.PCM.CON ---
History of Present Illness - History of Present Illness History of Present Illness: General Surgery Dr. Pires 87 y/o m w/ PMHx of HTN, HLD, Asthma presents to the ED c/o abd pain. Pt was recently discharged from [facility] after resolution of gallstone pancreatits. Family at bedside assisting w/ translation. Per son, pt reports return of RUQ abd pain x24hrs. Pain started overnight, self-resolved, then again started this afternoon ~3pm. Pain similar to that felt during previous admission earlier this month. Pt denies F/C, CP, SOB, N/V, D/C, dysuria. Abd US performed in ED shows gallstones w/ mild GB wall edema but no pericholecystic fluid or sonographic Van's sign. PMHx: DM, gout, PVD, bradycardia, BPH, Parkinson's dementia, depression, chronic low back pain, gastritis Meds: reviewed in chart NKDA PSHx: Hemorrhoidectomy, appendectomy, PCI w/stents SHx: Denies EtOH, tobacco, drug use FHx: noncontributory Review of Systems - Review of Systems All systems: reviewed and no additional remarkable complaints except (see HPI) Past Patient History - Infectious Disease Hx of Infectious Diseases: None - Tetanus Immunizations Tetanus Immunization: Unknown - Past Medical History & Family History Past Medical History?: Yes - Past Social History Alcohol: None Drugs: Denies - CARDIAC Hx Congestive Heart Failure: No Hx Hypercholesterolemia: Yes Hx Hypertension: Yes - PULMONARY Hx Asthma: Yes Hx Chronic Obstructive Pulmonary Disease (COPD): No Hx Pneumonia: Yes - NEUROLOGICAL Hx Parkinson's Disease: Yes - HEENT Hx HEENT Problems: No - RENAL Hx Chronic Kidney Disease: No - ENDOCRINE/METABOLIC Hx Hypothyroidism: No - HEMATOLOGICAL/ONCOLOGICAL Hx Anemia: No Hx Human Immunodeficiency Virus (HIV): No - INTEGUMENTARY Hx Dermatological Problems: No - MUSCULOSKELETAL/RHEUMATOLOGICAL Hx Arthritis: Yes Hx Rheumatoid Arthritis: No - GASTROINTESTINAL Hx Gastrointestinal Disorders: No Hx Gall Bladder Disease: Yes Hx Gastritis: Yes Hx Hemorrhoids: Yes Hx Pancreatitis: Yes - GENITOURINARY/GYNECOLOGICAL Hx Genitourinary Disorders: Yes Hx Prostate Problems: Yes - PSYCHIATRIC Hx Depression: Yes - SURGICAL HISTORY Hx Appendectomy: Yes Hx Coronary Stent: Yes - ANESTHESIA Hx Anesthesia: Yes Hx Anesthesia Reactions: No Hx Malignant Hyperthermia: No Meds Allergies/Adverse Reactions: Allergies Allergy/AdvReac Type Severity Reaction Status Date / Time No Known Allergies Allergy Verified 02/01/18 17:02 - Medications Medications: Current Medications Acetaminophen (Tylenol 325mg Tab) 650 mg PO Q4 PRN PRN Reason: Pain, Mild (1-3) Albuterol/Ipratropium (Duoneb 3 Mg/0.5 Mg (3 Ml) Ud) 3 ml INH RQ6 LUCIO Hydromorphone HCl (Dilaudid) 0.5 mg IVP Q3 PRN PRN Reason: Pain, moderate (4-7) Physical Exam - Constitutional Appears: Non-toxic, No Acute Distress - Head Exam Head Exam: NORMAL INSPECTION - Eye Exam Eye Exam: Normal appearance - ENT Exam ENT Exam: Mucous Membranes Moist - Respiratory Exam Respiratory Exam: NORMAL BREATHING PATTERN. absent: Accessory Muscle Use, Respiratory Distress - Cardiovascular Exam Cardiovascular Exam: Bradycardia, REGULAR RHYTHM. absent: Tachycardia - GI/Abdominal Exam GI & Abdominal Exam: Hernia (umbilical), Soft, Tenderness (RUQ & suprapubic). absent: Distended, Firm, Guarding, Rebound, Rigid - Extremities Exam Extremities exam: Positive for: normal inspection - Neurological Exam Neurological exam: Alert - Psychiatric Exam Psychiatric exam: Normal Affect, Normal Mood - Skin Skin Exam: Dry, Intact, Normal Color, Warm Results - Vital Signs Recent Vital Signs: Last Vital Signs Temp 98.7 F 02/01/18 20:25 Pulse 58 L 02/01/18 20:25 Resp 15 02/01/18 20:25 BP 144/63 02/01/18 20:25 Pulse Ox 97 02/01/18 20:25 - Labs Result Diagrams: 02/01/18 18:39 02/01/18 18:39 Labs: Laboratory Results - last 24 hr 02/01/18 02/01/18 02/01/18 17:50 18:37 18:39 WBC 4.1 L RBC 4.21 L Hgb 11.9 L Hct 35.8 MCV 84.8 MCH 28.3 MCHC 33.4 RDW 15.0 H Plt Count 138 MPV 11.1 Neut % (Auto) 49.6 L Lymph % (Auto) 36.3 [place] % (Auto) 9.8 Eos % (Auto) 3.3 Baso % (Auto) 1.0 Neut # (Auto) 2.1 Lymph # (Auto) 1.5 [place] # (Auto) 0.4 Eos # (Auto) 0.1 Baso # (Auto) 0.0 PT INR APTT Sodium Potassium Chloride Carbon Dioxide Anion Gap BUN Creatinine Est GFR ( Amer) Est GFR (Non-Af Amer) Random Glucose Lactic Acid 0.8 Calcium Phosphorus Magnesium Total Bilirubin AST ALT Alkaline Phosphatase Lactate Dehydrogenase Troponin I Total Protein Albumin Globulin Albumin/Globulin Ratio Amylase Lipase Blood Type O POSITIVE Antibody Screen Negative BBK History Checked Patient has bt 02/01/18 02/01/18 18:39 18:39 WBC RBC Hgb Hct MCV MCH MCHC RDW Plt Count MPV Neut % (Auto) Lymph % (Auto) [place] % (Auto) Eos % (Auto) Baso % (Auto) Neut # (Auto) Lymph # (Auto) [place] # (Auto) Eos # (Auto) Baso # (Auto) PT 11.5 INR 1.0 APTT 31.6 Sodium 140 Potassium 3.8 Chloride 105 Carbon Dioxide 25 Anion Gap 14 BUN 16 Creatinine 0.8 Est GFR ( Amer) > 60 Est GFR (Non-Af Amer) > 60 Random Glucose 94 Lactic Acid Calcium 8.5 Phosphorus 3.3 Magnesium 2.1 Total Bilirubin 0.4 AST 42 ALT 44 Alkaline Phosphatase 55 Lactate Dehydrogenase 471 Troponin I 0.0170 Total Protein 6.1 L Albumin 3.3 L Globulin 2.8 Albumin/Globulin Ratio 1.2 Amylase 77 Lipase 59 Blood Type Antibody Screen BBK History Checked - Imaging and Cardiology US - abdomen Status: Image reviewed by me Assessment & Plan - Assessment and Plan (Free Text) Assessment: 87 y/o M w/ symptomatic cholelithiasis - pain management - CLD but NPO if pain returns/worsens - hold ASA for potential surgery vs procedure - f/u UA - f/u AM labs - pt would benefit from PTC vs cholecystecotmy - encourage OOB to chair/Amb/IS use - GI/DVT PPx Pt discussed w/ Dr. Pranay Cerda DO PGY3
[2018-02-01 22:08] LABS: URINE BACTERIA RARE (<OCC); URINE BILIRUBIN NEGATIVE (NEGATIVE); URINE BLOOD NEGATIVE (NEGATIVE); URINE CLARITY CLEAR (Clear); URINE COLOR STRAW (YELLOW); URINE GLUCOSE (UA) NEG (Normal); URINE LEUKOCYTE ESTERASE NEG Leu/uL (Negative); URINE PROTEIN NEGATIVE (NEGATIVE); URINE UROBILINOGEN 0.2-1.0 mg/dL (0.2-1.0)
[2018-02-01] MEDS ORDERED: Ergocalciferol 50,000 Intl Units Cap PO SCH (23:15)
[2018-02-01] MEDS: Dextrose 5%/Lactated Ringer's 1,000 ML IV SCH (23:45)
[2018-02-02] MEDS: Albuterol-Ipratrop 3 mg / 0.5 (3 ml) UD INH SCH ×3 (01:09→19:09)
[2018-02-02 06:30] LABS: HEMOGLOBIN 11.5 g/dL (12.0-18.0); MEAN CELL VOLUME 84.9 fl (80.0-94.0); MEAN CORPUSCULAR HEMOGLOBIN 28.1 pg (27.0-31.0); MEAN CORPUSCULAR HGB CONC 33.1 g/dL (33.0-37.0); RBC 4.08 Mil/uL (4.40-5.90); RED CELL DISTRIBUTION WIDTH 15.3 % (11.5-14.5); WHITE BLOOD COUNT 3.9 K/uL (4.8-10.8)
[2018-02-02 06:59] LABS: ALB/GLOB RATIO 1.1 (1.0-2.1); ALBUMIN 3.1 g/dL (3.5-5.0); ALT/SGPT 33 U/L (21-72); AST/SGOT 36 U/L (17-59); BLOOD UREA NITROGEN 15 mg/dl (9-20); CALCIUM 8.3 mg/dL (8.4-10.2); GFR AFRICAN-AMERICAN > 60; GFR NON-AFRICAN AMERICAN > 60
[2018-02-02] MEDS ORDERED: Patient's Own Med (Valsartan/Hydrochlorothiazide [Valsartan-Hctz 80-12.5 Mg Tab] 1 TAB) PO SCH (09:00)
[2018-02-02] MEDS ORDERED: Pantoprazole 40 mg EC Tab PO SCH (09:00)
--- NOTE | 2018-02-02 09:19 | CARD ---
APPROVED REPORT Date of service: 02/01/2018 EKG Measurement Heart [id number] ND 150P-5 [id number] <Conclusion> Sinus bradycardia Nonspecific ST abnormality Prolonged QT Abnormal ECG
[2018-02-02] MEDS: Venlafaxine 150 mg ER Cap PO SCH (10:03)
--- NOTE | 2018-02-02 11:13 | CP.PCM.PN ---
Subjective - Date & Time of Evaluation Date of Evaluation: 02/02/18 Time of Evaluation: 11:11 - Subjective Subjective: General surgery progress note for Dr. Rosa Maria Dee, PGY-2 Pt S & E at bedside at 1000 with son at bedside Pt reports continued RUQ ab pain, pt not able to answer questions appropriately. No current N & V, F & C. Afebrile over last 24H. Objective - Vital Signs/Intake and Output Vital Signs (last 24 hours): Temp Pulse Resp BP Pulse Ox 97.4 F L 50 L 20 166/68 H 97 02/02/18 08:34 02/02/18 10:04 02/02/18 08:34 02/02/18 10:04 02/02/18 08:34 - Medications Medications: Current Medications Acetaminophen (Tylenol 325mg Tab) 650 mg PO Q4 PRN PRN Reason: Pain, Mild (1-3) Albuterol/Ipratropium (Duoneb 3 Mg/0.5 Mg (3 Ml) Ud) 3 ml INH RQ6 [facility] Last Admin: 02/02/18 07:56 Dose: 3 ml Allopurinol (Zyloprim) 100 mg PO DAILY [facility] Last Admin: 02/02/18 10:05 Dose: 100 mg Amlodipine Besylate (Norvasc) 5 mg PO DAILY [facility] Last Admin: 02/02/18 10:04 Dose: 5 mg Aspirin (Ecotrin) 81 mg PO DAILY [facility] Last Admin: 02/02/18 10:03 Dose: 81 mg Atorvastatin Calcium (Lipitor) 10 mg PO DAILY [facility] Last Admin: 02/02/18 10:03 Dose: 10 mg Docusate Sodium (Colace) 100 mg PO BID [facility] Last Admin: 02/02/18 10:02 Dose: 100 mg Ergocalciferol (Drisdol 50,000 Intl Units Cap) 1 cap PO QWK [facility] Hydromorphone HCl (Dilaudid) 0.5 mg IVP Q3 PRN PRN Reason: Pain, moderate (4-7) Last Admin: 02/01/18 23:01 Dose: 0.5 mg Dextrose/Lactated Ringer's (Dextrose 5%/Lactated Ringer's) 1,000 mls @ 80 mls/ hr IV .[id number] [facility] Stop: 02/02/18 23:16 Last Admin: 02/01/18 23:45 Dose: 80 mls/hr Memantine (Namenda) 5 mg PO DAILY [facility] Last Admin: 02/02/18 10:04 Dose: 5 mg Montelukast Sodium (Singulair) 10 mg PO HS [facility] Pantoprazole Sodium (Protonix Inj) 40 mg IVP DAILY [facility] Last Admin: 02/02/18 10:04 Dose: 40 mg Sucralfate (Carafate Tab) 1 gm PO Q6 PRN PRN Reason: GI distress Tramadol HCl (Ultram) 50 mg PO Q12 PRN PRN Reason: Pain, severe (8-10) Last Admin: 02/02/18 07:09 Dose: 50 mg Venlafaxine HCl (Effexor Xr) 150 mg PO DAILY [facility] Last Admin: 02/02/18 10:03 Dose: 150 mg - Labs Labs: 02/02/18 06:05 02/02/18 06:05 PT 11.5 Seconds (9.8-13.1) 02/01/18 18:39 INR 1.0 02/01/18 18:39 APTT 31.6 Seconds (25.6-37.1) 02/01/18 18:39 - Constitutional Appears: Non-toxic, No Acute Distress - Head Exam Head Exam: ATRAUMATIC, NORMAL INSPECTION, NORMOCEPHALIC - Eye Exam Eye Exam: EOMI, Normal appearance - ENT Exam ENT Exam: Mucous Membranes Moist, Normal Exam - Neck Exam Neck Exam: Full ROM, Normal Inspection - Respiratory Exam Respiratory Exam: NORMAL BREATHING PATTERN - Cardiovascular Exam Cardiovascular Exam: REGULAR RHYTHM - GI/Abdominal Exam GI & Abdominal Exam: Guarding (RUQ), Soft, Tenderness (RUQ, epigastric). absent : Distended (obese), Firm - Extremities Exam Extremities Exam: Normal Inspection - Neurological Exam Neurological Exam: Alert, Awake. absent: Oriented x3 - Psychiatric Exam Psychiatric exam: Normal Affect, Normal Mood Additional comments: pt with baseline slurred Armenian - Skin Skin Exam: Dry, Intact, Normal Color, Warm Assessment and Plan - Assessment and Plan (Free Text) Assessment: 87M w/symptomatic cholelithiasis Plan: Pain control CLD NPO if pain worsens hold ASA for potential intervention U/A negative CMP WNL OOBTC Encourage IS use PT GI/DVT ppx Will need medical & cardiac clearance prior to surgical intervention Will DW attending Leila, PGY-2
[2018-02-02] MEDS: Dextrose 5%/Lactated Ringer's 1,000 ML IV SCH (13:07)
--- NOTE | 2018-02-02 14:39 | US ---
Date of service: 02/01/2018 HISTORY: Abdominal pain recent cholecystitis pancreatitis COMPARISON: 04/04/2015. TECHNIQUE: Sonographic evaluation of the abdomen. FINDINGS: LIVER: Measures 14.4 cm. Patent portal vein. Portal venous flow: Hepatopetal. Unremarkable echogenicity of the liver parenchyma. No mass. No intrahepatic bile duct dilatation. GALLBLADDER: Cholelithiasis. Negative study sonographic Van's sign. Sludge and gallbladder edema are present. COMMON BILE DUCT: Measures 4.3 mm. No stones. No dilatation. PANCREAS: Unremarkable as visualized. No mass. No ductal dilatation. RIGHT KIDNEY: Measures 3.7 x 11.8cm. Normal echogenicity. No calculus, mass, or hydronephrosis. LEFT KIDNEY: Measures 4.8 x 11.2cm. Normal echogenicity. No calculus, mass, or hydronephrosis. SPLEEN: Normal in size and contour. No mass. AORTA: No aneurysmal dilatation. IVC: Unremarkable. OTHER FINDINGS: None. IMPRESSION: Cholelithiasis, gallbladder wall edema. Suspicious findings for acute cholecystitis (negative sonographic Van's sign). Concordant results (preliminary interpretation) provided by [employer]. Procedure Completed: 19:13 Preliminary ([employer]) Report: Dictated and Authenticated: 20:21. Final Interpretation: 14:37 February 02, 2018.
--- NOTE | 2018-02-02 14:51 | CP.PCM.PCO ---
Physician Communication Note - Physician Communication Note Physician Communication Note: Plan for OR Wednesday AM for Lap efe. Med/Cardiac Clearance prior
--- NOTE | 2018-02-02 15:09 | CP.PCM.HP ---
History of Present Illness - History of Present Illness History of Present Illness: 87 yo M with PMH DM2, HLD, gout, BPH, Parkinson's, gastritis admitted to medsur floor for acute cholecystitis and cholelithiasis. He presented to ED c/ o sevre epigastric pain. Patient was recently seen for similar symptoms with admission for gallstones, pancreatitis and cholecystitis on 01/13/18. Patient responded well to IV Abx and advised to remove gallbladder, however, patient declined surgery at the time He denied GI upset, nausea, constipation, diarrhea, dysuria, melena. PMD: Dr. Kevin Hylton In ED: Afebrile, no leukocytosis. Adominal u/s: cholelithiasis, gallbladder wall edema, suspicious findings for acute cholecystitis. Lipase 59, T bili 0.4, AST 42, ALT 44 Past Surg Hx: Hemorrhoidectomy, appendectomy, hernia repair, angioplasty of lower extremities, PCI w/stents Social Hx: Denies ETOH use, hx of tobacco use, denies illicit drug use Fam hx: noncontributory Allergies: NKDA Seen this morning on rounds; no acute events since admission. No chest pain or SOB, but still continues to have epigastric abdominal pain. Present on Admission - Present on Admission Any Indicators Present on Admission: No Review of Systems - Review of Systems All systems: reviewed and no additional remarkable complaints except - Gastrointestinal Gastrointestinal: Abdominal Pain. absent: Nausea, Vomiting Past Patient History - Infectious Disease Hx of Infectious Diseases: None - Tetanus Immunizations Tetanus Immunization: Unknown - Past Medical History & Family History Past Medical History?: Yes - Past Social History Smoking Status: Former Smoker - CARDIAC Hx Cardiac Disorders: Yes Hx Congestive Heart Failure: No Hx Hypercholesterolemia: Yes Hx Hypertension: Yes - PULMONARY Hx Respiratory Disorders: Yes Hx Asthma: Yes Hx Chronic Obstructive Pulmonary Disease (COPD): No Hx Pneumonia: Yes - NEUROLOGICAL Hx Neurological Disorder: Yes Hx Parkinson's Disease: Yes - HEENT Hx HEENT Problems: Yes Other/Comment: has eye glasses but is not using it - RENAL Hx Chronic Kidney Disease: No - ENDOCRINE/METABOLIC Hx Endocrine Disorders: Yes Hx Diabetes Mellitus Type 2: Yes Hx Hypothyroidism: No - HEMATOLOGICAL/ONCOLOGICAL Hx Blood Disorders: No Hx Anemia: No Hx Human Immunodeficiency Virus (HIV): No - INTEGUMENTARY Hx Dermatological Problems: No - MUSCULOSKELETAL/RHEUMATOLOGICAL Hx Musculoskeletal Disorders: No Hx Falls: No - GASTROINTESTINAL Hx Gastrointestinal Disorders: Yes Hx Gall Bladder Disease: Yes Hx Gastritis: Yes Hx Hemorrhoids: Yes Hx Pancreatitis: Yes - GENITOURINARY/GYNECOLOGICAL Hx Genitourinary Disorders: Yes Hx Prostate Problems: Yes - PSYCHIATRIC Hx Psychophysiologic Disorder: No Hx Substance Use: No - SURGICAL HISTORY Hx Surgeries: Yes Hx Appendectomy: Yes Hx Coronary Stent: Yes - ANESTHESIA Hx Anesthesia: Yes Hx Anesthesia Reactions: No Hx Malignant Hyperthermia: No Meds Allergies/Adverse Reactions: Allergies Allergy/AdvReac Type Severity Reaction Status Date / Time No Known Allergies Allergy Verified 02/01/18 17:02 Physical Exam - Constitutional Appears: No Acute Distress - Head Exam Head Exam: ATRAUMATIC - Eye Exam Eye Exam: Normal appearance - ENT Exam ENT Exam: Mucous Membranes Moist - Respiratory Exam Respiratory Exam: NORMAL BREATHING PATTERN. absent: Wheezes - Cardiovascular Exam Cardiovascular Exam: REGULAR RHYTHM, +S1, +S2 - GI/Abdominal Exam GI & Abdominal Exam: Soft, Tenderness (epigastric , RUQ). absent: Rigid - Extremities Exam Extremities exam: Negative for: calf tenderness - Neurological Exam Neurological exam: Alert Results - Vital Signs Recent Vital Signs: Last Vital Signs Temp 97.4 F L 02/02/18 08:34 Pulse 50 L 02/02/18 10:04 Resp 20 02/02/18 08:34 BP 166/68 H 02/02/18 10:04 Pulse Ox 97 02/02/18 08:34 - Labs Result Diagrams: 02/02/18 06:05 02/02/18 06:05 Labs: Laboratory Results - last 24 hr 02/01/18 02/01/18 02/01/18 17:50 18:37 18:39 WBC 4.1 L RBC 4.21 L Hgb 11.9 L Hct 35.8 MCV 84.8 MCH 28.3 MCHC 33.4 RDW 15.0 H Plt Count 138 MPV 11.1 Neut % (Auto) 49.6 L Lymph % (Auto) 36.3 [place] % (Auto) 9.8 Eos % (Auto) 3.3 Baso % (Auto) 1.0 Neut # (Auto) 2.1 Lymph # (Auto) 1.5 [place] # (Auto) 0.4 Eos # (Auto) 0.1 Baso # (Auto) 0.0 PT INR APTT Sodium Potassium Chloride Carbon Dioxide Anion Gap BUN Creatinine Est GFR ( Amer) Est GFR (Non-Af Amer) Random Glucose Lactic Acid 0.8 Calcium Phosphorus Magnesium Total Bilirubin AST ALT Alkaline Phosphatase Lactate Dehydrogenase Troponin I Total Protein Albumin Globulin Albumin/Globulin Ratio Amylase Lipase Urine Color Urine Clarity Urine pH Ur Specific [place] Urine Protein Urine Glucose (UA) Urine Ketones Urine Blood Urine Nitrate Urine Bilirubin Urine Urobilinogen Ur Leukocyte Esterase Urine RBC (Auto) Urine Microscopic WBC Urine Bacteria Blood Type O POSITIVE Antibody Screen Negative BBK History Checked Patient has bt 02/01/18 02/01/18 02/01/18 18:39 18:39 21:54 WBC RBC Hgb Hct MCV MCH MCHC RDW Plt Count MPV Neut % (Auto) Lymph % (Auto) [place] % (Auto) Eos % (Auto) Baso % (Auto) Neut # (Auto) Lymph # (Auto) [place] # (Auto) Eos # (Auto) Baso # (Auto) PT 11.5 INR 1.0 APTT 31.6 Sodium 140 Potassium 3.8 Chloride 105 Carbon Dioxide 25 Anion Gap 14 BUN 16 Creatinine 0.8 Est GFR ( Amer) > 60 Est GFR (Non-Af Amer) > 60 Random Glucose 94 Lactic Acid Calcium 8.5 Phosphorus 3.3 Magnesium 2.1 Total Bilirubin 0.4 AST 42 ALT 44 Alkaline Phosphatase 55 Lactate Dehydrogenase 471 Troponin I 0.0170 Total Protein 6.1 L Albumin 3.3 L Globulin 2.8 Albumin/Globulin Ratio 1.2 Amylase 77 Lipase 59 Urine Color Straw Urine Clarity Clear Urine pH 7.0 Ur Specific [place] 1.006 Urine Protein Negative Urine Glucose (UA) Neg Urine Ketones Negative Urine Blood Negative Urine Nitrate Negative Urine Bilirubin Negative Urine Urobilinogen 0.2-1.0 Ur Leukocyte Esterase Neg Urine RBC (Auto) < 1 Urine Microscopic WBC < 1 Urine Bacteria Rare Blood Type Antibody Screen BBK History Checked 02/02/18 02/02/18 06:05 06:05 WBC 3.9 L RBC 4.08 L Hgb 11.5 L Hct 34.6 L MCV 84.9 MCH 28.1 MCHC 33.1 RDW 15.3 H Plt Count 134 MPV Neut % (Auto) Lymph % (Auto) [place] % (Auto) Eos % (Auto) Baso % (Auto) Neut # (Auto) Lymph # (Auto) [place] # (Auto) Eos # (Auto) Baso # (Auto) PT INR APTT Sodium 142 Potassium 3.6 Chloride 106 Carbon Dioxide 26 Anion Gap 14 BUN 15 Creatinine 0.8 Est GFR ( Amer) > 60 Est GFR (Non-Af Amer) > 60 Random Glucose 102 Lactic Acid Calcium 8.3 L Phosphorus 3.1 Magnesium 2.0 Total Bilirubin 0.7 AST 36 ALT 33 Alkaline Phosphatase 45 Lactate Dehydrogenase Troponin I Total Protein 5.7 L Albumin 3.1 L Globulin 2.7 Albumin/Globulin Ratio 1.1 Amylase Lipase Urine Color Urine Clarity Urine pH Ur Specific [place] Urine Protein Urine Glucose (UA) Urine Ketones Urine Blood Urine Nitrate Urine Bilirubin Urine Urobilinogen Ur Leukocyte Esterase Urine RBC (Auto) Urine Microscopic WBC Urine Bacteria Blood Type Antibody Screen BBK History Checked Assessment & Plan (1) Acute cholecystitis Status: Acute (2) Cholelithiasis Status: Chronic (3) Diabetes Status: Chronic - Assessment and Plan (Free Text) Plan: - Admitted to same day surgery center - Liquid diet, - Pain control - Consult - surgery and cardio for clearance - f/u CBC, CMP tomorrow - SCD
[2018-02-02] MEDS: HCTZ/Losartan 12.5/50 Tab PO SCH (17:08)
--- NOTE | 2018-02-02 17:45 | CP.PCM.CON ---
History of Present Illness - History of Present Illness History of Present Illness: I was asked to evaluate patient by Dr Smith. Patient is a 87 year old male with PMH HTN, nonobstructive CAD, hypercholesterolemia who presents with abdominal pain. The patient requires cholecystectomy. He denies chest pain or dyspnea. He is nauseous Review of Systems - Constitutional Constitutional: absent: As Per HPI, Anorexia, Chills, Daytime Sleepiness, Excessive Sweating, Fatigue, Fever, Frequent Falls, Headache, Increased Appetite , Lethargy, Malaise, Night Sweats, Snoring, Sleep Apnea, Weight Gain, Weight Loss, Weakness, Other - EENT Eyes: absent: As Per HPI, Blind Spots, Blurred Vision, Change in Vision, Decreased Night Vision, Diplopia, Discharge, Dry Eye, Exophthalmos, Floaters, Irritation, Itchy Eyes, Loss of Peripheral Vision, Pain, Photophobia, Requires Corrective Lenses, Sees Flashes, Spots in Vision, Tunnel Vision, Other Visual Disturbances, Loss of Vision, Other Ears: absent: As Per HPI, Decreased Hearing, Ear Discharge, Ear Pain, Tinnitus, Abnormal Hearing, Disequilibrium, Dizziness, Other Nose/Mouth/Throat: absent: As Per HPI, Epistaxis, Nasal Congestion, Nasal Discharge, Nasal Obstruction, Nasal Trauma, Nose Pain, Post Nasal Drip, Sinus Pain, Sinus Pressure, Bleeding Gums, Change in Voice, Dental Pain, Dry Mouth, Dysphagia, Halitosis, Hoarsness, Lip Swelling, Mouth Lesions, Mouth Pain, Odynophagia, Sore Throat, Throat Swelling, Tongue Swelling, Facial Pain, Neck Pain, Neck Mass, Other - Cardiovascular Cardiovascular: absent: As Per HPI, Acrocyanosis, Chest Pain, Chest Pain at Rest , Chest Pain with Activity, Claudication, Diaphoresis, Dyspnea, Dyspnea on Exertion, Edema, Irregular Heart Rhythm, Pain Radiating to Arm/Neck/Jaw, Leg Edema, Leg Ulcers, Lightheadedness, Orthopnea, Palpitations, Paroxysmal Nocturnal Dyspnea, Pedal Edema, Radiating Pain, Rapid Heart Rate, Slow Heart Rate, Syncope, Other - Respiratory Respiratory: absent: As Per HPI, Cough, Dyspnea, Hemoptysis, Dyspnea on Exertion , Wheezing, Snoring, Stridor, Pain on Inspiration, Chest Congestion, Excessive Mucous Production, Change in Mucous Color, Pain with Coughing, Other - Gastrointestinal Gastrointestinal: Abdominal Pain, Nausea, Vomiting - Genitourinary Genitourinary: absent: As Per HPI, Change in Urinary Stream, Difficulty Urinating, Dysuria, Flank Pain, Hematuria, Pyuria, Nocturia, Urinary Incontinence, Urinary Frequency, Urinary Hesitance, Urinary Urgency, Voiding Freq/Small Amts, Freq UTI, Hx Renal/Bladder Calculi, Hx /Renal Surgery, Bladder Distension, Other - Musculoskeletal Musculoskeletal: absent: As Per HPI, Abnormal Gait, Arthralgias, Atrophy, Back Pain, Deformity, Joint Swelling, Limited Range of Motion, Loss of Height, Muscle Cramps, Muscle Weakness, Myalgias, Neck Pain, Numbness, Radiating Pain into Limb, Stiffness, Tingling, Other - Integumentary Integumentary: absent: As Per HPI, Acne, Alopecia, Bleeding Lesions, Change in Hair, Change in Nails, Change in Pigmentation, Changing Lesions, Dry Skin, Erythema, Furuncle, Hirsutism, Lesions, New Lesions, Non-Healing Lesions, Photosensitivity, Pruritus, Rash, Skin Pain, Skin Ulcer, Sores, Striae, Swelling , Unusual Bruising, Wounds, Jaundice, Other - Neurological Neurological: absent: As Per HPI, Abnormal Gait, Abnormal Hearing, Abnormal Movements, Abnormal Speech, Behavioral Changes, Burning Sensations, Confusion, Convulsions, Disequilibrium, Dizziness, Numbness, Focal Weakness, Frequent Falls , Headaches, Lack of Coordination, Loss of Vision, Memory Loss, Paresthesias, Radicular Pain, Restless Legs, Sensory Deficit, Syncope, Tingling, Tremor, Vertigo, Weakness, Other Visual Disturbances, Other - Psychiatric Psychiatric: absent: As Per HPI, Abnormal Sleep Pattern, Anhedonia, Anxiety, Auditory Hallucinations, Behavioral Changes, Change in Appetite, Change in Libido, Confusion, Depression, Difficulty Concentrating, Hallucinations, Homicidal Ideation, Hopelessness, Irritability, Memory Loss, Mood Swings, Panic Attacks, Paranoia, Suicidal Ideation, Visual Hallucinations, Tactile Hallucinations, Other - Endocrine Endocrine: absent: As Per HPI, Change in Body Appearance, Change in Libido, Cold Intolorance, Deepening of Voice, Excessive Sweating, Fatigue, Flushing, Heat Intolorance, Increase in Ring/Shoe/Hat Size, Palpitations, Polydipsia, Polyphagia, Polyuria, Other - Hematologic/Lymphatic Hematologic: absent: As Per HPI, Easy Bleeding, Easy Bruising, Lymphadenopathy, Other Past Patient History - Infectious Disease Hx of Infectious Diseases: None - Tetanus Immunizations Tetanus Immunization: Unknown - Past Medical History & Family History Past Medical History?: Yes - Past Social History Smoking Status: Former Smoker - CARDIAC Hx Cardiac Disorders: Yes Hx Congestive Heart Failure: No Hx Hypercholesterolemia: Yes Hx Hypertension: Yes - PULMONARY Hx Respiratory Disorders: Yes Hx Asthma: Yes Hx Chronic Obstructive Pulmonary Disease (COPD): No Hx Pneumonia: Yes - NEUROLOGICAL Hx Neurological Disorder: Yes Hx Parkinson's Disease: Yes - HEENT Hx HEENT Problems: Yes Other/Comment: has eye glasses but is not using it - RENAL Hx Chronic Kidney Disease: No - ENDOCRINE/METABOLIC Hx Endocrine Disorders: Yes Hx Diabetes Mellitus Type 2: Yes Hx Hypothyroidism: No - HEMATOLOGICAL/ONCOLOGICAL Hx Blood Disorders: No Hx Anemia: No Hx Human Immunodeficiency Virus (HIV): No - INTEGUMENTARY Hx Dermatological Problems: No - MUSCULOSKELETAL/RHEUMATOLOGICAL Hx Musculoskeletal Disorders: No Hx Falls: No - GASTROINTESTINAL Hx Gastrointestinal Disorders: Yes Hx Gall Bladder Disease: Yes Hx Gastritis: Yes Hx Hemorrhoids: Yes Hx Pancreatitis: Yes - GENITOURINARY/GYNECOLOGICAL Hx Genitourinary Disorders: Yes Hx Prostate Problems: Yes - PSYCHIATRIC Hx Psychophysiologic Disorder: No Hx Substance Use: No - SURGICAL HISTORY Hx Surgeries: Yes Hx Appendectomy: Yes Hx Coronary Stent: Yes - ANESTHESIA Hx Anesthesia: Yes Hx Anesthesia Reactions: No Hx Malignant Hyperthermia: No Meds Allergies/Adverse Reactions: Allergies Allergy/AdvReac Type Severity Reaction Status Date / Time No Known Allergies Allergy Verified 02/01/18 17:02 - Medications Medications: Current Medications Acetaminophen (Tylenol 325mg Tab) 650 mg PO Q4 PRN PRN Reason: Pain, Mild (1-3) Albuterol/Ipratropium (Duoneb 3 Mg/0.5 Mg (3 Ml) Ud) 3 ml INH RQ6 [facility] Last Admin: 02/02/18 07:56 Dose: 3 ml Allopurinol (Zyloprim) 100 mg PO DAILY [facility] Last Admin: 02/02/18 10:05 Dose: 100 mg Amlodipine Besylate (Norvasc) 5 mg PO DAILY [facility] Last Admin: 02/02/18 10:04 Dose: 5 mg Aspirin (Ecotrin) 81 mg PO DAILY [facility] Last Admin: 02/02/18 10:03 Dose: 81 mg Atorvastatin Calcium (Lipitor) 10 mg PO DAILY [facility] Last Admin: 02/02/18 10:03 Dose: 10 mg Docusate Sodium (Colace) 100 mg PO BID [facility] Last Admin: 02/02/18 17:04 Dose: 100 mg Ergocalciferol (Drisdol 50,000 Intl Units Cap) 1 cap PO QWK [facility] HCTZ/Losartan Potassium (Hyzaar 12.5 Mg-50 Mg) 1 tab PO DAILY [facility] Last Admin: 02/02/18 17:08 Dose: 1 tab Hydromorphone HCl (Dilaudid) 0.5 mg IVP Q3 PRN PRN Reason: Pain, moderate (4-7) Last Admin: 02/01/18 23:01 Dose: 0.5 mg Dextrose/Lactated Ringer's (Dextrose 5%/Lactated Ringer's) 1,000 mls @ 80 mls/ hr IV .[id number] [facility] Stop: 02/02/18 23:16 Last Admin: 02/02/18 13:07 Dose: 80 mls/hr Memantine (Namenda) 5 mg PO DAILY [facility] Last Admin: 02/02/18 10:04 Dose: 5 mg Montelukast Sodium (Singulair) 10 mg PO HS [facility] Pantoprazole Sodium (Protonix Inj) 40 mg IVP DAILY [facility] Last Admin: 02/02/18 10:04 Dose: 40 mg Sucralfate (Carafate Tab) 1 gm PO Q6 PRN PRN Reason: GI distress Tramadol HCl (Ultram) 50 mg PO Q12 PRN PRN Reason: Pain, severe (8-10) Last Admin: 02/02/18 07:09 Dose: 50 mg Venlafaxine HCl (Effexor Xr) 150 mg PO DAILY [facility] Last Admin: 02/02/18 10:03 Dose: 150 mg Physical Exam - Constitutional Appears: Non-toxic - Head Exam Head Exam: NORMAL INSPECTION - Eye Exam Eye Exam: Normal appearance - ENT Exam ENT Exam: Mucous Membranes Moist - Neck Exam Neck exam: Positive for: Full Rom - Respiratory Exam Respiratory Exam: NORMAL BREATHING PATTERN - Cardiovascular Exam Cardiovascular Exam: REGULAR RHYTHM - GI/Abdominal Exam GI & Abdominal Exam: Diminished Bowel Sounds, Distended - Rectal Exam Rectal Exam: Deferred - Extremities Exam Extremities exam: Negative for: pedal edema - Back Exam Back exam: NORMAL INSPECTION - Neurological Exam Neurological exam: Alert, Oriented x3 - Psychiatric Exam Psychiatric exam: Normal Affect - Skin Skin Exam: Normal Color Results - Vital Signs Recent Vital Signs: Last Vital Signs Temp 97.9 F 02/02/18 16:17 Pulse 63 02/02/18 16:17 Resp 20 02/02/18 16:17 BP 159/61 H 02/02/18 16:17 Pulse Ox 95 02/02/18 16:17 - Labs Result Diagrams: 02/02/18 06:05 02/02/18 06:05 Labs: Laboratory Results - last 24 hr 02/01/18 02/01/18 02/01/18 17:50 18:37 18:39 WBC 4.1 L RBC 4.21 L Hgb 11.9 L Hct 35.8 MCV 84.8 MCH 28.3 MCHC 33.4 RDW 15.0 H Plt Count 138 MPV 11.1 Neut % (Auto) 49.6 L Lymph % (Auto) 36.3 [place] % (Auto) 9.8 Eos % (Auto) 3.3 Baso % (Auto) 1.0 Neut # (Auto) 2.1 Lymph # (Auto) 1.5 [place] # (Auto) 0.4 Eos # (Auto) 0.1 Baso # (Auto) 0.0 PT INR APTT Sodium Potassium Chloride Carbon Dioxide Anion Gap BUN Creatinine Est GFR ( Amer) Est GFR (Non-Af Amer) Random Glucose Lactic Acid 0.8 Calcium Phosphorus Magnesium Total Bilirubin AST ALT Alkaline Phosphatase Lactate Dehydrogenase Troponin I Total Protein Albumin Globulin Albumin/Globulin Ratio Amylase Lipase Urine Color Urine Clarity Urine pH Ur Specific [place] Urine Protein Urine Glucose (UA) Urine Ketones Urine Blood Urine Nitrate Urine Bilirubin Urine Urobilinogen Ur Leukocyte Esterase Urine RBC (Auto) Urine Microscopic WBC Urine Bacteria Blood Type O POSITIVE Antibody Screen Negative BBK History Checked Patient has bt 02/01/18 02/01/18 02/01/18 18:39 18:39 21:54 WBC RBC Hgb Hct MCV MCH MCHC RDW Plt Count MPV Neut % (Auto) Lymph % (Auto) [place] % (Auto) Eos % (Auto) Baso % (Auto) Neut # (Auto) Lymph # (Auto) [place] # (Auto) Eos # (Auto) Baso # (Auto) PT 11.5 INR 1.0 APTT 31.6 Sodium 140 Potassium 3.8 Chloride 105 Carbon Dioxide 25 Anion Gap 14 BUN 16 Creatinine 0.8 Est GFR ( Amer) > 60 Est GFR (Non-Af Amer) > 60 Random Glucose 94 Lactic Acid Calcium 8.5 Phosphorus 3.3 Magnesium 2.1 Total Bilirubin 0.4 AST 42 ALT 44 Alkaline Phosphatase 55 Lactate Dehydrogenase 471 Troponin I 0.0170 Total Protein 6.1 L Albumin 3.3 L Globulin 2.8 Albumin/Globulin Ratio 1.2 Amylase 77 Lipase 59 Urine Color Straw Urine Clarity Clear Urine pH 7.0 Ur Specific [place] 1.006 Urine Protein Negative Urine Glucose (UA) Neg Urine Ketones Negative Urine Blood Negative Urine Nitrate Negative Urine Bilirubin Negative Urine Urobilinogen 0.2-1.0 Ur Leukocyte Esterase Neg Urine RBC (Auto) < 1 Urine Microscopic WBC < 1 Urine Bacteria Rare Blood Type Antibody Screen BBK History Checked 02/02/18 02/02/18 06:05 06:05 WBC 3.9 L RBC 4.08 L Hgb 11.5 L Hct 34.6 L MCV 84.9 MCH 28.1 MCHC 33.1 RDW 15.3 H Plt Count 134 MPV Neut % (Auto) Lymph % (Auto) [place] % (Auto) Eos % (Auto) Baso % (Auto) Neut # (Auto) Lymph # (Auto) [place] # (Auto) Eos # (Auto) Baso # (Auto) PT INR APTT Sodium 142 Potassium 3.6 Chloride 106 Carbon Dioxide 26 Anion Gap 14 BUN 15 Creatinine 0.8 Est GFR ( Amer) > 60 Est GFR (Non-Af Amer) > 60 Random Glucose 102 Lactic Acid Calcium 8.3 L Phosphorus 3.1 Magnesium 2.0 Total Bilirubin 0.7 AST 36 ALT 33 Alkaline Phosphatase 45 Lactate Dehydrogenase Troponin I Total Protein 5.7 L Albumin 3.1 L Globulin 2.7 Albumin/Globulin Ratio 1.1 Amylase Lipase Urine Color Urine Clarity Urine pH Ur Specific [place] Urine Protein Urine Glucose (UA) Urine Ketones Urine Blood Urine Nitrate Urine Bilirubin Urine Urobilinogen Ur Leukocyte Esterase Urine RBC (Auto) Urine Microscopic WBC Urine Bacteria Blood Type Antibody Screen BBK History Checked - EKG Data EKG Interpreted by: Myself EKG shows normal: Sinus rhythm Assessment & Plan (1) Acute cholecystitis Assessment and Plan: will need surgery. cardaic cath in 2017 reveasl nonobstructive CAD and normal left ventricular function. No cardiovascular contraindication to the planned surgery. Status: Acute (2) Bradycardia Assessment and Plan: vagal response due to vomiting Status: Acute (3) Hypertension Assessment and Plan: blood pressure control Status: Acute
[2018-02-03] MEDS: Albuterol-Ipratrop 3 mg / 0.5 (3 ml) UD INH SCH ×4 (01:00→20:08)
--- NOTE | 2018-02-03 07:21 | CP.PCM.PN ---
Subjective - Date & Time of Evaluation Date of Evaluation: 02/03/18 Time of Evaluation: 07:17 - Subjective Subjective: General Surgery Dr. Pires Pt S&E @bedside. NAEO. Pt reports RUQ abd pain though controlled w/ meds. denies N/V, F/C. tolerating CLD. Objective - Vital Signs/Intake and Output Vital Signs (last 24 hours): Temp Pulse Resp BP Pulse Ox 98.3 F 71 19 153/56 H 96 02/03/18 00:12 02/03/18 00:12 02/03/18 00:12 02/03/18 00:12 02/03/18 00:12 Intake and Output: 02/03/18 02/03/18 06:59 18:59 Intake Total 1600 Output Total 850 Balance 750 - Medications Medications: Current Medications Acetaminophen (Tylenol 325mg Tab) 650 mg PO Q4 PRN PRN Reason: Pain, Mild (1-3) Albuterol/Ipratropium (Duoneb 3 Mg/0.5 Mg (3 Ml) Ud) 3 ml INH RQ6 [facility] Last Admin: 02/03/18 01:00 Dose: 3 ml Allopurinol (Zyloprim) 100 mg PO DAILY [facility] Last Admin: 02/02/18 10:05 Dose: 100 mg Amlodipine Besylate (Norvasc) 5 mg PO DAILY [facility] Last Admin: 02/02/18 10:04 Dose: 5 mg Aspirin (Ecotrin) 81 mg PO DAILY [facility] Last Admin: 02/02/18 10:03 Dose: 81 mg Atorvastatin Calcium (Lipitor) 10 mg PO DAILY [facility] Last Admin: 02/02/18 10:03 Dose: 10 mg Docusate Sodium (Colace) 100 mg PO BID [facility] Last Admin: 02/02/18 17:04 Dose: 100 mg Ergocalciferol (Drisdol 50,000 Intl Units Cap) 1 cap PO QWK [facility] HCTZ/Losartan Potassium (Hyzaar 12.5 Mg-50 Mg) 1 tab PO DAILY [facility] Last Admin: 02/02/18 17:08 Dose: 1 tab Hydromorphone HCl (Dilaudid) 0.5 mg IVP Q3 PRN PRN Reason: Pain, moderate (4-7) Last Admin: 02/01/18 23:01 Dose: 0.5 mg Memantine (Namenda) 5 mg PO DAILY [facility] Last Admin: 02/02/18 10:04 Dose: 5 mg Montelukast Sodium (Singulair) 10 mg PO HS [facility] Last Admin: 02/02/18 21:57 Dose: 10 mg Pantoprazole Sodium (Protonix Inj) 40 mg IVP DAILY [facility] Last Admin: 02/02/18 10:04 Dose: 40 mg Sucralfate (Carafate Tab) 1 gm PO Q6 PRN PRN Reason: GI distress Tramadol HCl (Ultram) 50 mg PO Q12 PRN PRN Reason: Pain, severe (8-10) Last Admin: 02/02/18 07:09 Dose: 50 mg Venlafaxine HCl (Effexor Xr) 150 mg PO DAILY [facility] Last Admin: 02/02/18 10:03 Dose: 150 mg - Labs Labs: 02/02/18 06:05 02/02/18 06:05 PT 11.5 Seconds (9.8-13.1) 02/01/18 18:39 INR 1.0 02/01/18 18:39 APTT 31.6 Seconds (25.6-37.1) 02/01/18 18:39 - Constitutional Appears: Non-toxic, No Acute Distress - Head Exam Head Exam: NORMAL INSPECTION - Eye Exam Eye Exam: Normal appearance - ENT Exam ENT Exam: Mucous Membranes Moist - Respiratory Exam Respiratory Exam: NORMAL BREATHING PATTERN. absent: Accessory Muscle Use, Respiratory Distress - Cardiovascular Exam Cardiovascular Exam: Bradycardia, REGULAR RHYTHM. absent: Tachycardia - GI/Abdominal Exam GI & Abdominal Exam: Soft, Tenderness (mild TTP RUQ). absent: Distended, Firm, Guarding, Rebound - Extremities Exam Extremities Exam: Normal Inspection - Neurological Exam Neurological Exam: Alert, Awake - Psychiatric Exam Psychiatric exam: Flat Affect, Normal Mood - Skin Skin Exam: Dry, Intact, Normal Color, Warm Assessment and Plan - Assessment and Plan (Free Text) Assessment: 87 y/o M w/ symptomatic cholelithiasis - cont CLD - cont pain management - anti-emetic - monitor vitals - OR booked for tomorrow, 02/04 - consent to be obtained from pt's son - encourage OOB to chair/Amb/IS use Pt discussed w/ Dr. Pranay Cerda DO PGY3
[2018-02-03] MEDS: HCTZ/Losartan 12.5/50 Tab PO SCH (08:21)
[2018-02-03] MEDS: Venlafaxine 150 mg ER Cap PO SCH (08:21)
[2018-02-03] MEDS: Piperacillin/Tazobact 3.375 GM in Sodium Chloride 0.9% 100 ML IVPB SCH ×3 (13:06→20:05)
--- NOTE | 2018-02-03 14:11 | CP.PCM.PN ---
Subjective - Date & Time of Evaluation Date of Evaluation: 02/03/18 Time of Evaluation: 10:00 - Subjective Subjective: Pt seen/examined at bedside with Dr. Smith. No acute events overnight; he is able to tolerate PO liquid diet. Still reports abdominal pain but is controlled with medications. Planned OR tomorrow for lap efe; received cardiac clearance from care associate. Blood cx positive for gram pos cocci. Objective - Vital Signs/Intake and Output Vital Signs (last 24 hours): Temp Pulse Resp BP Pulse Ox 97.8 F 60 18 147/62 99 02/03/18 08:24 02/03/18 08:24 02/03/18 08:24 02/03/18 08:24 02/03/18 08:24 Intake and Output: 02/03/18 02/03/18 06:59 18:59 Intake Total 1600 Output Total 850 Balance 750 - Medications Medications: Current Medications Acetaminophen (Tylenol 325mg Tab) 650 mg PO Q4 PRN PRN Reason: Pain, Mild (1-3) Albuterol/Ipratropium (Duoneb 3 Mg/0.5 Mg (3 Ml) Ud) 3 ml INH RQ6 [facility] Last Admin: 02/03/18 13:04 Dose: 3 ml Allopurinol (Zyloprim) 100 mg PO DAILY [facility] Last Admin: 02/03/18 08:22 Dose: 100 mg Amlodipine Besylate (Norvasc) 5 mg PO DAILY [facility] Last Admin: 02/03/18 08:22 Dose: 5 mg Atorvastatin Calcium (Lipitor) 10 mg PO DAILY [facility] Last Admin: 02/03/18 08:22 Dose: 10 mg Docusate Sodium (Colace) 100 mg PO BID [facility] Last Admin: 02/03/18 08:21 Dose: 100 mg Ergocalciferol (Drisdol 50,000 Intl Units Cap) 1 cap PO QWK [facility] HCTZ/Losartan Potassium (Hyzaar 12.5 Mg-50 Mg) 1 tab PO DAILY [facility] Last Admin: 02/03/18 08:21 Dose: 1 tab Hydromorphone HCl (Dilaudid) 0.5 mg IVP Q3 PRN PRN Reason: Pain, moderate (4-7) Last Admin: 02/01/18 23:01 Dose: 0.5 mg Vancomycin HCl 1 gm/ Sodium (Chloride) 250 mls @ 166.667 mls/hr IVPB Q12 [facility] PRN Reason: Protocol Last Admin: 02/03/18 09:52 Dose: 166.667 mls/hr Piperacillin Sod/Tazobactam (Sod 3.375 gm/ Sodium Chloride) 100 mls @ 100 mls/ hr IVPB Q6 [facility] PRN Reason: Protocol Last Admin: 02/03/18 13:06 Dose: 100 mls/hr Memantine (Namenda) 5 mg PO DAILY [facility] Last Admin: 02/03/18 08:22 Dose: 5 mg Montelukast Sodium (Singulair) 10 mg PO HS [facility] Last Admin: 02/02/18 21:57 Dose: 10 mg Pantoprazole Sodium (Protonix Inj) 40 mg IVP DAILY [facility] Last Admin: 02/03/18 08:22 Dose: 40 mg Sucralfate (Carafate Tab) 1 gm PO Q6 PRN PRN Reason: GI distress Tramadol HCl (Ultram) 50 mg PO Q12 PRN PRN Reason: Pain, severe (8-10) Last Admin: 02/03/18 13:55 Dose: 50 mg Venlafaxine HCl (Effexor Xr) 150 mg PO DAILY [facility] Last Admin: 02/03/18 08:21 Dose: 150 mg - Labs Labs: 02/02/18 06:05 02/02/18 06:05 PT 11.5 Seconds (9.8-13.1) 02/01/18 18:39 INR 1.0 02/01/18 18:39 APTT 31.6 Seconds (25.6-37.1) 02/01/18 18:39 - Constitutional Appears: No Acute Distress - Head Exam Head Exam: NORMOCEPHALIC - Eye Exam Eye Exam: Normal appearance - ENT Exam ENT Exam: Mucous Membranes Moist - Respiratory Exam Respiratory Exam: Clear to Ausculation Bilateral, NORMAL BREATHING PATTERN - Cardiovascular Exam Cardiovascular Exam: Bradycardia - GI/Abdominal Exam GI & Abdominal Exam: Soft, Tenderness (RUQ and epigastric), Normal Bowel Sounds - Extremities Exam Extremities Exam: Normal Inspection - Neurological Exam Neurological Exam: Alert, Awake - Skin Skin Exam: Normal Color, Warm Assessment and Plan (1) Acute cholecystitis Status: Acute (2) Cholelithiasis Status: Chronic (3) Diabetes Status: Chronic - Assessment and Plan (Free Text) Plan: - liquid diet today; NPO after midnight for planned OR tomorrow - Pain control - Consult - surgery - ID consult - positive blood cultures; started on zosyn and vancomycin empirically - home meds - f/u labs tomorrow - SCD - rest of plan as ordered
--- NOTE | 2018-02-03 18:58 | CP.PCM.PN ---
Subjective - Date & Time of Evaluation Date of Evaluation: 02/03/18 Time of Evaluation: 18:55 - Subjective Subjective: I D NOTE PATIENT EXAMINED,EMR REVIEWED ANTIBIOTICS IN PROGRESS Objective - Vital Signs/Intake and Output Vital Signs (last 24 hours): Temp Pulse Resp BP Pulse Ox 97.6 F 77 20 139/68 97 02/03/18 16:05 02/03/18 16:05 02/03/18 16:05 02/03/18 16:05 02/03/18 16:05 Intake and Output: 02/03/18 02/03/18 06:59 18:59 Intake Total 1600 Output Total 850 Balance 750 - Medications Medications: Current Medications Acetaminophen (Tylenol 325mg Tab) 650 mg PO Q4 PRN PRN Reason: Pain, Mild (1-3) Albuterol/Ipratropium (Duoneb 3 Mg/0.5 Mg (3 Ml) Ud) 3 ml INH RQ6 [facility] Last Admin: 02/03/18 13:04 Dose: 3 ml Allopurinol (Zyloprim) 100 mg PO DAILY [facility] Last Admin: 02/03/18 08:22 Dose: 100 mg Amlodipine Besylate (Norvasc) 5 mg PO DAILY [facility] Last Admin: 02/03/18 08:22 Dose: 5 mg Atorvastatin Calcium (Lipitor) 10 mg PO DAILY [facility] Last Admin: 02/03/18 08:22 Dose: 10 mg Docusate Sodium (Colace) 100 mg PO BID [facility] Last Admin: 02/03/18 16:25 Dose: 100 mg Ergocalciferol (Drisdol 50,000 Intl Units Cap) 1 cap PO QWK [facility] HCTZ/Losartan Potassium (Hyzaar 12.5 Mg-50 Mg) 1 tab PO DAILY [facility] Last Admin: 02/03/18 08:21 Dose: 1 tab Hydromorphone HCl (Dilaudid) 0.5 mg IVP Q3 PRN PRN Reason: Pain, moderate (4-7) Last Admin: 02/01/18 23:01 Dose: 0.5 mg Vancomycin HCl 1 gm/ Sodium (Chloride) 250 mls @ 166.667 mls/hr IVPB Q12 [facility] PRN Reason: Protocol Last Admin: 02/03/18 09:52 Dose: 166.667 mls/hr Dextrose/Lactated Ringer's (Dextrose 5%/Lactated Ringer's) 1,000 mls @ 80 mls/ hr IV .[id number] [facility] Stop: 02/04/18 17:38 Piperacillin Sod/Tazobactam (Sod 3.375 gm/ Sodium Chloride) 100 mls @ 100 mls/ hr IVPB 0300,0900,1500,2100 [facility] PRN Reason: Protocol Memantine (Namenda) 5 mg PO DAILY [facility] Last Admin: 02/03/18 08:22 Dose: 5 mg Montelukast Sodium (Singulair) 10 mg PO HS [facility] Last Admin: 02/02/18 21:57 Dose: 10 mg Pantoprazole Sodium (Protonix Inj) 40 mg IVP DAILY [facility] Last Admin: 02/03/18 08:22 Dose: 40 mg Sucralfate (Carafate Tab) 1 gm PO Q6 PRN PRN Reason: GI distress Tramadol HCl (Ultram) 50 mg PO Q12 PRN PRN Reason: Pain, severe (8-10) Last Admin: 02/03/18 13:55 Dose: 50 mg Venlafaxine HCl (Effexor Xr) 150 mg PO DAILY [facility] Last Admin: 02/03/18 08:21 Dose: 150 mg - Labs Labs: 02/02/18 06:05 02/02/18 06:05 PT 11.5 Seconds (9.8-13.1) 02/01/18 18:39 INR 1.0 02/01/18 18:39 APTT 31.6 Seconds (25.6-37.1) 02/01/18 18:39
[2018-02-04] MEDS: Albuterol-Ipratrop 3 mg / 0.5 (3 ml) UD INH SCH ×4 (01:05→19:37)
[2018-02-04] MEDS: Piperacillin/Tazobact 3.375 GM in Sodium Chloride 0.9% 100 ML IVPB SCH ×4 (02:18→20:44)
[2018-02-04] MEDS ORDERED: Dextrose 5%/Lactated Ringer's 1,000 ML IV SCH (06:00)
--- NOTE | 2018-02-04 06:09 | CON ---
Copied To: Sánchez Brewster MD Attending MD: Sánchez Brewster MD DATE: 02/03/2018 INFECTIOUS DISEASE CONSULTATION HISTORY OF PRESENT ILLNESS: The patient is an 87-year-old male with past medical history, which includes diabetes, BPH, Parkinson's, and gastritis and was recently admitted for cholecystitis and cholelithiasis. He received IV antibiotics at that time and refused to have surgery. He was in the emergency room yesterday with severe epigastric pain and some fever. The patient is alert, somewhat confused as he has some dementia. Liver function tests, AST is 42 and ALT is 44. Lipase is 59. PHYSICAL EXAMINATION: HEENT: Within normal limits. NECK: Supple. LUNGS: Decreased breath sounds bilaterally. HEART: Regular sinus rhythm. ABDOMEN: Positive tenderness in all quadrants as he jumps when I touch any part of his abdomen. He is holding a pillow over his abdomen when we press it. EXTREMITIES: No CCE. ASSESSMENT AND PLAN: The patient is going to be going to the operating room tomorrow for laparoscopic cholecystectomy and at present time agree with treatment, the vancomycin, as he had a positive blood culture for gram-positive cocci, which may have been a contaminant and would continue with Zosyn, which I will discuss with the resident in the morning. We would continue the treatment this way, and we will follow up postoperatively. Sánchez Brewster MD
[2018-02-04 06:16] LABS: HEMOGLOBIN 11.5 g/dL (12.0-18.0); MEAN CELL VOLUME 84.9 fl (80.0-94.0); MEAN CORPUSCULAR HEMOGLOBIN 28.2 pg (27.0-31.0); MEAN CORPUSCULAR HGB CONC 33.2 g/dL (33.0-37.0); RBC 4.09 Mil/uL (4.40-5.90); RED CELL DISTRIBUTION WIDTH 15.3 % (11.5-14.5); WHITE BLOOD COUNT 4.6 K/uL (4.8-10.8)
[2018-02-04 06:29] LABS: INR 1.1
[2018-02-04 06:31] LABS: PARTIAL THROMBOPLASTIN TIME 31.1 Seconds (25.6-37.1)
--- NOTE | 2018-02-04 07:53 | RAD ---
Date of service: 02/03/2018 HISTORY: pre-op COMPARISON: Portable chest 01/13/2018. FINDINGS: LUNGS: No acute alveolar infiltrate bilaterally. Linear atelectasis or fluid in the minor fissure is seen at the mid right chest laterally. Reticular markings and decreased at the inferior lung zones bilaterally. PLEURA: No significant pleural effusion identified, no pneumothorax apparent. CARDIOVASCULAR: Normal. OSSEOUS STRUCTURES: No significant abnormalities. VISUALIZED UPPER ABDOMEN: Normal. OTHER FINDINGS: None. IMPRESSION: Diminishing reticular changes bilateral inferior lung zones with trace minor fissure fluid or linear atelectasis identified in the mid right lung zone laterally.
[2018-02-04] MEDS: Venlafaxine 150 mg ER Cap PO SCH ×2 (08:09→10:56)
[2018-02-04 08:11] LABS: ALB/GLOB RATIO 1.2 (1.0-2.1); ALBUMIN 3.3 g/dL (3.5-5.0); ALT/SGPT 28 U/L (21-72); AST/SGOT 27 U/L (17-59); BLOOD UREA NITROGEN 6 mg/dl (9-20); CALCIUM 8.2 mg/dL (8.4-10.2); GFR AFRICAN-AMERICAN > 60; GFR NON-AFRICAN AMERICAN > 60
[2018-02-04] MEDS: HCTZ/Losartan 12.5/50 Tab PO SCH (08:21)
[2018-02-04] MEDS ORDERED: Rocuronium 10 mg/ml (5 ml) ONE (08:44)
[2018-02-04] MEDS ORDERED: Etomidate 20 mg/10ml Inj IV ONE (08:45)
[2018-02-04] MEDS ORDERED: Lidocaine 4% (Laryng-O-Jet) Kit MM ONE (08:45)
[2018-02-04] MEDS ORDERED: Neostigmine 1:1000 (1 mg/ml) Inj ONE (08:49)
[2018-02-04] MEDS ORDERED: Bupivacaine HCl 0.5% PF (30 ml) Inj ONE (09:00)
[2018-02-04] MEDS ORDERED: Iohexol 300 10 ML ONE (09:00)
[2018-02-04] MEDS ORDERED: Propofol 10 mg/ml Inj (20 ML) ONE (09:41)
--- NOTE | 2018-02-04 11:42 | CP.PCM.PN ---
Subjective - Date & Time of Evaluation Date of Evaluation: 02/04/18 Time of Evaluation: 11:39 - Subjective Subjective: General Surgery Dr. Pires Pt S&E @bedside this AM @7am. NAEO. no complaints. pain controlled w/ meds. denies F/C, N/V. NPO @[place] for OR today. Pt seen by Anesthesia; pt c/o SOB. found to have rales, possible fluid overload. STAT CXR ordered and OR rescheduled for Wednesday pending further medical workup. Objective - Vital Signs/Intake and Output Vital Signs (last 24 hours): Temp Pulse Resp BP Pulse Ox 97.6 F 61 20 159/68 H 95 02/04/18 10:42 02/04/18 10:42 02/04/18 10:42 02/04/18 10:56 02/04/18 10:42 - Medications Medications: Current Medications Acetaminophen (Tylenol 325mg Tab) 650 mg PO Q4 PRN PRN Reason: Pain, Mild (1-3) Albuterol/Ipratropium (Duoneb 3 Mg/0.5 Mg (3 Ml) Ud) 3 ml INH RQ6 [facility] Last Admin: 02/04/18 07:25 Dose: 3 ml Allopurinol (Zyloprim) 100 mg PO DAILY [facility] Last Admin: 02/04/18 10:57 Dose: 100 mg Amlodipine Besylate (Norvasc) 5 mg PO DAILY [facility] Last Admin: 02/04/18 10:56 Dose: 5 mg Atorvastatin Calcium (Lipitor) 10 mg PO DAILY [facility] Last Admin: 02/04/18 10:56 Dose: 10 mg Docusate Sodium (Colace) 100 mg PO BID [facility] Last Admin: 02/04/18 08:09 Dose: Not Given Ergocalciferol (Drisdol 50,000 Intl Units Cap) 1 cap PO QWK [facility] Furosemide (Lasix) 40 mg PO DAILY [facility] Last Admin: 02/04/18 10:56 Dose: 40 mg HCTZ/Losartan Potassium (Hyzaar 12.5 Mg-50 Mg) 1 tab PO DAILY [facility] Last Admin: 02/04/18 08:21 Dose: 1 tab Hydromorphone HCl (Dilaudid) 0.5 mg IVP Q3 PRN PRN Reason: Pain, moderate (4-7) Last Admin: 02/04/18 08:28 Dose: 0.5 mg Vancomycin HCl 1 gm/ Sodium (Chloride) 250 mls @ 166.667 mls/hr IVPB Q12 [facility] PRN Reason: Protocol Last Admin: 02/04/18 08:20 Dose: 166.667 mls/hr Piperacillin Sod/Tazobactam (Sod 3.375 gm/ Sodium Chloride) 100 mls @ 100 mls/ hr IVPB 0300,0900,1500,2100 [facility] PRN Reason: Protocol Last Admin: 02/04/18 08:20 Dose: 100 mls/hr Memantine (Namenda) 5 mg PO DAILY [facility] Last Admin: 02/04/18 09:04 Dose: 5 mg Montelukast Sodium (Singulair) 10 mg PO HS [facility] Last Admin: 02/03/18 21:17 Dose: 10 mg Pantoprazole Sodium (Protonix Inj) 40 mg IVP DAILY [facility] Last Admin: 02/04/18 08:21 Dose: 40 mg Sucralfate (Carafate Tab) 1 gm PO Q6 PRN PRN Reason: GI distress Tramadol HCl (Ultram) 50 mg PO Q12 PRN PRN Reason: Pain, severe (8-10) Last Admin: 02/03/18 13:55 Dose: 50 mg Venlafaxine HCl (Effexor Xr) 150 mg PO DAILY [facility] Last Admin: 02/04/18 10:56 Dose: 150 mg - Labs Labs: 02/04/18 05:50 02/04/18 05:50 PT 12.0 Seconds (9.8-13.1) 02/04/18 05:50 INR 1.1 02/04/18 05:50 APTT 31.1 Seconds (25.6-37.1) 02/04/18 05:50 - Constitutional Appears: Non-toxic, No Acute Distress - Head Exam Head Exam: NORMAL INSPECTION - Eye Exam Eye Exam: Normal appearance - ENT Exam ENT Exam: Mucous Membranes Moist - Respiratory Exam Respiratory Exam: NORMAL BREATHING PATTERN. absent: Accessory Muscle Use, Respiratory Distress - Cardiovascular Exam Cardiovascular Exam: REGULAR RHYTHM. absent: Bradycardia, Tachycardia - GI/Abdominal Exam GI & Abdominal Exam: Soft, Tenderness (RUQ TTP). absent: Distended, Guarding, Rebound - Extremities Exam Extremities Exam: Normal Inspection - Neurological Exam Neurological Exam: Alert, Awake - Psychiatric Exam Psychiatric exam: Flat Affect, Normal Mood - Skin Skin Exam: Dry, Intact, Normal Color, Warm Assessment and Plan - Assessment and Plan (Free Text) Assessment: 87 y/o M w/ symptomatic cholelithiasis - STAT CXR --> yisel hernandes lines, pulmonary congestion; official read pending - resume CLD - hold IVF - cont pain management - anti-emetic - monitor vitals - OR rescheduled for Wednesday pending further medical workup - consent in chart - encourage OOB to chair/Amb/IS use Pt discussed w/ Dr. Pranya Cerda DO PGY3
--- NOTE | 2018-02-04 12:51 | RAD ---
Date of service: 02/04/2018 HISTORY: pre op evaluation COMPARISON: 02/03/2018 TECHNIQUE: Chest PA and lateral FINDINGS: LUNGS: Right lower lobe infiltrate best seen on the lateral view. This appears represent a new/ acute finding. PLEURA: No significant pleural effusion identified. No pneumothorax apparent. CARDIOVASCULAR: Normal. OSSEOUS STRUCTURES: No significant abnormalities. VISUALIZED UPPER ABDOMEN: Normal. OTHER FINDINGS: None. IMPRESSION: Right lower lobe infiltrate suspicious for acute pneumonia.
--- NOTE | 2018-02-04 13:32 | CP.PCM.PN ---
Subjective - Date & Time of Evaluation Date of Evaluation: 02/04/18 Time of Evaluation: 13:30 - Subjective Subjective: Pt was seen and evaluated at bedside with Dr. Smith this am and later in the afternoon as well. He has no acute complaints, does not complain of difficulty breathing at these times. Was supposed to go to OR today for lap efe but while in holding c/o SOB; seen by anesthesiologist and found to have rales- sent for stat CXR; read as right lower lobe infiltrate, new finding suspicious for acute pneumonia. Objective - Vital Signs/Intake and Output Vital Signs (last 24 hours): Temp Pulse Resp BP Pulse Ox 97.6 F 61 20 141/62 95 02/04/18 10:42 02/04/18 13:18 02/04/18 10:42 02/04/18 13:18 02/04/18 10:42 - Medications Medications: Current Medications Acetaminophen (Tylenol 325mg Tab) 650 mg PO Q4 PRN PRN Reason: Pain, Mild (1-3) Albuterol/Ipratropium (Duoneb 3 Mg/0.5 Mg (3 Ml) Ud) 3 ml INH RQ6 [facility] Last Admin: 02/04/18 07:25 Dose: 3 ml Allopurinol (Zyloprim) 100 mg PO DAILY [facility] Last Admin: 02/04/18 10:57 Dose: 100 mg Amlodipine Besylate (Norvasc) 5 mg PO DAILY [facility] Last Admin: 02/04/18 10:56 Dose: 5 mg Atorvastatin Calcium (Lipitor) 10 mg PO DAILY [facility] Last Admin: 02/04/18 10:56 Dose: 10 mg Docusate Sodium (Colace) 100 mg PO BID [facility] Last Admin: 02/04/18 08:09 Dose: Not Given Ergocalciferol (Drisdol 50,000 Intl Units Cap) 1 cap PO QWK [facility] Furosemide (Lasix) 40 mg PO DAILY [facility] Last Admin: 02/04/18 10:56 Dose: 40 mg HCTZ/Losartan Potassium (Hyzaar 12.5 Mg-50 Mg) 1 tab PO DAILY [facility] Last Admin: 02/04/18 08:21 Dose: 1 tab Hydromorphone HCl (Dilaudid) 0.5 mg IVP Q3 PRN PRN Reason: Pain, moderate (4-7) Last Admin: 02/04/18 08:28 Dose: 0.5 mg Vancomycin HCl 1 gm/ Sodium (Chloride) 250 mls @ 166.667 mls/hr IVPB Q12 [facility] PRN Reason: Protocol Last Admin: 02/04/18 08:20 Dose: 166.667 mls/hr Piperacillin Sod/Tazobactam (Sod 3.375 gm/ Sodium Chloride) 100 mls @ 100 mls/ hr IVPB 0300,0900,1500,2100 [facility] PRN Reason: Protocol Last Admin: 02/04/18 08:20 Dose: 100 mls/hr Memantine (Namenda) 5 mg PO DAILY [facility] Last Admin: 02/04/18 09:04 Dose: 5 mg Montelukast Sodium (Singulair) 10 mg PO HS [facility] Last Admin: 02/03/18 21:17 Dose: 10 mg Pantoprazole Sodium (Protonix Inj) 40 mg IVP DAILY [facility] Last Admin: 02/04/18 08:21 Dose: 40 mg Sucralfate (Carafate Tab) 1 gm PO Q6 PRN PRN Reason: GI distress Tramadol HCl (Ultram) 50 mg PO Q12 PRN PRN Reason: Pain, severe (8-10) Last Admin: 02/03/18 13:55 Dose: 50 mg Venlafaxine HCl (Effexor Xr) 150 mg PO DAILY [facility] Last Admin: 02/04/18 10:56 Dose: 150 mg - Labs Labs: 02/04/18 05:50 02/04/18 05:50 PT 12.0 Seconds (9.8-13.1) 02/04/18 05:50 INR 1.1 02/04/18 05:50 APTT 31.1 Seconds (25.6-37.1) 02/04/18 05:50 - Constitutional Appears: Non-toxic, No Acute Distress - Head Exam Head Exam: NORMAL INSPECTION - Eye Exam Eye Exam: Normal appearance - ENT Exam ENT Exam: Mucous Membranes Moist - Respiratory Exam Respiratory Exam: NORMAL BREATHING PATTERN. absent: Wheezes, Respiratory Distress Additional comments: good air entry and air movement, some coarse sounds in right lower lobe auscultated posteriorly - Cardiovascular Exam Cardiovascular Exam: REGULAR RHYTHM, +S1, +S2 - GI/Abdominal Exam GI & Abdominal Exam: Soft, Tenderness (RUQ mild) - Extremities Exam Extremities Exam: Normal Inspection. absent: Calf Tenderness - Neurological Exam Neurological Exam: Alert, Awake - Skin Skin Exam: Normal Color, Warm Assessment and Plan (1) Acute cholecystitis Status: Acute (2) Cholelithiasis Status: Chronic (3) Diabetes Status: Chronic (4) Pneumonia Status: Acute - Assessment and Plan (Free Text) Plan: - check pro BNP, stop IV hydration, resume liquid diet - continue zosyn for PNA and positive blood cultures - ID on consult; pending new/further recs - gen surg - OR rescheduled for wednesday pending workup - encourage incentive spirometer use - scd - rest of plan as ordered
--- NOTE | 2018-02-04 19:02 | CP.PCM.PN ---
Subjective - Date & Time of Evaluation Date of Evaluation: 02/04/18 Time of Evaluation: 18:00 - Subjective Subjective: events noted. patient developed dyspnea. CXR shows new infiltrate Objective - Vital Signs/Intake and Output Vital Signs (last 24 hours): Temp Pulse Resp BP Pulse Ox 97.7 F 62 20 149/63 93 L 02/04/18 16:16 02/04/18 16:16 02/04/18 16:16 02/04/18 16:16 02/04/18 16:16 Intake and Output: 02/04/18 02/05/18 18:59 06:59 Intake Total 1210 Output Total 1100 Balance 110 - Medications Medications: Current Medications Acetaminophen (Tylenol 325mg Tab) 650 mg PO Q4 PRN PRN Reason: Pain, Mild (1-3) Albuterol/Ipratropium (Duoneb 3 Mg/0.5 Mg (3 Ml) Ud) 3 ml INH RQ6 [facility] Last Admin: 02/04/18 13:47 Dose: 3 ml Allopurinol (Zyloprim) 100 mg PO DAILY [facility] Last Admin: 02/04/18 10:57 Dose: 100 mg Amlodipine Besylate (Norvasc) 5 mg PO DAILY [facility] Last Admin: 02/04/18 10:56 Dose: 5 mg Atorvastatin Calcium (Lipitor) 10 mg PO DAILY [facility] Last Admin: 02/04/18 10:56 Dose: 10 mg Docusate Sodium (Colace) 100 mg PO BID [facility] Last Admin: 02/04/18 16:45 Dose: 100 mg Ergocalciferol (Drisdol 50,000 Intl Units Cap) 1 cap PO QWK [facility] Last Admin: 02/04/18 16:44 Dose: 1 cap HCTZ/Losartan Potassium (Hyzaar 12.5 Mg-50 Mg) 1 tab PO DAILY [facility] Last Admin: 02/04/18 08:21 Dose: 1 tab Heparin Sodium (Porcine) (Heparin) 5,000 units SC Q8 [facility] PRN Reason: Protocol Last Admin: 02/04/18 16:45 Dose: 5,000 units Hydromorphone HCl (Dilaudid) 0.5 mg IVP Q3 PRN PRN Reason: Pain, moderate (4-7) Last Admin: 02/04/18 08:28 Dose: 0.5 mg Vancomycin HCl 1 gm/ Sodium (Chloride) 250 mls @ 166.667 mls/hr IVPB Q12 [facility] PRN Reason: Protocol Last Admin: 02/04/18 08:20 Dose: 166.667 mls/hr Piperacillin Sod/Tazobactam (Sod 3.375 gm/ Sodium Chloride) 100 mls @ 100 mls/ hr IVPB 0300,0900,1500,2100 [facility] PRN Reason: Protocol Last Admin: 02/04/18 15:23 Dose: 100 mls/hr Memantine (Namenda) 5 mg PO DAILY [facility] Last Admin: 02/04/18 09:04 Dose: 5 mg Montelukast Sodium (Singulair) 10 mg PO HS [facility] Last Admin: 02/03/18 21:17 Dose: 10 mg Pantoprazole Sodium (Protonix Inj) 40 mg IVP DAILY [facility] Last Admin: 02/04/18 08:21 Dose: 40 mg Sucralfate (Carafate Tab) 1 gm PO Q6 PRN PRN Reason: GI distress Tramadol HCl (Ultram) 50 mg PO Q12 PRN PRN Reason: Pain, severe (8-10) Last Admin: 02/03/18 13:55 Dose: 50 mg Venlafaxine HCl (Effexor Xr) 150 mg PO DAILY [facility] Last Admin: 02/04/18 10:56 Dose: 150 mg - Labs Labs: 02/04/18 05:50 02/04/18 05:50 PT 12.0 Seconds (9.8-13.1) 02/04/18 05:50 INR 1.1 02/04/18 05:50 APTT 31.1 Seconds (25.6-37.1) 02/04/18 05:50 - Constitutional Appears: Non-toxic - Head Exam Head Exam: NORMAL INSPECTION - Eye Exam Eye Exam: Normal appearance - ENT Exam ENT Exam: Mucous Membranes Moist - Neck Exam Neck Exam: Full ROM - Respiratory Exam Respiratory Exam: Decreased Breath Sounds - Cardiovascular Exam Cardiovascular Exam: REGULAR RHYTHM - GI/Abdominal Exam GI & Abdominal Exam: Hypoactive Bowel Sounds - Rectal Exam Rectal Exam: Deferred - Extremities Exam Extremities Exam: absent: Pedal Edema - Back Exam Back Exam: NORMAL INSPECTION - Neurological Exam Neurological Exam: Alert - Psychiatric Exam Psychiatric exam: Normal Affect - Skin Skin Exam: Normal Color Assessment and Plan (1) Acute cholecystitis Assessment & Plan: no cardiac cause for the patient's symptoms. stable cardiac status Status: Acute (2) Bradycardia Status: Acute (3) Hypertension Assessment & Plan: blood pressure control Status: Acute
[2018-02-05] MEDS: Albuterol-Ipratrop 3 mg / 0.5 (3 ml) UD INH SCH ×6 (00:59→23:43)
[2018-02-05] MEDS: Piperacillin/Tazobact 3.375 GM in Sodium Chloride 0.9% 100 ML IVPB SCH ×4 (03:11→22:30)
--- NOTE | 2018-02-05 07:16 | CP.PCM.PN ---
Subjective - Date & Time of Evaluation Date of Evaluation: 02/05/18 Time of Evaluation: 07:15 - Subjective Subjective: General Surgery Dr. Pires Pt S&E @bedside. sleeping comfortably on rounds. no issues overnight per nursing. (-)N/V, F/C. pain well controlled. tolerating CLD. Objective - Vital Signs/Intake and Output Vital Signs (last 24 hours): Temp Pulse Resp BP Pulse Ox 97.8 F 65 19 139/59 L 96 02/05/18 00:17 02/05/18 00:17 02/05/18 00:17 02/05/18 00:17 02/05/18 00:17 - Medications Medications: Current Medications Acetaminophen (Tylenol 325mg Tab) 650 mg PO Q4 PRN PRN Reason: Pain, Mild (1-3) Albuterol/Ipratropium (Duoneb 3 Mg/0.5 Mg (3 Ml) Ud) 3 ml INH RQ4 [facility] Allopurinol (Zyloprim) 100 mg PO DAILY [facility] Last Admin: 02/04/18 10:57 Dose: 100 mg Amlodipine Besylate (Norvasc) 5 mg PO DAILY [facility] Last Admin: 02/04/18 10:56 Dose: 5 mg Atorvastatin Calcium (Lipitor) 10 mg PO DAILY [facility] Last Admin: 02/04/18 10:56 Dose: 10 mg Docusate Sodium (Colace) 100 mg PO BID [facility] Last Admin: 02/04/18 16:45 Dose: 100 mg Ergocalciferol (Drisdol 50,000 Intl Units Cap) 1 cap PO QWK [facility] Last Admin: 02/04/18 16:44 Dose: 1 cap HCTZ/Losartan Potassium (Hyzaar 12.5 Mg-50 Mg) 1 tab PO DAILY [facility] Last Admin: 02/04/18 08:21 Dose: 1 tab Heparin Sodium (Porcine) (Heparin) 5,000 units SC Q8 [facility] PRN Reason: Protocol Last Admin: 02/05/18 01:10 Dose: 5,000 units Hydromorphone HCl (Dilaudid) 0.5 mg IVP Q3 PRN PRN Reason: Pain, moderate (4-7) Last Admin: 02/04/18 08:28 Dose: 0.5 mg Vancomycin HCl 1 gm/ Sodium (Chloride) 250 mls @ 166.667 mls/hr IVPB Q12 [facility] PRN Reason: Protocol Last Admin: 02/04/18 21:59 Dose: 166.667 mls/hr Piperacillin Sod/Tazobactam (Sod 3.375 gm/ Sodium Chloride) 100 mls @ 100 mls/ hr IVPB 0300,0900,1500,2100 [facility] PRN Reason: Protocol Last Admin: 02/05/18 03:11 Dose: 100 mls/hr Memantine (Namenda) 5 mg PO DAILY [facility] Last Admin: 02/04/18 09:04 Dose: 5 mg Montelukast Sodium (Singulair) 10 mg PO HS [facility] Last Admin: 02/04/18 22:39 Dose: 10 mg Pantoprazole Sodium (Protonix Inj) 40 mg IVP DAILY [facility] Last Admin: 02/04/18 08:21 Dose: 40 mg Sucralfate (Carafate Tab) 1 gm PO Q6 PRN PRN Reason: GI distress Tramadol HCl (Ultram) 50 mg PO Q12 PRN PRN Reason: Pain, severe (8-10) Last Admin: 02/03/18 13:55 Dose: 50 mg Venlafaxine HCl (Effexor Xr) 150 mg PO DAILY [facility] Last Admin: 02/04/18 10:56 Dose: 150 mg - Labs Labs: 02/04/18 05:50 02/04/18 05:50 PT 12.0 Seconds (9.8-13.1) 02/04/18 05:50 INR 1.1 02/04/18 05:50 APTT 31.1 Seconds (25.6-37.1) 02/04/18 05:50 - Constitutional Appears: Non-toxic, No Acute Distress - Head Exam Head Exam: NORMAL INSPECTION - ENT Exam ENT Exam: Mucous Membranes Moist - Respiratory Exam Respiratory Exam: NORMAL BREATHING PATTERN. absent: Accessory Muscle Use, Respiratory Distress - Cardiovascular Exam Cardiovascular Exam: REGULAR RHYTHM. absent: Bradycardia, Tachycardia - GI/Abdominal Exam GI & Abdominal Exam: Soft. absent: Distended - Extremities Exam Extremities Exam: Normal Inspection - Neurological Exam Neurological Exam: absent: Awake (sleeping) - Psychiatric Exam Psychiatric exam: Flat Affect - Skin Skin Exam: Dry, Intact, Normal Color, Warm Assessment and Plan - Assessment and Plan (Free Text) Assessment: 87 y/o M w/ symptomatic cholelithiasis - cont CLD - hold IVF - cont pain management - anti-emetic - monitor UOP - monitor electrolytes, replace PRN - monitor vitals - OR rescheduled for Wednesday - encourage OOB to chair/Amb/IS use - PT/OT - GI/DVT PPx Pt discussed w/ Dr. Pranay Cerda DO PGY3
[2018-02-05] MEDS: Venlafaxine 150 mg ER Cap PO SCH (10:30)
[2018-02-05] MEDS: HCTZ/Losartan 12.5/50 Tab PO SCH (10:31)
[2018-02-06] MEDS: Piperacillin/Tazobact 3.375 GM in Sodium Chloride 0.9% 100 ML IVPB SCH ×4 (04:22→21:45)
[2018-02-06] MEDS: Albuterol-Ipratrop 3 mg / 0.5 (3 ml) UD INH SCH ×4 (08:15→19:08)
--- NOTE | 2018-02-06 08:30 | CP.PCM.PN ---
Subjective - Date & Time of Evaluation Date of Evaluation: 02/06/18 Time of Evaluation: 06:35 - Subjective Subjective: General Surgery Pt seen and examined. No acute events overnight. No new complaints. Aware of planned operation tomorrow. Objective - Vital Signs/Intake and Output Vital Signs (last 24 hours): Temp Pulse Resp BP Pulse Ox 97.9 F 61 18 159/72 H 94 L 02/06/18 07:43 02/06/18 07:43 02/06/18 07:43 02/06/18 07:43 02/06/18 07:43 - Medications Medications: Current Medications Acetaminophen (Tylenol 325mg Tab) 650 mg PO Q4 PRN PRN Reason: Pain, Mild (1-3) Albuterol/Ipratropium (Duoneb 3 Mg/0.5 Mg (3 Ml) Ud) 3 ml INH RQ4 [facility] Last Admin: 02/06/18 08:15 Dose: 3 ml Allopurinol (Zyloprim) 100 mg PO DAILY [facility] Last Admin: 02/05/18 10:35 Dose: 100 mg Amlodipine Besylate (Norvasc) 5 mg PO DAILY [facility] Last Admin: 02/05/18 10:32 Dose: 5 mg Atorvastatin Calcium (Lipitor) 10 mg PO DAILY [facility] Last Admin: 02/05/18 10:31 Dose: 10 mg Docusate Sodium (Colace) 100 mg PO BID [facility] Last Admin: 02/05/18 17:32 Dose: 100 mg Ergocalciferol (Drisdol 50,000 Intl Units Cap) 1 cap PO QWK [facility] Last Admin: 02/04/18 16:44 Dose: 1 cap HCTZ/Losartan Potassium (Hyzaar 12.5 Mg-50 Mg) 1 tab PO DAILY [facility] Last Admin: 02/05/18 10:31 Dose: 1 tab Heparin Sodium (Porcine) (Heparin) 5,000 units SC Q8 [facility] PRN Reason: Protocol Last Admin: 02/06/18 01:27 Dose: 5,000 units Hydromorphone HCl (Dilaudid) 0.5 mg IVP Q3 PRN PRN Reason: Pain, moderate (4-7) Last Admin: 02/04/18 08:28 Dose: 0.5 mg Vancomycin HCl 1 gm/ Sodium (Chloride) 250 mls @ 166.667 mls/hr IVPB Q12 [facility] PRN Reason: Protocol Last Admin: 02/05/18 21:00 Dose: 166.667 mls/hr Piperacillin Sod/Tazobactam (Sod 3.375 gm/ Sodium Chloride) 100 mls @ 100 mls/ hr IVPB Q6 [facility] PRN Reason: Protocol Last Admin: 02/06/18 04:22 Dose: 100 mls/hr Memantine (Namenda) 5 mg PO DAILY [facility] Last Admin: 02/05/18 10:31 Dose: 5 mg Montelukast Sodium (Singulair) 10 mg PO HS [facility] Last Admin: 02/05/18 21:28 Dose: 10 mg Pantoprazole Sodium (Protonix Inj) 40 mg IVP DAILY [facility] Last Admin: 02/05/18 10:32 Dose: 40 mg Sucralfate (Carafate Tab) 1 gm PO Q6 PRN PRN Reason: GI distress Tramadol HCl (Ultram) 50 mg PO Q12 PRN PRN Reason: Pain, severe (8-10) Last Admin: 02/03/18 13:55 Dose: 50 mg Venlafaxine HCl (Effexor Xr) 150 mg PO DAILY [facility] Last Admin: 02/05/18 10:30 Dose: 150 mg - Labs Labs: 02/04/18 05:50 02/04/18 05:50 PT 12.0 Seconds (9.8-13.1) 02/04/18 05:50 INR 1.1 02/04/18 05:50 APTT 31.1 Seconds (25.6-37.1) 02/04/18 05:50 - Constitutional Appears: Non-toxic, No Acute Distress - Head Exam Head Exam: ATRAUMATIC, NORMOCEPHALIC - Eye Exam Eye Exam: EOMI. absent: Scleral icterus - Respiratory Exam Respiratory Exam: NORMAL BREATHING PATTERN. absent: Respiratory Distress - GI/Abdominal Exam GI & Abdominal Exam: Soft, Tenderness (mild in RUQ, moderate in suprapubic area) . absent: Distended, Firm, Guarding, Rigid, Rebound - Extremities Exam Extremities Exam: absent: Calf Tenderness, Pedal Edema - Neurological Exam Neurological Exam: Alert, Awake - Skin Skin Exam: Dry, Warm Assessment and Plan - Assessment and Plan (Free Text) Assessment: 87M w/ symptomatic cholelithiasis Plan: - cont CLD, NPO p [place] - cont pain management - anti-emetic - monitor UOP - monitor electrolytes, replace PRN - monitor vitals - OR Wednesday 02/07 - encourage OOB to chair/Amb/IS use - PT/OT - GI/DVT PPx D/W Dr. Pranay Hightower PGY4
[2018-02-06] MEDS: Venlafaxine 150 mg ER Cap PO SCH (08:35)
[2018-02-06] MEDS: HCTZ/Losartan 12.5/50 Tab PO SCH (08:36)
--- NOTE | 2018-02-06 12:30 | CP.PCM.PN ---
Subjective - Date & Time of Evaluation Date of Evaluation: 02/06/18 Time of Evaluation: 12:25 - Subjective Subjective: I D NOTE CXR REVIEWED ZOSYN RENEWED FOR SURGERY Objective - Vital Signs/Intake and Output Vital Signs (last 24 hours): Temp Pulse Resp BP Pulse Ox 97.9 F 61 18 159/72 H 94 L 02/06/18 07:43 02/06/18 08:36 02/06/18 07:43 02/06/18 08:36 02/06/18 07:43 - Medications Medications: Current Medications Acetaminophen (Tylenol 325mg Tab) 650 mg PO Q4 PRN PRN Reason: Pain, Mild (1-3) Albuterol/Ipratropium (Duoneb 3 Mg/0.5 Mg (3 Ml) Ud) 3 ml INH RQ4 [facility] Last Admin: 02/06/18 12:13 Dose: 3 ml Allopurinol (Zyloprim) 100 mg PO DAILY [facility] Last Admin: 02/06/18 08:37 Dose: 100 mg Amlodipine Besylate (Norvasc) 5 mg PO DAILY [facility] Last Admin: 02/06/18 08:36 Dose: 5 mg Atorvastatin Calcium (Lipitor) 10 mg PO DAILY [facility] Last Admin: 02/06/18 08:36 Dose: 10 mg Docusate Sodium (Colace) 100 mg PO BID [facility] Last Admin: 02/06/18 08:33 Dose: 100 mg Ergocalciferol (Drisdol 50,000 Intl Units Cap) 1 cap PO QWK [facility] Last Admin: 02/04/18 16:44 Dose: 1 cap HCTZ/Losartan Potassium (Hyzaar 12.5 Mg-50 Mg) 1 tab PO DAILY [facility] Last Admin: 02/06/18 08:36 Dose: 1 tab Heparin Sodium (Porcine) (Heparin) 5,000 units SC Q8 [facility] PRN Reason: Protocol Last Admin: 02/06/18 08:35 Dose: 5,000 units Hydromorphone HCl (Dilaudid) 0.5 mg IVP Q3 PRN PRN Reason: Pain, moderate (4-7) Last Admin: 02/04/18 08:28 Dose: 0.5 mg Piperacillin Sod/Tazobactam (Sod 3.375 gm/ Sodium Chloride) 100 mls @ 100 mls/ hr IVPB Q6 [facility] PRN Reason: Protocol Last Admin: 02/06/18 10:59 Dose: 100 mls/hr Memantine (Namenda) 5 mg PO DAILY [facility] Last Admin: 02/06/18 08:36 Dose: 5 mg Montelukast Sodium (Singulair) 10 mg PO HS [facility] Last Admin: 02/05/18 21:28 Dose: 10 mg Pantoprazole Sodium (Protonix Inj) 40 mg IVP DAILY [facility] Last Admin: 02/06/18 08:36 Dose: 40 mg Sucralfate (Carafate Tab) 1 gm PO Q6 PRN PRN Reason: GI distress Tramadol HCl (Ultram) 50 mg PO Q12 PRN PRN Reason: Pain, severe (8-10) Last Admin: 02/03/18 13:55 Dose: 50 mg Venlafaxine HCl (Effexor Xr) 150 mg PO DAILY [facility] Last Admin: 02/06/18 08:35 Dose: 150 mg - Labs Labs: 02/04/18 05:50 02/04/18 05:50 PT 12.0 Seconds (9.8-13.1) 02/04/18 05:50 INR 1.1 02/04/18 05:50 APTT 31.1 Seconds (25.6-37.1) 02/04/18 05:50
--- NOTE | 2018-02-06 23:59 | CP.PCM.PN ---
Subjective - Date & Time of Evaluation Date of Evaluation: 02/05/18 Time of Evaluation: 10:00 - Subjective Subjective: Patient feels a lot better Has no cough No fever Noted to have right lower lobe infiltrate On Iv antibiotics Objective - Vital Signs/Intake and Output Vital Signs (last 24 hours): Temp Pulse Resp BP Pulse Ox 97.9 F 62 20 153/74 H 94 L 02/06/18 16:34 02/06/18 16:34 02/06/18 16:34 02/06/18 16:34 02/06/18 16:34 Intake and Output: 02/06/18 02/07/18 18:59 06:59 Intake Total 450 Output Total 600 Balance -150 - Medications Medications: Current Medications Acetaminophen (Tylenol 325mg Tab) 650 mg PO Q4 PRN PRN Reason: Pain, Mild (1-3) Albuterol/Ipratropium (Duoneb 3 Mg/0.5 Mg (3 Ml) Ud) 3 ml INH RQ4 [facility] Last Admin: 02/06/18 19:08 Dose: 3 ml Allopurinol (Zyloprim) 100 mg PO DAILY [facility] Last Admin: 02/06/18 08:37 Dose: 100 mg Amlodipine Besylate (Norvasc) 5 mg PO DAILY [facility] Last Admin: 02/06/18 08:36 Dose: 5 mg Atorvastatin Calcium (Lipitor) 10 mg PO DAILY [facility] Last Admin: 02/06/18 08:36 Dose: 10 mg Docusate Sodium (Colace) 100 mg PO BID [facility] Last Admin: 02/06/18 16:37 Dose: 100 mg Ergocalciferol (Drisdol 50,000 Intl Units Cap) 1 cap PO QWK [facility] Last Admin: 02/04/18 16:44 Dose: 1 cap HCTZ/Losartan Potassium (Hyzaar 12.5 Mg-50 Mg) 1 tab PO DAILY [facility] Last Admin: 02/06/18 08:36 Dose: 1 tab Heparin Sodium (Porcine) (Heparin) 5,000 units SC Q8 [facility] PRN Reason: Protocol Last Admin: 02/06/18 16:38 Dose: 5,000 units Hydromorphone HCl (Dilaudid) 0.5 mg IVP Q3 PRN PRN Reason: Pain, moderate (4-7) Last Admin: 02/04/18 08:28 Dose: 0.5 mg Piperacillin Sod/Tazobactam (Sod 3.375 gm/ Sodium Chloride) 100 mls @ 100 mls/ hr IVPB Q6 [facility] PRN Reason: Protocol Last Admin: 02/06/18 21:45 Dose: 100 mls/hr Memantine (Namenda) 5 mg PO DAILY [facility] Last Admin: 02/06/18 08:36 Dose: 5 mg Montelukast Sodium (Singulair) 10 mg PO HS [facility] Last Admin: 02/06/18 21:42 Dose: 10 mg Pantoprazole Sodium (Protonix Inj) 40 mg IVP DAILY [facility] Last Admin: 02/06/18 08:36 Dose: 40 mg Sucralfate (Carafate Tab) 1 gm PO Q6 PRN PRN Reason: GI distress Tramadol HCl (Ultram) 50 mg PO Q12 PRN PRN Reason: Pain, severe (8-10) Last Admin: 02/03/18 13:55 Dose: 50 mg Venlafaxine HCl (Effexor Xr) 150 mg PO DAILY [facility] Last Admin: 02/06/18 08:35 Dose: 150 mg - Labs Labs: 02/04/18 05:50 02/04/18 05:50 PT 12.0 Seconds (9.8-13.1) 02/04/18 05:50 INR 1.1 02/04/18 05:50 APTT 31.1 Seconds (25.6-37.1) 02/04/18 05:50 - Head Exam Head Exam: NORMAL INSPECTION - Eye Exam Eye Exam: Normal appearance - Respiratory Exam Respiratory Exam: NORMAL BREATHING PATTERN Additional comments: minimal crepitation right lower lobe - Cardiovascular Exam Cardiovascular Exam: REGULAR RHYTHM - GI/Abdominal Exam GI & Abdominal Exam: Normal Bowel Sounds - Neurological Exam Neurological Exam: Awake, Oriented x3 Assessment and Plan (1) Cholelithiasis Status: Chronic (2) Pneumonia Status: Acute (3) Hypertension Status: Acute - Assessment and Plan (Free Text) Plan: Cont meds Cont iv antibiotics cont tx
--- NOTE | 2018-02-07 00:04 | CP.PCM.PN ---
Subjective - Date & Time of Evaluation Date of Evaluation: 02/06/18 Time of Evaluation: 11:00 - Subjective Subjective: patient continues to be stable Has no fever Has no chest pain or SOB afebrile On Iv antibiotics Objective - Vital Signs/Intake and Output Vital Signs (last 24 hours): Temp Pulse Resp BP Pulse Ox 97.9 F 62 20 153/74 H 94 L 02/06/18 16:34 02/06/18 16:34 02/06/18 16:34 02/06/18 16:34 02/06/18 16:34 Intake and Output: 02/06/18 02/07/18 18:59 06:59 Intake Total 450 Output Total 600 Balance -150 - Medications Medications: Current Medications Acetaminophen (Tylenol 325mg Tab) 650 mg PO Q4 PRN PRN Reason: Pain, Mild (1-3) Albuterol/Ipratropium (Duoneb 3 Mg/0.5 Mg (3 Ml) Ud) 3 ml INH RQ4 [facility] Last Admin: 02/06/18 19:08 Dose: 3 ml Allopurinol (Zyloprim) 100 mg PO DAILY [facility] Last Admin: 02/06/18 08:37 Dose: 100 mg Amlodipine Besylate (Norvasc) 5 mg PO DAILY [facility] Last Admin: 02/06/18 08:36 Dose: 5 mg Atorvastatin Calcium (Lipitor) 10 mg PO DAILY [facility] Last Admin: 02/06/18 08:36 Dose: 10 mg Docusate Sodium (Colace) 100 mg PO BID [facility] Last Admin: 02/06/18 16:37 Dose: 100 mg Ergocalciferol (Drisdol 50,000 Intl Units Cap) 1 cap PO QWK [facility] Last Admin: 02/04/18 16:44 Dose: 1 cap HCTZ/Losartan Potassium (Hyzaar 12.5 Mg-50 Mg) 1 tab PO DAILY [facility] Last Admin: 02/06/18 08:36 Dose: 1 tab Heparin Sodium (Porcine) (Heparin) 5,000 units SC Q8 [facility] PRN Reason: Protocol Last Admin: 02/06/18 16:38 Dose: 5,000 units Hydromorphone HCl (Dilaudid) 0.5 mg IVP Q3 PRN PRN Reason: Pain, moderate (4-7) Last Admin: 02/04/18 08:28 Dose: 0.5 mg Piperacillin Sod/Tazobactam (Sod 3.375 gm/ Sodium Chloride) 100 mls @ 100 mls/ hr IVPB Q6 [facility] PRN Reason: Protocol Last Admin: 02/06/18 21:45 Dose: 100 mls/hr Memantine (Namenda) 5 mg PO DAILY [facility] Last Admin: 02/06/18 08:36 Dose: 5 mg Montelukast Sodium (Singulair) 10 mg PO HS [facility] Last Admin: 02/06/18 21:42 Dose: 10 mg Pantoprazole Sodium (Protonix Inj) 40 mg IVP DAILY [facility] Last Admin: 02/06/18 08:36 Dose: 40 mg Sucralfate (Carafate Tab) 1 gm PO Q6 PRN PRN Reason: GI distress Tramadol HCl (Ultram) 50 mg PO Q12 PRN PRN Reason: Pain, severe (8-10) Last Admin: 02/03/18 13:55 Dose: 50 mg Venlafaxine HCl (Effexor Xr) 150 mg PO DAILY [facility] Last Admin: 02/06/18 08:35 Dose: 150 mg - Labs Labs: 02/04/18 05:50 02/04/18 05:50 PT 12.0 Seconds (9.8-13.1) 02/04/18 05:50 INR 1.1 02/04/18 05:50 APTT 31.1 Seconds (25.6-37.1) 02/04/18 05:50 - Head Exam Head Exam: NORMAL INSPECTION - Eye Exam Eye Exam: Normal appearance - Respiratory Exam Respiratory Exam: NORMAL BREATHING PATTERN - Cardiovascular Exam Cardiovascular Exam: REGULAR RHYTHM - GI/Abdominal Exam GI & Abdominal Exam: Normal Bowel Sounds - Neurological Exam Neurological Exam: Awake Assessment and Plan (1) Cholelithiasis Status: Chronic (2) Pneumonia Status: Acute (3) Hypertension Status: Acute - Assessment and Plan (Free Text) Plan: Cont meds Con ttx Cont PT Iv antibiotics stable for surgery in am.
[2018-02-07] MEDS: Albuterol-Ipratrop 3 mg / 0.5 (3 ml) UD INH SCH ×7 (00:20→23:50)
[2018-02-07] MEDS: Piperacillin/Tazobact 3.375 GM in Sodium Chloride 0.9% 100 ML IVPB SCH ×3 (04:25→21:47)
[2018-02-07 07:00] LABS: BASO % 0.8 % (0.0-2.0); EOS # 0.2 K/uL (0.0-0.7); EOS % 2.6 % (0.0-4.0); HEMOGLOBIN 12.6 g/dL (12.0-18.0); LYMPH % 16.3 % (20.0-40.0); MEAN CELL VOLUME 85.2 fl (80.0-94.0); MEAN CORPUSCULAR HEMOGLOBIN 28.4 pg (27.0-31.0); MEAN CORPUSCULAR HGB CONC 33.3 g/dL (33.0-37.0); MEAN PLATELET VOLUME 10.2 fl (7.2-11.7); MONO # 0.5 K/uL (0.0-0.8); MONO % 9.1 % (0.0-10.0); NEUT # 4.3 K/uL (1.8-7.0); NEUT % 71.2 % (50.0-75.0); NRBC % 0.1 % (0.0-0.0); RBC 4.43 Mil/uL (4.40-5.90); RED CELL DISTRIBUTION WIDTH 15.2 % (11.5-14.5)
[2018-02-07 07:06] LABS: PARTIAL THROMBOPLASTIN TIME 36.3 Seconds (25.6-37.1)
[2018-02-07 07:10] LABS: INR 1.1; PROTHROMBIN TIME 11.9 Seconds (9.8-13.1)
[2018-02-07 07:13] LABS: ALB/GLOB RATIO 1.3 (1.0-2.1); ALBUMIN 3.6 g/dL (3.5-5.0); ALT/SGPT 23 U/L (21-72); AST/SGOT 27 U/L (17-59); BLOOD UREA NITROGEN 15 mg/dl (9-20); CALCIUM 8.6 mg/dL (8.4-10.2); GFR AFRICAN-AMERICAN > 60; GFR NON-AFRICAN AMERICAN > 60
[2018-02-07] MEDS: Venlafaxine 150 mg ER Cap PO SCH (08:38)
[2018-02-07] MEDS: HCTZ/Losartan 12.5/50 Tab PO SCH (08:50)
--- NOTE | 2018-02-07 08:51 | CP.PCM.CON ---
History of Present Illness - History of Present Illness History of Present Illness: 87 YR OLD MALE REFERRED FOR PULMONARY EVALUATION BECAUSE OF PNEUMONIA.HE IS SCHELUED FOR LAPAROSCOPIC CHOLECYSTECTOMY FOR SYMPTOMATIC CHOLECYSTITIS.HX OF BPH AND DEMENTIA.SON AT BEDSIDE[CASE DISCUSSED WITH HIM] NO HISTORY OF SMOKING/LUNG DISEASE CXR--PNEUMONIA R LUNG Past Patient History - Infectious Disease Hx of Infectious Diseases: None - Tetanus Immunizations Tetanus Immunization: Unknown - Past Medical History & Family History Past Medical History?: Yes - Past Social History Alcohol: None Drugs: Denies - CARDIAC Hx Congestive Heart Failure: No Hx Hypercholesterolemia: Yes Hx Hypertension: Yes - PULMONARY Hx Asthma: Yes Hx Chronic Obstructive Pulmonary Disease (COPD): No Hx Pneumonia: Yes - NEUROLOGICAL Hx Parkinson's Disease: Yes - HEENT Hx HEENT Problems: Yes Other/Comment: has eye glasses but is not using it - RENAL Hx Chronic Kidney Disease: No - ENDOCRINE/METABOLIC Hx Hypothyroidism: No - HEMATOLOGICAL/ONCOLOGICAL Hx Anemia: No Hx Human Immunodeficiency Virus (HIV): No - INTEGUMENTARY Hx Dermatological Problems: No - MUSCULOSKELETAL/RHEUMATOLOGICAL Hx Arthritis: Yes Hx Rheumatoid Arthritis: No - GASTROINTESTINAL Hx Gastrointestinal Disorders: Yes Hx Gall Bladder Disease: Yes Hx Gastritis: Yes Hx Hemorrhoids: Yes Hx Pancreatitis: Yes - GENITOURINARY/GYNECOLOGICAL Hx Genitourinary Disorders: Yes Hx Prostate Problems: Yes - PSYCHIATRIC Hx Depression: Yes - SURGICAL HISTORY Hx Appendectomy: Yes Hx Cholecystectomy: Yes Hx Coronary Stent: Yes - ANESTHESIA Hx Anesthesia: Yes Hx Anesthesia Reactions: No Hx Malignant Hyperthermia: No Meds Allergies/Adverse Reactions: Allergies Allergy/AdvReac Type Severity Reaction Status Date / Time No Known Allergies Allergy Verified 02/01/18 17:02 - Medications Medications: Current Medications Acetaminophen (Tylenol 325mg Tab) 650 mg PO Q4 PRN PRN Reason: Pain, Mild (1-3) Albuterol/Ipratropium (Duoneb 3 Mg/0.5 Mg (3 Ml) Ud) 3 ml INH RQ4 [facility] Last Admin: 02/07/18 07:52 Dose: 3 ml Allopurinol (Zyloprim) 100 mg PO DAILY [facility] Last Admin: 02/06/18 08:37 Dose: 100 mg Amlodipine Besylate (Norvasc) 5 mg PO DAILY [facility] Last Admin: 02/06/18 08:36 Dose: 5 mg Atorvastatin Calcium (Lipitor) 10 mg PO DAILY [facility] Last Admin: 02/06/18 08:36 Dose: 10 mg Docusate Sodium (Colace) 100 mg PO BID [facility] Last Admin: 02/06/18 16:37 Dose: 100 mg Ergocalciferol (Drisdol 50,000 Intl Units Cap) 1 cap PO QWK [facility] Last Admin: 02/04/18 16:44 Dose: 1 cap HCTZ/Losartan Potassium (Hyzaar 12.5 Mg-50 Mg) 1 tab PO DAILY [facility] Last Admin: 02/06/18 08:36 Dose: 1 tab Heparin Sodium (Porcine) (Heparin) 5,000 units SC Q8 [facility] PRN Reason: Protocol Last Admin: 02/06/18 16:38 Dose: 5,000 units Hydromorphone HCl (Dilaudid) 0.5 mg IVP Q3 PRN PRN Reason: Pain, moderate (4-7) Last Admin: 02/04/18 08:28 Dose: 0.5 mg Piperacillin Sod/Tazobactam (Sod 3.375 gm/ Sodium Chloride) 100 mls @ 100 mls/ hr IVPB Q6 [facility] PRN Reason: Protocol Last Admin: 02/07/18 04:25 Dose: 100 mls/hr Memantine (Namenda) 5 mg PO DAILY [facility] Last Admin: 02/06/18 08:36 Dose: 5 mg Montelukast Sodium (Singulair) 10 mg PO HS [facility] Last Admin: 02/06/18 21:42 Dose: 10 mg Pantoprazole Sodium (Protonix Inj) 40 mg IVP DAILY [facility] Last Admin: 02/06/18 08:36 Dose: 40 mg Sucralfate (Carafate Tab) 1 gm PO Q6 PRN PRN Reason: GI distress Tramadol HCl (Ultram) 50 mg PO Q12 PRN PRN Reason: Pain, severe (8-10) Last Admin: 02/03/18 13:55 Dose: 50 mg Venlafaxine HCl (Effexor Xr) 150 mg PO DAILY [facility] Last Admin: 02/06/18 08:35 Dose: 150 mg Physical Exam - Constitutional Appears: No Acute Distress - Head Exam Head Exam: ATRAUMATIC, NORMAL INSPECTION, NORMOCEPHALIC - Eye Exam Eye Exam: EOMI, Normal appearance, PERRL Pupil Exam: NORMAL ACCOMODATION, PERRL - ENT Exam ENT Exam: Mucous Membranes Moist, Normal Exam - Neck Exam Neck exam: Positive for: Normal Inspection - Respiratory Exam Respiratory Exam: Decreased Breath Sounds, Prolonged Expiratory Phase, Rales, NORMAL BREATHING PATTERN - Cardiovascular Exam Cardiovascular Exam: REGULAR RHYTHM - GI/Abdominal Exam GI & Abdominal Exam: Normal Bowel Sounds, Soft, Tenderness - Rectal Exam Rectal Exam: NORMAL INSPECTION - Extremities Exam Extremities exam: Positive for: normal inspection - Back Exam Back exam: NORMAL INSPECTION - Neurological Exam Neurological exam: Alert, CN II-XII Intact, Normal Gait, Oriented x3, Reflexes Normal - Psychiatric Exam Psychiatric exam: Normal Affect, Normal Mood - Skin Skin Exam: Dry, Intact, Normal Color, Warm Results - Vital Signs Recent Vital Signs: Last Vital Signs Temp 98.1 F 02/07/18 08:04 Pulse 69 02/07/18 08:04 Resp 20 02/07/18 08:04 BP 138/60 02/07/18 08:04 Pulse Ox 98 02/07/18 08:04 - Labs Result Diagrams: 02/07/18 05:36 02/07/18 05:36 Labs: Laboratory Results - last 24 hr 02/07/18 02/07/18 02/07/18 05:36 05:36 05:36 WBC 6.0 RBC 4.43 Hgb 12.6 Hct 37.7 MCV 85.2 MCH 28.4 MCHC 33.3 RDW 15.2 H Plt Count 144 MPV 10.2 Neut % (Auto) 71.2 Lymph % (Auto) 16.3 L [place] % (Auto) 9.1 Eos % (Auto) 2.6 Baso % (Auto) 0.8 Neut # (Auto) 4.3 Lymph # (Auto) 1.0 [place] # (Auto) 0.5 Eos # (Auto) 0.2 Baso # (Auto) 0.0 PT 11.9 INR 1.1 APTT 36.3 Sodium 142 Potassium 3.4 L Chloride 104 Carbon Dioxide 29 Anion Gap 12 BUN 15 Creatinine 1.0 Est GFR ( Amer) > 60 Est GFR (Non-Af Amer) > 60 Random Glucose 100 Calcium 8.6 Total Bilirubin 0.7 AST 27 ALT 23 Alkaline Phosphatase 60 Total Protein 6.4 Albumin 3.6 Globulin 2.8 Albumin/Globulin Ratio 1.3 Assessment & Plan - Assessment and Plan (Free Text) Assessment: PNEUMONIA R LUNG--PROBABLY COMMUNITY ACQUIRED[AGGRAVATED BY GALLBLADDER DZ] Plan: NO PULMONARY CONTRAINDICATION FOR GALLBLADDER SURGERY CLEARED FOR SURGERY FROM THE [facility] [place] CONTINUE IV ANTIBIOTICS RX SERIAL CXRS UNTIL PNEUMONIA COMPLETELY RESOLVES WILL FOLLOW WITH YOU - Date & Time Date: 02/04/18 Time: 08:55
[2018-02-07] MEDS ORDERED: Etomidate 20 mg/10ml Inj IV ONE (08:53)
[2018-02-07] MEDS ORDERED: Rocuronium 10 mg/ml (5 ml) ONE (08:53)
[2018-02-07] MEDS ORDERED: Succinylcholine 200 mg/10 ml Inj IV ONE (08:53)
[2018-02-07] MEDS ORDERED: Lidocaine 4% (Laryng-O-Jet) Kit MM ONE (08:53)
[2018-02-07] MEDS ORDERED: Neostigmine 1:1000 (1 mg/ml) Inj ONE (08:54)
[2018-02-07] MEDS ORDERED: Lidocaine 2% MPF (5 ml) Inj ONE ×2 (08:58→09:00)
[2018-02-07] MEDS ORDERED: Phenylephrine 10 mg/ml Inj ONE (08:58)
[2018-02-07] MEDS ORDERED: Bupivacaine HCl 0.25% PF (30 ml) Inj ONE (08:59)
[2018-02-07] MEDS ORDERED: Lactated Ringer's 1,000 ML IV ONE (09:12)
[2018-02-07] MEDS ORDERED: Piperacillin/Tazobact 3.375 gm Inj IVPB ONE (09:15)
[2018-02-07] MEDS ORDERED: ePHEDrine 50 mg/ml Inj ONE (09:49)
--- NOTE | 2018-02-07 11:14 | PCM.SURG1 ---
Surgeon's Initial Post Op Note - Surgeon's Notes Surgeon: Dr. Pires Billing Collections Specialist: Dr. Juares PGY4, Dr. Cerda PGY3 Type of Anesthesia: General Endo Pre-Operative Diagnosis: chronic cholecystitis Operative Findings: see dictation Post-Operative Diagnosis: same Operation Performed: laparoscopic cholecystectomy Specimen/Specimens Removed: gallbladder Estimated Blood Loss: EBL {In ML}: 10 Blood Products Given: N/A Drains Used: No Drains Post-Op Condition: Good Date of Surgery/Procedure: 02/07/18 Time of Surgery/Procedure: 11:13
[2018-02-07] MEDS: Lactated Ringer's 1,000 ML IV SCH ×2 (13:30→23:04)
[2018-02-07] MEDS: oxyCODONE 5 mg Immediate Release Tab PO PRN (16:42)
[2018-02-07] MEDS ORDERED: HYDROmorphone 0.5 mg/0.5 ml ISec IVP PRN (17:10)
[2018-02-08] MEDS: Piperacillin/Tazobact 3.375 GM in Sodium Chloride 0.9% 100 ML IVPB SCH ×4 (04:25→22:18)
[2018-02-08] MEDS: Albuterol-Ipratrop 3 mg / 0.5 (3 ml) UD INH SCH ×6 (04:52→23:36)
--- NOTE | 2018-02-08 07:31 | CP.PCM.PN ---
Subjective - Date & Time of Evaluation Date of Evaluation: 02/08/18 Time of Evaluation: 07:29 - Subjective Subjective: General Surgery Dr. Pires Pt S&E @bedside. Pt underwent lap efe yesterday. pt tolerated the procedure well w/ no complications. some N/V overnight 2/2 PO pain meds given w/o food. tolerating diet. abd pain improved. denies F/C, N/V. Objective - Vital Signs/Intake and Output Vital Signs (last 24 hours): Temp Pulse Resp BP Pulse Ox 98.7 F 70 19 157/63 H 96 02/08/18 00:00 02/08/18 00:00 02/08/18 00:00 02/08/18 00:00 02/08/18 00:00 - Medications Medications: Current Medications Acetaminophen (Tylenol 325mg Tab) 650 mg PO Q4 PRN PRN Reason: Pain, Mild (1-3) Albuterol/Ipratropium (Duoneb 3 Mg/0.5 Mg (3 Ml) Ud) 3 ml INH RQ4 [facility] Last Admin: 02/08/18 07:23 Dose: 3 ml Allopurinol (Zyloprim) 100 mg PO DAILY [facility] Last Admin: 02/07/18 08:47 Dose: Not Given Amlodipine Besylate (Norvasc) 5 mg PO DAILY [facility] Last Admin: 02/07/18 08:50 Dose: Not Given Atorvastatin Calcium (Lipitor) 10 mg PO DAILY [facility] Last Admin: 02/07/18 08:46 Dose: Not Given Docusate Sodium (Colace) 100 mg PO BID [facility] Last Admin: 02/07/18 16:41 Dose: 100 mg Ergocalciferol (Drisdol 50,000 Intl Units Cap) 1 cap PO QWK [facility] Last Admin: 02/04/18 16:44 Dose: 1 cap HCTZ/Losartan Potassium (Hyzaar 12.5 Mg-50 Mg) 1 tab PO DAILY [facility] Last Admin: 02/07/18 08:50 Dose: Not Given Heparin Sodium (Porcine) (Heparin) 5,000 units SC Q8 [facility] PRN Reason: Protocol Last Admin: 02/06/18 16:38 Dose: 5,000 units Hydromorphone HCl (Dilaudid) 0.5 mg IVP Q4H PRN PRN Reason: Pain, moderate (4-7) Piperacillin Sod/Tazobactam (Sod 3.375 gm/ Sodium Chloride) 100 mls @ 100 mls/ hr IVPB Q6 [facility] PRN Reason: Protocol Last Admin: 02/08/18 04:25 Dose: 100 mls/hr Lactated Ringer's (Lactated Ringer's) 1,000 mls @ 100 mls/hr IV .Q10H [facility] Last Admin: 02/07/18 23:04 Dose: 100 mls/hr Memantine (Namenda) 5 mg PO DAILY [facility] Last Admin: 02/07/18 08:49 Dose: 5 mg Montelukast Sodium (Singulair) 10 mg PO HS [facility] Last Admin: 02/07/18 21:46 Dose: 10 mg Ondansetron HCl (Zofran Inj) 4 mg IVP Q4 PRN PRN Reason: Nausea/Vomiting Last Admin: 02/07/18 17:27 Dose: 4 mg Oxycodone HCl (Oxycodone Immediate Release Tab) 5 mg PO Q6 PRN PRN Reason: Pain, moderate (4-7) Last Admin: 02/07/18 16:42 Dose: 5 mg Pantoprazole Sodium (Protonix Inj) 40 mg IVP DAILY [facility] Last Admin: 02/07/18 10:00 Dose: 40 mg Sucralfate (Carafate Tab) 1 gm PO Q6 PRN PRN Reason: GI distress Tramadol HCl (Ultram) 50 mg PO Q12 PRN PRN Reason: Pain, severe (8-10) Last Admin: 02/03/18 13:55 Dose: 50 mg Venlafaxine HCl (Effexor Xr) 150 mg PO DAILY [facility] Last Admin: 02/07/18 08:38 Dose: Not Given - Labs Labs: 02/07/18 05:36 02/07/18 05:36 PT 11.9 Seconds (9.8-13.1) 02/07/18 05:36 INR 1.1 02/07/18 05:36 APTT 36.3 Seconds (25.6-37.1) 02/07/18 05:36 - Constitutional Appears: Non-toxic, No Acute Distress - Head Exam Head Exam: NORMAL INSPECTION - Eye Exam Eye Exam: Normal appearance - ENT Exam ENT Exam: Mucous Membranes Moist - Respiratory Exam Respiratory Exam: NORMAL BREATHING PATTERN. absent: Accessory Muscle Use, Respiratory Distress - Cardiovascular Exam Cardiovascular Exam: REGULAR RHYTHM. absent: Bradycardia, Tachycardia - GI/Abdominal Exam GI & Abdominal Exam: Soft, Tenderness (supriya-incisional TTP). absent: Distended , Firm, Guarding, Rebound Additional comments: incisions c/d/i - Extremities Exam Extremities Exam: Normal Inspection - Neurological Exam Neurological Exam: Alert, Awake - Psychiatric Exam Psychiatric exam: Flat Affect, Normal Mood - Skin Skin Exam: Dry, Intact, Normal Color, Warm Assessment and Plan - Assessment and Plan (Free Text) Assessment: 87 y/o M POD #1 s/p lap efe - ADAT - cont pain management - PT/OT - encourage OOB to chair/Amb/valve use - GI/DVT PPx - pt cleared for discharge from surgical standpoint once tolerating soft diet. Pt discussed w/ Dr. Pranay Cerda DO PGY3
--- NOTE | 2018-02-08 08:35 | CP.PCM.PN ---
Subjective - Date & Time of Evaluation Date of Evaluation: 02/08/18 Time of Evaluation: 08:35 - Subjective Subjective: FEELS BETTER OOB TO CHAIR TOLERATING BREAKFAST Objective - Vital Signs/Intake and Output Vital Signs (last 24 hours): Temp Pulse Resp BP Pulse Ox 98.8 F 77 18 175/70 H 95 02/08/18 08:16 02/08/18 08:16 02/08/18 08:16 02/08/18 08:16 02/08/18 08:16 - Medications Medications: Current Medications Acetaminophen (Tylenol 325mg Tab) 650 mg PO Q4 PRN PRN Reason: Pain, Mild (1-3) Albuterol/Ipratropium (Duoneb 3 Mg/0.5 Mg (3 Ml) Ud) [address] [facility] Last Admin: 02/08/18 07:23 Dose: 3 ml Allopurinol (Zyloprim) [address] [facility] Last Admin: 02/07/18 08:47 Dose: Not Given Amlodipine Besylate (Norvasc) [address] [facility] Last Admin: 02/07/18 08:50 Dose: Not Given Atorvastatin Calcium (Lipitor) [address] [facility] Last Admin: 02/07/18 08:46 Dose: Not Given Docusate Sodium (Colace) [address] [facility] Last Admin: 02/07/18 16:41 Dose: 100 mg Ergocalciferol (Drisdol 50,000 Intl Units Cap) [address] [facility] Last Admin: 02/04/18 16:44 Dose: 1 cap HCTZ/Losartan Potassium (Hyzaar 12.5 Mg-50 Mg) [address] [facility] Last Admin: 02/07/18 08:50 Dose: Not Given Heparin Sodium (Porcine) (Heparin) 5,000 units SC Q8 [facility] PRN Reason: Protocol Last Admin: 02/06/18 16:38 Dose: 5,000 units Hydromorphone HCl (Dilaudid) 0.5 mg IVP Q4H PRN PRN Reason: Pain, moderate (4-7) Piperacillin Sod/Tazobactam (Sod 3.375 gm/ Sodium Chloride) 100 mls @ 100 mls/ hr IVPB Q6 [facility] PRN Reason: Protocol Last Admin: 02/08/18 04:25 Dose: 100 mls/hr Lactated Ringer's (Lactated Ringer's) 1,000 mls @ 100 mls/hr IV .Q10H [facility] Last Admin: 02/07/18 23:04 Dose: 100 mls/hr Memantine (Namenda) [address] [facility] Last Admin: 02/07/18 08:49 Dose: 5 mg Montelukast Sodium (Singulair) [address] [facility] Last Admin: 02/07/18 21:46 Dose: 10 mg Ondansetron HCl (Zofran Inj) 4 mg IVP Q4 PRN PRN Reason: Nausea/Vomiting Last Admin: 02/07/18 17:27 Dose: 4 mg Oxycodone HCl (Oxycodone Immediate Release Tab) 5 mg PO Q6 PRN PRN Reason: Pain, moderate (4-7) Last Admin: 02/07/18 16:42 Dose: 5 mg Pantoprazole Sodium (Protonix Inj) [address] [facility] Last Admin: 02/07/18 10:00 Dose: 40 mg Sucralfate (Carafate Tab) 1 gm PO Q6 PRN PRN Reason: GI distress Tramadol HCl (Ultram) 50 mg PO Q12 PRN PRN Reason: Pain, severe (8-10) Last Admin: 02/03/18 13:55 Dose: 50 mg Venlafaxine HCl (Effexor Xr) [address] [facility] Last Admin: 02/07/18 08:38 Dose: Not Given - Labs Labs: 02/07/18 05:36 02/07/18 05:36 PT 11.9 Seconds (9.8-13.1) 02/07/18 05:36 INR 1.1 02/07/18 05:36 APTT 36.3 Seconds (25.6-37.1) 02/07/18 05:36 - Constitutional Appears: No Acute Distress - Head Exam Head Exam: ATRAUMATIC, NORMAL INSPECTION, NORMOCEPHALIC - Eye Exam Eye Exam: EOMI, Normal appearance, PERRL Pupil Exam: NORMAL ACCOMODATION, PERRL - ENT Exam ENT Exam: Mucous Membranes Moist, Normal Exam - Neck Exam Neck Exam: Full ROM, Normal Inspection. absent: Lymphadenopathy - Respiratory Exam Respiratory Exam: Clear to Ausculation Bilateral, NORMAL BREATHING PATTERN - Cardiovascular Exam Cardiovascular Exam: REGULAR RHYTHM, +S1, +S2. absent: Murmur - GI/Abdominal Exam GI & Abdominal Exam: Soft, Normal Bowel Sounds. absent: Tenderness - Rectal Exam Rectal Exam: NORMAL INSPECTION - Extremities Exam Extremities Exam: Full ROM, Normal Capillary Refill, Normal Inspection. absent : Joint Swelling, Pedal Edema - Back Exam Back Exam: NORMAL INSPECTION - Neurological Exam Neurological Exam: Alert, Awake, CN II-XII Intact, Normal Gait, Oriented x3 - Psychiatric Exam Psychiatric exam: Normal Affect, Normal Mood - Skin Skin Exam: Dry, Intact, Normal Color, Warm Assessment and Plan - Assessment and Plan (Free Text) Assessment: PNEUMONIA S/P LAP SUZANNE Plan: REPEAT CXR TO EVALUATE PROGRESS OF PNEUMONIA
[2018-02-08] MEDS: Venlafaxine 150 mg ER Cap PO SCH (09:07)
[2018-02-08] MEDS: HCTZ/Losartan 12.5/50 Tab PO SCH (09:07)
[2018-02-08] MEDS: oxyCODONE 5 mg Immediate Release Tab PO PRN (09:18)
[2018-02-08] MEDS: Lactated Ringer's 1,000 ML IV SCH (09:21)
--- NOTE | 2018-02-08 10:16 | RAD ---
Date of service: 02/08/2018 PROCEDURE: CHEST RADIOGRAPH, 1 VIEW HISTORY: Pneumonia COMPARISON: 02/04/2018 FINDINGS: LUNGS: There are low lung volumes. There is bibasilar atelectasis. PLEURA: No pneumothorax or pleural fluid seen. CARDIOVASCULAR: Normal. OSSEOUS STRUCTURES: No significant abnormalities. VISUALIZED UPPER ABDOMEN: Normal. OTHER FINDINGS: None. IMPRESSION: No active pulmonary disease.
--- NOTE | 2018-02-08 11:17 | CP.PCM.PN ---
Subjective - Date & Time of Evaluation Date of Evaluation: 02/08/18 Time of Evaluation: 10:15 - Subjective Subjective: Pt seen at bedside this am; laying comfortably in bed in no acute distress. He is POD 1 after lap cholecystectomy. Incentive spirometer in bed next to pt; pt states he has been using it. Overnight had some episodes of n/v, but now resolved. Objective - Vital Signs/Intake and Output Vital Signs (last 24 hours): Temp Pulse Resp BP Pulse Ox 98.8 F 80 18 124/70 95 02/08/18 08:16 02/08/18 09:06 02/08/18 08:16 02/08/18 09:06 02/08/18 08:16 - Medications Medications: Current Medications Acetaminophen (Tylenol 325mg Tab) 650 mg PO Q4 PRN PRN Reason: Pain, Mild (1-3) Albuterol/Ipratropium (Duoneb 3 Mg/0.5 Mg (3 Ml) Ud) 3 ml INH RQ4 [facility] Last Admin: 02/08/18 07:23 Dose: 3 ml Allopurinol (Zyloprim) 100 mg PO DAILY [facility] Last Admin: 02/08/18 09:07 Dose: 100 mg Amlodipine Besylate (Norvasc) 5 mg PO DAILY [facility] Last Admin: 02/08/18 09:06 Dose: 5 mg Atorvastatin Calcium (Lipitor) 10 mg PO DAILY [facility] Last Admin: 02/08/18 09:07 Dose: 10 mg Docusate Sodium (Colace) 100 mg PO BID [facility] Last Admin: 02/08/18 09:06 Dose: 100 mg Ergocalciferol (Drisdol 50,000 Intl Units Cap) 1 cap PO QWK [facility] Last Admin: 02/04/18 16:44 Dose: 1 cap HCTZ/Losartan Potassium (Hyzaar 12.5 Mg-50 Mg) 1 tab PO DAILY [facility] Last Admin: 02/08/18 09:07 Dose: 1 tab Heparin Sodium (Porcine) (Heparin) 5,000 units SC Q8 [facility] PRN Reason: Protocol Last Admin: 02/08/18 09:07 Dose: 5,000 units Hydromorphone HCl (Dilaudid) 0.5 mg IVP Q4H PRN PRN Reason: Pain, moderate (4-7) Lactated Ringer's (Lactated Ringer's) 1,000 mls @ 100 mls/hr IV .Q10H [facility] Last Admin: 02/08/18 09:21 Dose: 100 mls/hr Memantine (Namenda) 5 mg PO DAILY [facility] Last Admin: 02/08/18 09:06 Dose: 5 mg Montelukast Sodium (Singulair) 10 mg PO HS [facility] Last Admin: 02/07/18 21:46 Dose: 10 mg Ondansetron HCl (Zofran Inj) 4 mg IVP Q4 PRN PRN Reason: Nausea/Vomiting Last Admin: 02/07/18 17:27 Dose: 4 mg Oxycodone HCl (Oxycodone Immediate Release Tab) 5 mg PO Q6 PRN PRN Reason: Pain, moderate (4-7) Last Admin: 02/08/18 09:18 Dose: 5 mg Pantoprazole Sodium (Protonix Inj) 40 mg IVP DAILY [facility] Last Admin: 02/08/18 09:07 Dose: 40 mg Sucralfate (Carafate Tab) 1 gm PO Q6 PRN PRN Reason: GI distress Tramadol HCl (Ultram) 50 mg PO Q12 PRN PRN Reason: Pain, severe (8-10) Last Admin: 02/03/18 13:55 Dose: 50 mg Venlafaxine HCl (Effexor Xr) 150 mg PO DAILY [facility] Last Admin: 02/08/18 09:07 Dose: 150 mg - Labs Labs: 02/07/18 05:36 02/07/18 05:36 PT 11.9 Seconds (9.8-13.1) 02/07/18 05:36 INR 1.1 02/07/18 05:36 APTT 36.3 Seconds (25.6-37.1) 02/07/18 05:36 - Constitutional Appears: No Acute Distress - Head Exam Head Exam: NORMAL INSPECTION - ENT Exam ENT Exam: Mucous Membranes Moist - Respiratory Exam Respiratory Exam: NORMAL BREATHING PATTERN. absent: Wheezes, Respiratory Distress Additional comments: good air movement bilaterally - Cardiovascular Exam Cardiovascular Exam: REGULAR RHYTHM, +S1, +S2 - GI/Abdominal Exam GI & Abdominal Exam: Soft, Tenderness (mild, near incisions) - Extremities Exam Extremities Exam: Normal Capillary Refill, Normal Inspection. absent: Pedal Edema - Neurological Exam Neurological Exam: Alert, Awake - Skin Skin Exam: Dry, Normal Color, Warm Assessment and Plan (1) Acute cholecystitis Status: Acute (2) Cholelithiasis Status: Chronic (3) Diabetes Status: Chronic (4) Pneumonia Status: Acute - Assessment and Plan (Free Text) Plan: - advance diet as tolerated - encourage PT and OOBTC - continue abx - repeat chest x ray for eval of PNA - continue rest of current plan as ordered
[2018-02-09] MEDS: oxyCODONE 5 mg Immediate Release Tab PO PRN (01:09)
[2018-02-09] MEDS: Piperacillin/Tazobact 3.375 GM in Sodium Chloride 0.9% 100 ML IVPB SCH ×4 (04:12→10:04)
[2018-02-09] MEDS: Albuterol-Ipratrop 3 mg / 0.5 (3 ml) UD INH SCH ×4 (05:00→16:10)
[2018-02-09 06:30] LABS: HEMOGLOBIN 11.9 g/dL (12.0-18.0); MEAN CELL VOLUME 85.5 fl (80.0-94.0); MEAN CORPUSCULAR HEMOGLOBIN 28.6 pg (27.0-31.0); MEAN CORPUSCULAR HGB CONC 33.5 g/dL (33.0-37.0); RBC 4.14 Mil/uL (4.40-5.90); RED CELL DISTRIBUTION WIDTH 15.2 % (11.5-14.5); WHITE BLOOD COUNT 7.1 K/uL (4.8-10.8)
[2018-02-09 07:17] LABS: ALB/GLOB RATIO 1.2 (1.0-2.1); ALBUMIN 3.4 g/dL (3.5-5.0); ALT/SGPT 46 U/L (21-72); AST/SGOT 51 U/L (17-59); BLOOD UREA NITROGEN 11 mg/dl (9-20); CALCIUM 8.5 mg/dL (8.4-10.2); GFR AFRICAN-AMERICAN > 60; GFR NON-AFRICAN AMERICAN > 60
--- NOTE | 2018-02-09 08:23 | CP.PCM.PN ---
Subjective - Date & Time of Evaluation Date of Evaluation: 02/09/18 Time of Evaluation: 08:23 - Subjective Subjective: NO ACUTE DISTRESS NO CHEST PAINS/SOB Objective - Vital Signs/Intake and Output Vital Signs (last 24 hours): Temp Pulse Resp BP Pulse Ox 97.7 F 66 18 175/63 H 95 02/09/18 08:06 02/09/18 08:06 02/09/18 08:06 02/09/18 08:06 02/09/18 08:06 - Medications Medications: Current Medications Acetaminophen (Tylenol 325mg Tab) 650 mg PO Q4 PRN PRN Reason: Pain, Mild (1-3) Albuterol/Ipratropium (Duoneb 3 Mg/0.5 Mg (3 Ml) Ud) 3 ml INH RQ4 [facility] Last Admin: 02/09/18 07:34 Dose: 3 ml Allopurinol (Zyloprim) 100 mg PO DAILY [facility] Last Admin: 02/08/18 09:07 Dose: 100 mg Amlodipine Besylate (Norvasc) 5 mg PO DAILY [facility] Last Admin: 02/08/18 09:06 Dose: 5 mg Atorvastatin Calcium (Lipitor) 10 mg PO DAILY [facility] Last Admin: 02/08/18 09:07 Dose: 10 mg Docusate Sodium (Colace) 100 mg PO BID [facility] Last Admin: 02/08/18 16:25 Dose: 100 mg Ergocalciferol (Drisdol 50,000 Intl Units Cap) 1 cap PO QWK [facility] Last Admin: 02/04/18 16:44 Dose: 1 cap HCTZ/Losartan Potassium (Hyzaar 12.5 Mg-50 Mg) 1 tab PO DAILY [facility] Last Admin: 02/08/18 09:07 Dose: 1 tab Heparin Sodium (Porcine) (Heparin) 5,000 units SC Q8 [facility] PRN Reason: Protocol Last Admin: 02/09/18 00:39 Dose: 5,000 units Hydromorphone HCl (Dilaudid) 0.5 mg IVP Q4H PRN PRN Reason: Pain, moderate (4-7) Lactated Ringer's (Lactated Ringer's) 1,000 mls @ 100 mls/hr IV .Q10H [facility] Last Admin: 02/08/18 09:21 Dose: 100 mls/hr Piperacillin Sod/Tazobactam (Sod 3.375 gm/ Sodium Chloride) 100 mls @ 100 mls/ hr IVPB Q6 [facility] PRN Reason: Protocol Last Admin: 02/09/18 04:12 Dose: 100 mls/hr Memantine (Namenda) 5 mg PO DAILY [facility] Last Admin: 02/08/18 09:06 Dose: 5 mg Montelukast Sodium (Singulair) 10 mg PO HS [facility] Last Admin: 02/08/18 22:18 Dose: 10 mg Ondansetron HCl (Zofran Inj) 4 mg IVP Q4 PRN PRN Reason: Nausea/Vomiting Last Admin: 02/07/18 17:27 Dose: 4 mg Oxycodone HCl (Oxycodone Immediate Release Tab) 5 mg PO Q6 PRN PRN Reason: Pain, moderate (4-7) Last Admin: 02/09/18 01:09 Dose: 5 mg Pantoprazole Sodium (Protonix Inj) 40 mg IVP DAILY [facility] Last Admin: 02/08/18 09:07 Dose: 40 mg Sucralfate (Carafate Tab) 1 gm PO Q6 PRN PRN Reason: GI distress Tramadol HCl (Ultram) 50 mg PO Q12 PRN PRN Reason: Pain, severe (8-10) Last Admin: 02/08/18 13:50 Dose: 50 mg Venlafaxine HCl (Effexor Xr) 150 mg PO DAILY [facility] Last Admin: 02/08/18 09:07 Dose: 150 mg - Labs Labs: 02/09/18 06:00 02/09/18 06:00 PT 11.9 Seconds (9.8-13.1) 02/07/18 05:36 INR 1.1 02/07/18 05:36 APTT 36.3 Seconds (25.6-37.1) 02/07/18 05:36 - Constitutional Appears: Well - Head Exam Head Exam: ATRAUMATIC, NORMAL INSPECTION, NORMOCEPHALIC - Eye Exam Eye Exam: EOMI, Normal appearance, PERRL Pupil Exam: NORMAL ACCOMODATION, PERRL - ENT Exam ENT Exam: Mucous Membranes Moist, Normal Exam - Neck Exam Neck Exam: Full ROM, Normal Inspection. absent: Lymphadenopathy - Respiratory Exam Respiratory Exam: Clear to Ausculation Bilateral, NORMAL BREATHING PATTERN - Cardiovascular Exam Cardiovascular Exam: REGULAR RHYTHM, +S1, +S2. absent: Murmur - GI/Abdominal Exam GI & Abdominal Exam: Soft, Normal Bowel Sounds. absent: Tenderness - Rectal Exam Rectal Exam: NORMAL INSPECTION - Extremities Exam Extremities Exam: Full ROM, Normal Capillary Refill, Normal Inspection. absent : Joint Swelling, Pedal Edema - Back Exam Back Exam: NORMAL INSPECTION - Neurological Exam Neurological Exam: Alert, Awake, CN II-XII Intact, Normal Gait, Oriented x3 - Psychiatric Exam Psychiatric exam: Normal Affect, Normal Mood - Skin Skin Exam: Dry, Intact, Normal Color, Warm Assessment and Plan - Assessment and Plan (Free Text) Assessment: PNEUMONIA RESOLVED Plan: NO FURTHER PULMONARY INTERVENTION FOR NOW WILL SIGN OFF CASE CASE AND SEE AGAIN AT YOUR REQUEST
[2018-02-09] MEDS: HCTZ/Losartan 12.5/50 Tab PO SCH (08:37)
[2018-02-09] MEDS: Venlafaxine 150 mg ER Cap PO SCH (08:37)
[2018-02-09] MEDS ORDERED: levoFLOXacin 500 MG TAB PO SCH (10:30)
[2018-02-09] MEDS ORDERED: Potassium Chloride 20 mEq ER Tab PO ONE (11:00)
--- NOTE | 2018-02-09 11:34 | CP.PCM.PN ---
Subjective - Date & Time of Evaluation Date of Evaluation: 02/09/18 Time of Evaluation: 10:10 - Subjective Subjective: General Surgery Pt Seen & examined. No acute events overnight. + flatus, - BM. Tolerating diet. Ambulating with assistance. Objective - Vital Signs/Intake and Output Vital Signs (last 24 hours): Temp Pulse Resp BP Pulse Ox 97.7 F 66 18 175/63 H 96 02/09/18 08:06 02/09/18 08:38 02/09/18 08:06 02/09/18 08:38 02/09/18 10:23 - Medications Medications: Current Medications Acetaminophen (Tylenol 325mg Tab) 650 mg PO Q4 PRN PRN Reason: Pain, Mild (1-3) Albuterol/Ipratropium (Duoneb 3 Mg/0.5 Mg (3 Ml) Ud) 3 ml INH RQ4 [facility] Last Admin: 02/09/18 10:59 Dose: 3 ml Allopurinol (Zyloprim) 100 mg PO DAILY [facility] Last Admin: 02/09/18 09:57 Dose: 100 mg Amlodipine Besylate (Norvasc) 5 mg PO DAILY [facility] Last Admin: 02/09/18 08:38 Dose: 5 mg Atorvastatin Calcium (Lipitor) 10 mg PO DAILY [facility] Last Admin: 02/09/18 08:38 Dose: 10 mg Docusate Sodium (Colace) 100 mg PO BID [facility] Last Admin: 02/09/18 08:37 Dose: 100 mg Ergocalciferol (Drisdol 50,000 Intl Units Cap) 1 cap PO QWK [facility] Last Admin: 02/04/18 16:44 Dose: 1 cap HCTZ/Losartan Potassium (Hyzaar 12.5 Mg-50 Mg) 1 tab PO DAILY [facility] Last Admin: 02/09/18 08:37 Dose: 1 tab Heparin Sodium (Porcine) (Heparin) 5,000 units SC Q8 [facility] PRN Reason: Protocol Last Admin: 02/09/18 08:37 Dose: 5,000 units Hydromorphone HCl (Dilaudid) 0.5 mg IVP Q4H PRN PRN Reason: Pain, moderate (4-7) Lactated Ringer's (Lactated Ringer's) 1,000 mls @ 100 mls/hr IV .Q10H [facility] Last Admin: 02/08/18 09:21 Dose: 100 mls/hr Lactulose (Enulose) 20 gm PO DAILY PRN PRN Reason: Constipation Last Admin: 02/09/18 11:17 Dose: 20 gm Levofloxacin (Levaquin) 500 mg PO DAILY [facility] PRN Reason: Protocol Memantine (Namenda) 5 mg PO DAILY [facility] Last Admin: 02/09/18 08:38 Dose: 5 mg Montelukast Sodium (Singulair) 10 mg PO [facility] Last Admin: 02/08/18 22:18 Dose: 10 mg Ondansetron HCl (Zofran Inj) 4 mg IVP Q4 PRN PRN Reason: Nausea/Vomiting Last Admin: 02/07/18 17:27 Dose: 4 mg Oxycodone HCl (Oxycodone Immediate Release Tab) 5 mg PO Q6 PRN PRN Reason: Pain, moderate (4-7) Last Admin: 02/09/18 01:09 Dose: 5 mg Pantoprazole Sodium (Protonix Inj) 40 mg IVP DAILY [facility] Last Admin: 02/09/18 08:38 Dose: 40 mg Sennosides (Senokot Tab) 8.6 mg PO BID [facility] Sucralfate (Carafate Tab) 1 gm PO Q6 PRN PRN Reason: GI distress Tramadol HCl (Ultram) 50 mg PO Q12 PRN PRN Reason: Pain, severe (8-10) Last Admin: 02/09/18 10:46 Dose: 50 mg Venlafaxine HCl (Effexor Xr) 150 mg PO DAILY [facility] Last Admin: 02/09/18 08:37 Dose: 150 mg - Labs Labs: 02/09/18 06:00 02/09/18 06:00 PT 11.9 Seconds (9.8-13.1) 02/07/18 05:36 INR 1.1 02/07/18 05:36 APTT 36.3 Seconds (25.6-37.1) 02/07/18 05:36 - Constitutional Appears: Non-toxic, No Acute Distress - Head Exam Head Exam: ATRAUMATIC, NORMOCEPHALIC - Eye Exam Eye Exam: EOMI. absent: Scleral icterus - Respiratory Exam Respiratory Exam: NORMAL BREATHING PATTERN. absent: Respiratory Distress - Cardiovascular Exam Cardiovascular Exam: RRR - GI/Abdominal Exam GI & Abdominal Exam: Soft, Tenderness (suprapubic). absent: Distended, Firm, Guarding, Rigid, Rebound - Neurological Exam Neurological Exam: Alert, Awake, Oriented x3 - Skin Skin Exam: Dry, Warm Assessment and Plan - Assessment and Plan (Free Text) Assessment: 87M s/p Lap efe, POD#2 Plan: - cont pain management - PT/OT - encourage OOB to chair/Amb/valve use - GI/DVT PPx - pt cleared for discharge from surgical standpoint PGY4
--- NOTE | 2018-02-09 13:39 | CP.PCM.PN ---
Subjective - Date & Time of Evaluation Date of Evaluation: 02/09/18 Time of Evaluation: 10:30 - Subjective Subjective: Pt seen with Dr. Smith this am; was trying to make the bed. Reports no chest pain or trouble breathing, however has been constipated, though is passing gas. Was seen by physical therapy yesterday. Objective - Vital Signs/Intake and Output Vital Signs (last 24 hours): Temp Pulse Resp BP Pulse Ox 97.7 F 66 18 175/63 H 96 02/09/18 08:06 02/09/18 08:38 02/09/18 08:06 02/09/18 08:38 02/09/18 10:23 - Medications Medications: Current Medications Acetaminophen (Tylenol 325mg Tab) 650 mg PO Q4 PRN PRN Reason: Pain, Mild (1-3) Albuterol/Ipratropium (Duoneb 3 Mg/0.5 Mg (3 Ml) Ud) 3 ml INH RQ4 [facility] Last Admin: 02/09/18 10:59 Dose: 3 ml Allopurinol (Zyloprim) 100 mg PO DAILY [facility] Last Admin: 02/09/18 09:57 Dose: 100 mg Amlodipine Besylate (Norvasc) 5 mg PO DAILY [facility] Last Admin: 02/09/18 08:38 Dose: 5 mg Atorvastatin Calcium (Lipitor) 10 mg PO DAILY [facility] Last Admin: 02/09/18 08:38 Dose: 10 mg Docusate Sodium (Colace) 100 mg PO BID [facility] Last Admin: 02/09/18 08:37 Dose: 100 mg Ergocalciferol (Drisdol 50,000 Intl Units Cap) 1 cap PO QWK [facility] Last Admin: 02/04/18 16:44 Dose: 1 cap HCTZ/Losartan Potassium (Hyzaar 12.5 Mg-50 Mg) 1 tab PO DAILY [facility] Last Admin: 02/09/18 08:37 Dose: 1 tab Heparin Sodium (Porcine) (Heparin) 5,000 units SC Q8 [facility] PRN Reason: Protocol Last Admin: 02/09/18 08:37 Dose: 5,000 units Hydromorphone HCl (Dilaudid) 0.5 mg IVP Q4H PRN PRN Reason: Pain, moderate (4-7) Lactated Ringer's (Lactated Ringer's) 1,000 mls @ 100 mls/hr IV .Q10H [facility] Last Admin: 02/08/18 09:21 Dose: 100 mls/hr Lactulose (Enulose) 20 gm PO DAILY PRN PRN Reason: Constipation Last Admin: 02/09/18 11:17 Dose: 20 gm Levofloxacin (Levaquin) 500 mg PO DAILY [facility] PRN Reason: Protocol Memantine (Namenda) 5 mg PO DAILY [facility] Last Admin: 02/09/18 08:38 Dose: 5 mg Montelukast Sodium (Singulair) 10 mg PO [facility] Last Admin: 02/08/18 22:18 Dose: 10 mg Ondansetron HCl (Zofran Inj) 4 mg IVP Q4 PRN PRN Reason: Nausea/Vomiting Last Admin: 02/07/18 17:27 Dose: 4 mg Oxycodone HCl (Oxycodone Immediate Release Tab) 5 mg PO Q6 PRN PRN Reason: Pain, moderate (4-7) Last Admin: 02/09/18 01:09 Dose: 5 mg Pantoprazole Sodium (Protonix Inj) 40 mg IVP DAILY [facility] Last Admin: 02/09/18 08:38 Dose: 40 mg Sennosides (Senokot Tab) 8.6 mg PO BID [facility] Sucralfate (Carafate Tab) 1 gm PO Q6 PRN PRN Reason: GI distress Tramadol HCl (Ultram) 50 mg PO Q12 PRN PRN Reason: Pain, severe (8-10) Last Admin: 02/09/18 10:46 Dose: 50 mg Venlafaxine HCl (Effexor Xr) 150 mg PO DAILY [facility] Last Admin: 02/09/18 08:37 Dose: 150 mg - Labs Labs: 02/09/18 06:00 02/09/18 06:00 PT 11.9 Seconds (9.8-13.1) 02/07/18 05:36 INR 1.1 02/07/18 05:36 APTT 36.3 Seconds (25.6-37.1) 02/07/18 05:36 - Constitutional Appears: Non-toxic, No Acute Distress - Eye Exam Eye Exam: Normal appearance - ENT Exam ENT Exam: Mucous Membranes Moist - Respiratory Exam Respiratory Exam: Clear to Ausculation Bilateral, NORMAL BREATHING PATTERN - Cardiovascular Exam Cardiovascular Exam: REGULAR RHYTHM, +S1, +S2 - GI/Abdominal Exam GI & Abdominal Exam: Soft, Normal Bowel Sounds - Extremities Exam Extremities Exam: Normal Inspection - Neurological Exam Neurological Exam: Alert, Awake - Psychiatric Exam Psychiatric exam: Normal Mood - Skin Skin Exam: Dry, Warm Assessment and Plan (1) Acute cholecystitis Status: Acute (2) Cholelithiasis Status: Resolved (3) Diabetes Status: Chronic (4) Pneumonia Status: Resolved - Assessment and Plan (Free Text) Plan: - lactulose today - switch antibiotics to PO ciprofloxacin - PNA - presumed bacterial. As per Dr Philippe, resolved. - encourage PT and OOBTC; plan for possible TCU due to deconditioning - continue rest of current plan as ordered
[2018-02-09 16:36] VITALS: RESP 20; TEMP 97.8
[2018-02-09 16:38] VITALS: BP 163/66; PULSE 73; O2SAT 93
--- NOTE | 2018-02-10 18:50 | OP ---
Copied To: Darcy Cerda DO Attending MD: González Pires MD PROCEDURE DATE: 02/07/2018 PREOPERATIVE DIAGNOSES: Resolved gallstone pancreatitis and chronic cholecystitis. POSTOPERATIVE DIAGNOSES: Resolved gallstone pancreatitis and chronic cholecystitis. PROCEDURE: Laparoscopic cholecystectomy. SURGEON: González Pires MD MASK LAYOUT DESIGNER: Dr. Juares PGY4, Dr. Cerda PGY3 TYPE OF ANESTHESIA: General. SPECIMEN: Gallbladder. ESTIMATED BLOOD LOSS: 10 mL. INDICATION: This is an 87-year-old gentleman with a history of Lewy body dementia who presented earlier in the month with a gallstone pancreatitis. Symptoms resolved and patient was discharged home for outpatient followup. Patient presented back to the ER few weeks later with recurrent right upper quadrant pain. Patient obtained cardiac clearance as well as pulmonary clearance and was taken to the OR. Consent was obtained from the patient's next-of-kin, his son. DESCRIPTION OF PROCEDURE: Patient was placed on the operating table in the supine position. General anesthesia was induced. A time-out was completed verifying correct patient, procedure, and positioning. The abdomen was prepped and draped in the usual sterile fashion. Roughly 5 mL of Marcaine was injected infraumbilical and a skin incision was made using an 11-blade infraumbilically. The fascia was then elevated using towel clamps and a Veress needle was inserted. Proper positioning of the needle was confirmed by saline meniscus testing. The abdomen was then insufflated with carbon dioxide to a pressure of 12 mmHg which patient tolerated well. A 12-mm trocar was then inserted through the infraumbilical incision using a Visiport. The laparoscope was inserted and the abdomen was inspected. No injuries were noted on initial trocar placement and the additional trocars were inserted in the following locations. A 5-mm trocar was inserted in the right epigastrium and 2 additional 5-mm trocars were inserted along the right flank. The abdomen was inspected and no abnormalities were noted. Patient was placed in reverse-Trendelenburg with the right side up. Filmy adhesions between the gallbladder and the omentum were bluntly dissected and attempts were made to grasp the dome of the gallbladder with an atraumatic grasper. The gallbladder was very distended, requiring drainage. The Veress needle was reinserted into the abdomen below the right costal margin and used to aspirate bile from the gallbladder. Roughly 60 mL of bile was removed from the gallbladder and sent for culture. At that time, the dome of the gallbladder was grasped using atraumatic grasper through the lateral port and retracted over the dome of the liver. The infundibulum was also grasped with an atraumatic grasper through the remaining lateral port and retracted to the right lower quadrant. This maneuver exposed Calot's triangle. The peritoneum overlying the gallbladder infundibulum was bluntly dissected revealing the cystic duct and artery, which were then circumferentially dissected. The view of safety was obtained with 2 structures clearly identified as going into the gallbladder with the liver bed visible behind them. The lateral peritoneal reflections connecting the gallbladder to the liver were dissected to confirm only 2 structures passing into the gallbladder. The cystic duct and artery were then triply clipped and divided close to the gallbladder. The gallbladder was then dissected from its peritoneal attachments with electrocautery using a hook. A posterior cystic artery was identified during the gallbladder dissection off the liver bed. 2 clips were applied to the posterior artery prior to dividing the artery close to the gallbladder. Attention was then returned to dissecting the gallbladder off the cystic plate. Hemostasis was confirmed, at which time the gallbladder was removed through the umbilical port site using an endoscopic bag. The gallbladder was passed off the table as specimen. Gallbladder fossa was copiously irrigated with saline. Hemostasis was again confirmed. There was no evidence of any cystic artery or cystic duct leakage. All trocars were removed under direct visualization. No bleeding was noted from trocar sites. The laparoscope was then withdrawn and the umbilical trocar removed. The abdomen was allowed to deflate. The fascia of the 12-mm trocar site was closed using a [id number] 0 Vicryl suture as well as additional interrupted 0 Vicryl suture. The skin was closed for all 4 ports using subcuticular 4-0 Monocryl with Dermabond placed over top of the incision. Patient tolerated the procedure well, was extubated in the OR, and taken to PACU in stable condition. Darcy Flick, DO González Pires MD [facility] # [id number] NANDINI
--- NOTE | 2018-02-11 | CP.PCM.PN ---
Subjective - Date & Time of Evaluation Date of Evaluation: 02/07/18 Time of Evaluation: 10:00 - Subjective Subjective: Patient is scheduled for surgery. Currently under treatment for pneumonia. Objective - Vital Signs/Intake and Output Vital Signs (last 24 hours): Temp Pulse Resp BP Pulse Ox 97.8 F 73 20 163/66 H 93 L 02/09/18 16:36 02/09/18 16:36 02/09/18 16:36 02/09/18 16:36 02/09/18 16:36 - Labs Labs: 02/09/18 06:00 02/09/18 06:00 PT 11.9 Seconds (9.8-13.1) 02/07/18 05:36 INR 1.1 02/07/18 05:36 APTT 36.3 Seconds (25.6-37.1) 02/07/18 05:36 Assessment and Plan (1) Cholelithiasis Status: Resolved (2) Pneumonia Status: Resolved (3) Hypertension Status: Acute
== END 2018-02-09 18:30 | DRG 556 ==
LOC: H.ER 16:47 → H.ERHOLD 20:32 → H.MEDSURG1 22:27
PROVIDERS: ADMIT Family Medicine; ATTEND Family Medicine
PROC: 0FT44ZZ Resection of Gallbladder, Percutaneous Endoscopic Approach (ICD-10-PCS; principal; 2018-02-07 09:00)
DX: K80.10 Calculus of gallbladder with chronic cholecystitis without obstruction (principal); J15.9 Unspecified bacterial pneumonia; E11.51 Type 2 diabetes mellitus with diabetic peripheral angiopathy without gangrene; E78.00 Pure hypercholesterolemia, unspecified; E78.5 Hyperlipidemia, unspecified; F02.80 Dementia in other diseases classified elsewhere, unspecified severity, without behavioral disturbance, psychotic disturbance, mood disturbance, and anxiety; G31.83 Neurocognitive disorder with Lewy bodies; I25.10 Atherosclerotic heart disease of native coronary artery without angina pectoris; Z95.5 Presence of coronary angioplasty implant and graft; K59.00 Constipation, unspecified; Z87.891 Personal history of nicotine dependence; K29.70 Gastritis, unspecified, without bleeding; G89.29 Other chronic pain; M10.9 Gout, unspecified; J45.30 Mild persistent asthma, uncomplicated; I10 Essential (primary) hypertension; F32.9 Major depressive disorder, single episode, unspecified; N40.0 Benign prostatic hyperplasia without lower urinary tract symptoms; M19.90 Unspecified osteoarthritis, unspecified site; R00.1 Bradycardia, unspecified

== ENCOUNTER 2018-02-09 16:47 | Inpatient (IN) | payer MEDICAID ==
[2018-02-09 18:50] VITALS: BMI 30.7
[2018-02-09] MEDS ORDERED: Albuterol-Ipratrop 3 mg / 0.5 (3 ml) UD INH PRN (21:05)
[2018-02-09] MEDS ORDERED: oxyCODONE 5 mg Immediate Release Tab PO PRN (21:11)
[2018-02-09] MEDS ORDERED: Ergocalciferol 50,000 Intl Units Cap PO SCH (21:15)
[2018-02-10] MEDS: Venlafaxine 150 mg ER Cap PO SCH (09:00)
[2018-02-10] MEDS: HCTZ/Losartan 12.5/50 Tab PO SCH (09:03)
[2018-02-10] MEDS: levoFLOXacin 500 MG TAB PO SCH (09:03)
[2018-02-10] MEDS: Lactobacillus Acidophilus 500 MU Cap PO SCH ×2 (09:12→16:57)
--- NOTE | 2018-02-10 09:20 | CP.PCM.HP ---
History of Present Illness - History of Present Illness History of Present Illness: This is an 87 y/o male admitted for further rehab after being deconditoned while in the medical floor for chlecytitis andcholelithiasis. He had a recent cholecystectomy and immediate postop period was unremarkable except for constipation. He was noted to have slight infiltrate on CXR prior to surgery and was placed on IV antibiotics. Repeat CXR prior to discharge from the medical floor showed clearing of infiltrate. Has a hx of DM 2 and Parkinsons, hyperlipidemia, depression. Present on Admission - Present on Admission Any Indicators Present on Admission: No History of DVT/PE: No History of Uncontrolled Diabetes: Yes Urinary Catheter: No Decubitus Ulcer Present: No Review of Systems - Gastrointestinal Gastrointestinal: Abdominal Pain, Constipation Past Patient History - Infectious Disease Hx of Infectious Diseases: None - Tetanus Immunizations Tetanus Immunization: Unknown - Past Medical History & Family History Past Medical History?: Yes - Past Social History Smoking Status: Never Smoked - CARDIAC Hx Hypercholesterolemia: Yes Hx Hypertension: Yes - PULMONARY Hx Chronic Obstructive Pulmonary Disease (COPD): No - NEUROLOGICAL Hx Parkinson's Disease: Yes - HEENT Hx HEENT Problems: Yes Other/Comment: has eye glasses but is not using it - RENAL Hx Chronic Kidney Disease: No - ENDOCRINE/METABOLIC Hx Diabetes Mellitus Type 2: Yes - HEMATOLOGICAL/ONCOLOGICAL Hx Anemia: No Hx Human Immunodeficiency Virus (HIV): No - INTEGUMENTARY Hx Dermatological Problems: No - MUSCULOSKELETAL/RHEUMATOLOGICAL Hx Arthritis: Yes Hx Falls: No - GASTROINTESTINAL Hx Gastrointestinal Disorders: Yes Hx Gall Bladder Disease: Yes Hx Gastritis: Yes Hx Hemorrhoids: Yes Hx Pancreatitis: Yes - GENITOURINARY/GYNECOLOGICAL Hx Genitourinary Disorders: Yes Hx Prostate Problems: Yes - PSYCHIATRIC Hx Depression: Yes - SURGICAL HISTORY Hx Appendectomy: Yes Hx Cholecystectomy: Yes Hx Coronary Stent: Yes - ANESTHESIA Hx Anesthesia: Yes Hx Anesthesia Reactions: No Hx Malignant Hyperthermia: No Meds Allergies/Adverse Reactions: Allergies Allergy/AdvReac Type Severity Reaction Status Date / Time No Known Allergies Allergy Verified 02/09/18 18:49 Physical Exam - Head Exam Head Exam: NORMAL INSPECTION - Eye Exam Eye Exam: Normal appearance - ENT Exam ENT Exam: Mucous Membranes Moist - Cardiovascular Exam Cardiovascular Exam: REGULAR RHYTHM - GI/Abdominal Exam GI & Abdominal Exam: Normal Bowel Sounds, Soft - Neurological Exam Neurological exam: CN II-XII Intact - Psychiatric Exam Psychiatric exam: Normal Mood Results - Vital Signs Recent Vital Signs: Last Vital Signs Temp 97.8 F 02/10/18 08:04 Pulse 65 02/10/18 09:02 Resp 20 02/10/18 08:04 BP 129/57 L 02/10/18 09:02 Pulse Ox 97 02/10/18 08:04 Assessment & Plan (1) Physical deconditioning Status: Acute (2) Acute cholecystitis Status: Acute (3) CAP (community acquired pneumonia) Status: Acute (4) Hypertension Status: Acute (5) History of cholecystectomy Status: Acute - Assessment and Plan (Free Text) Plan: start Phys therapy cbc cmp Levaquin po x 7 days cnt all other meds
[2018-02-10 10:59] LABS: BASO % 0.7 % (0.0-2.0); EOS # 0.3 K/uL (0.0-0.7); EOS % 4.3 % (0.0-4.0); HEMOGLOBIN 11.5 g/dL (12.0-18.0); LYMPH # 0.6 K/uL (1.0-4.3); LYMPH % 9.6 % (20.0-40.0); MEAN CELL VOLUME 84.6 fl (80.0-94.0); MEAN CORPUSCULAR HEMOGLOBIN 28.7 pg (27.0-31.0); MEAN CORPUSCULAR HGB CONC 33.9 g/dL (33.0-37.0); MEAN PLATELET VOLUME 10.2 fl (7.2-11.7); MONO # 0.5 K/uL (0.0-0.8); MONO % 7.9 % (0.0-10.0); NEUT % 77.5 % (50.0-75.0); PLATELET COUNT 138 K/uL (130-400); RBC 4.01 Mil/uL (4.40-5.90); RED CELL DISTRIBUTION WIDTH 15.3 % (11.5-14.5); WHITE BLOOD COUNT 6.5 K/uL (4.8-10.8)
[2018-02-10 11:33] LABS: ALB/GLOB RATIO 1.2 (1.0-2.1); ALBUMIN 3.3 g/dL (3.5-5.0); ALT/SGPT 41 U/L (21-72); AST/SGOT 32 U/L (17-59); BLOOD UREA NITROGEN 14 mg/dl (9-20); CALCIUM 8.6 mg/dL (8.4-10.2); GFR AFRICAN-AMERICAN > 60; GFR NON-AFRICAN AMERICAN > 60
[2018-02-10 11:55] LABS: BANDS 1 % (0-2); BASOPHIL 1 % (0-2); EOSINOPHIL 5 % (0-7); LYMPHOCYTE 11 % (20-50); MONOCYTE 9 % (0-10); NEUTROPHIL 72 % (42-75); PLATELET ESTIMATE NORMAL (NORMAL); REACTIVE LYMPHOCYTES 1 % (0-0); TOTAL CELLS COUNTED 100
[2018-02-10 11:56] LABS: ANISOCYTOSIS SLIGHT; HYPOCHROMIC SLIGHT; OVALOCYTES SLIGHT; SCHISTOCYTES SLIGHT
[2018-02-11] MEDS ORDERED: Ergocalciferol 50,000 Intl Units Cap PO SCH (09:00)
[2018-02-11] MEDS: Lactobacillus Acidophilus 500 MU Cap PO SCH ×2 (09:16→17:07)
[2018-02-11] MEDS: HCTZ/Losartan 12.5/50 Tab PO SCH (09:18)
[2018-02-11] MEDS: Venlafaxine 150 mg ER Cap PO SCH (09:18)
[2018-02-11] MEDS: levoFLOXacin 500 MG TAB PO SCH (09:19)
[2018-02-11 16:26] VITALS: RESP 20
--- NOTE | 2018-02-11 16:53 | CP.PCM.PN ---
Subjective - Date & Time of Evaluation Date of Evaluation: 02/11/18 Time of Evaluation: 11:35 - Subjective Subjective: Pt seen this morning with Dr. Smith; did not have any acute events overnight. Reports still has some constipation but had BM yesterday, not yet today. Objective - Vital Signs/Intake and Output Vital Signs (last 24 hours): Temp Pulse Resp BP Pulse Ox 98.2 F 66 20 128/68 94 L 02/11/18 16:25 02/11/18 16:25 02/11/18 16:25 02/11/18 16:25 02/11/18 16:25 - Medications Medications: Current Medications Acetaminophen (Tylenol 325mg Tab) 650 mg PO Q4 PRN PRN Reason: Pain, Mild (1-3) Albuterol/Ipratropium (Duoneb 3 Mg/0.5 Mg (3 Ml) Ud) 3 ml INH RQ4 PRN PRN Reason: Shortness of Breath Allopurinol (Zyloprim) 100 mg PO DAILY [facility] Last Admin: 02/11/18 09:18 Dose: 100 mg Amlodipine Besylate (Norvasc) 5 mg PO DAILY [facility] Last Admin: 02/11/18 09:20 Dose: 5 mg Atorvastatin Calcium (Lipitor) 10 mg PO DAILY [facility] Last Admin: 02/11/18 09:19 Dose: 10 mg Docusate Sodium (Colace) 100 mg PO BID PRN PRN Reason: Constipation Last Admin: 02/11/18 09:17 Dose: 100 mg Ergocalciferol (Drisdol 50,000 Intl Units Cap) 1 cap PO FRI [facility] Last Admin: 02/11/18 09:18 Dose: 1 cap HCTZ/Losartan Potassium (Hyzaar 12.5 Mg-50 Mg) 1 tab PO DAILY [facility] Last Admin: 02/11/18 09:18 Dose: 1 tab Heparin Sodium (Porcine) (Heparin) 5,000 units SC Q8 [facility] PRN Reason: Protocol Last Admin: 02/11/18 09:19 Dose: 5,000 units Lactobacillus Acidophilus (Bacid Acidophilus) 1 cap PO BID [facility] Last Admin: 02/11/18 09:16 Dose: 1 cap Lactulose (Enulose) 20 gm PO DAILY PRN PRN Reason: Constipation Levofloxacin (Levaquin) 500 mg PO DAILY [facility] PRN Reason: Protocol Last Admin: 02/11/18 09:19 Dose: 500 mg Memantine (Namenda) 5 mg PO DAILY [facility] Last Admin: 02/11/18 09:19 Dose: 5 mg Montelukast Sodium (Singulair) 10 mg PO HS [facility] Last Admin: 02/10/18 21:40 Dose: 10 mg Ondansetron HCl (Zofran Inj) 4 mg IVP Q4 PRN PRN Reason: Nausea/Vomiting Oxycodone HCl (Oxycodone Immediate Release Tab) 5 mg PO Q6 PRN PRN Reason: Pain, moderate (4-7) Pantoprazole Sodium (Protonix Ec Tab) 40 mg PO DAILY [facility] Sennosides (Senokot Tab) 8.6 mg PO BID [facility] Last Admin: 02/11/18 09:21 Dose: 8.6 mg Sucralfate (Carafate Tab) 1 gm PO Q6 [facility] Last Admin: 02/11/18 10:06 Dose: 1 gm Tramadol HCl (Ultram) 50 mg PO Q12 PRN PRN Reason: Pain, severe (8-10) Venlafaxine HCl (Effexor Xr) 150 mg PO DAILY [facility] Last Admin: 02/11/18 09:18 Dose: 150 mg - Labs Labs: 02/10/18 10:47 02/10/18 10:47 - Constitutional Appears: No Acute Distress - Eye Exam Eye Exam: Normal appearance - Respiratory Exam Respiratory Exam: NORMAL BREATHING PATTERN - Cardiovascular Exam Cardiovascular Exam: REGULAR RHYTHM - GI/Abdominal Exam GI & Abdominal Exam: Soft - Extremities Exam Extremities Exam: Normal Inspection - Neurological Exam Neurological Exam: Alert, Awake - Skin Skin Exam: Normal Color, Warm Assessment and Plan (1) Physical deconditioning Status: Acute (2) History of cholecystectomy Status: Chronic (3) Constipation Status: Acute - Assessment and Plan (Free Text) Plan: - continue physical therapy - continue levaquin PO x 7 days (today is day 3) - continue home meds - consistent carb diet - heparin for VTE prophylaxis
[2018-02-12 07:44] LABS: HEMOGLOBIN 12.3 g/dL (12.0-18.0); MEAN CELL VOLUME 84.5 fl (80.0-94.0); MEAN CORPUSCULAR HEMOGLOBIN 28.5 pg (27.0-31.0); MEAN CORPUSCULAR HGB CONC 33.8 g/dL (33.0-37.0); RBC 4.31 Mil/uL (4.40-5.90); RED CELL DISTRIBUTION WIDTH 14.8 % (11.5-14.5)
[2018-02-12 08:01] LABS: ALB/GLOB RATIO 1.2 (1.0-2.1); ALBUMIN 3.4 g/dL (3.5-5.0); ALT/SGPT 45 U/L (21-72); AST/SGOT 50 U/L (17-59); BLOOD UREA NITROGEN 12 mg/dl (9-20); GFR AFRICAN-AMERICAN > 60; GFR NON-AFRICAN AMERICAN > 60
[2018-02-12] MEDS: Venlafaxine 150 mg ER Cap PO SCH (09:19)
[2018-02-12] MEDS: Pantoprazole 40 mg EC Tab PO SCH (09:20)
[2018-02-12] MEDS: levoFLOXacin 500 MG TAB PO SCH (09:21)
[2018-02-12] MEDS: HCTZ/Losartan 12.5/50 Tab PO SCH (09:21)
[2018-02-12] MEDS: Lactobacillus Acidophilus 500 MU Cap PO SCH ×2 (09:24→16:52)
[2018-02-13] MEDS: Venlafaxine 150 mg ER Cap PO SCH (08:49)
[2018-02-13] MEDS: HCTZ/Losartan 12.5/50 Tab PO SCH (08:50)
[2018-02-13] MEDS: levoFLOXacin 500 MG TAB PO SCH (08:50)
[2018-02-13] MEDS: Pantoprazole 40 mg EC Tab PO SCH (08:51)
[2018-02-13] MEDS: Lactobacillus Acidophilus 500 MU Cap PO SCH ×2 (08:54→17:13)
[2018-02-14] MEDS: Venlafaxine 150 mg ER Cap PO SCH (09:02)
[2018-02-14] MEDS: HCTZ/Losartan 12.5/50 Tab PO SCH (09:02)
[2018-02-14] MEDS: Lactobacillus Acidophilus 500 MU Cap PO SCH ×2 (09:03→16:08)
[2018-02-14] MEDS: levoFLOXacin 500 MG TAB PO SCH (09:03)
[2018-02-14] MEDS: Pantoprazole 40 mg EC Tab PO SCH (09:04)
[2018-02-14 19:48] VITALS: O2SAT 93
--- NOTE | 2018-02-15 07:29 | CP.PCM.PN ---
Subjective - Date & Time of Evaluation Date of Evaluation: 02/12/18 Time of Evaluation: 10:00 - Subjective Subjective: Patient is doing well with PT Complains of slight pain on the abd area. Objective - Vital Signs/Intake and Output Vital Signs (last 24 hours): Temp Pulse Resp BP Pulse Ox 97.7 F 65 20 127/57 L 93 L 02/14/18 19:47 02/14/18 19:47 02/14/18 19:47 02/14/18 19:47 02/14/18 19:47 - Medications Medications: Current Medications Acetaminophen (Tylenol 325mg Tab) 650 mg PO Q4 PRN PRN Reason: Pain, Mild (1-3) Albuterol/Ipratropium (Duoneb 3 Mg/0.5 Mg (3 Ml) Ud) 3 ml INH RQ4 PRN PRN Reason: Shortness of Breath Allopurinol (Zyloprim) 100 mg PO DAILY [facility] Last Admin: 02/14/18 09:03 Dose: 100 mg Amlodipine Besylate (Norvasc) 5 mg PO DAILY [facility] Last Admin: 02/14/18 09:03 Dose: 5 mg Atorvastatin Calcium (Lipitor) 10 mg PO DAILY [facility] Last Admin: 02/14/18 09:02 Dose: 10 mg Docusate Sodium (Colace) 100 mg PO BID PRN PRN Reason: Constipation Last Admin: 02/14/18 16:10 Dose: 100 mg Ergocalciferol (Drisdol 50,000 Intl Units Cap) 1 cap PO FRI [facility] Last Admin: 02/11/18 09:18 Dose: 1 cap HCTZ/Losartan Potassium (Hyzaar 12.5 Mg-50 Mg) 1 tab PO DAILY [facility] Last Admin: 02/14/18 09:02 Dose: 1 tab Lactobacillus Acidophilus (Bacid Acidophilus) 1 cap PO BID [facility] Last Admin: 02/14/18 16:08 Dose: 1 cap Lactulose (Enulose) 20 gm PO DAILY PRN PRN Reason: Constipation Levofloxacin (Levaquin) 500 mg PO DAILY [facility] PRN Reason: Protocol Last Admin: 02/14/18 09:03 Dose: 500 mg Memantine (Namenda) 5 mg PO DAILY [facility] Last Admin: 02/14/18 09:03 Dose: 5 mg Montelukast Sodium (Singulair) 10 mg PO HS [facility] Last Admin: 02/14/18 22:43 Dose: 10 mg Ondansetron HCl (Zofran Inj) 4 mg IVP Q4 PRN PRN Reason: Nausea/Vomiting Oxycodone HCl (Oxycodone Immediate Release Tab) 5 mg PO Q6 PRN PRN Reason: Pain, moderate (4-7) Pantoprazole Sodium (Protonix Ec Tab) 40 mg PO DAILY [facility] Last Admin: 02/14/18 09:04 Dose: 40 mg Sucralfate (Carafate Tab) 1 gm PO Q6 [facility] Last Admin: 02/15/18 05:00 Dose: 1 gm Tramadol HCl (Ultram) 50 mg PO Q12 PRN PRN Reason: Pain, severe (8-10) Last Admin: 02/14/18 09:01 Dose: 50 mg Venlafaxine HCl (Effexor Xr) 150 mg PO DAILY [facility] Last Admin: 02/14/18 09:02 Dose: 150 mg - Labs Labs: 02/12/18 06:45 02/12/18 06:45 Assessment and Plan (1) Physical deconditioning Status: Acute (2) Acute cholecystitis Status: Acute (3) CAP (community acquired pneumonia) Status: Acute (4) Hypertension Status: Acute (5) History of cholecystectomy Status: Chronic
--- NOTE | 2018-02-15 07:30 | CP.PCM.PN ---
Subjective - Date & Time of Evaluation Date of Evaluation: 02/13/18 Time of Evaluation: 11:00 - Subjective Subjective: Patient remains stable Able to tolerate meals Has normal bm has minimal abd pain. Objective - Vital Signs/Intake and Output Vital Signs (last 24 hours): Temp Pulse Resp BP Pulse Ox 97.7 F 65 20 127/57 L 93 L 02/14/18 19:47 02/14/18 19:47 02/14/18 19:47 02/14/18 19:47 02/14/18 19:47 - Medications Medications: Current Medications Acetaminophen (Tylenol 325mg Tab) 650 mg PO Q4 PRN PRN Reason: Pain, Mild (1-3) Albuterol/Ipratropium (Duoneb 3 Mg/0.5 Mg (3 Ml) Ud) 3 ml INH RQ4 PRN PRN Reason: Shortness of Breath Allopurinol (Zyloprim) 100 mg PO DAILY [facility] Last Admin: 02/14/18 09:03 Dose: 100 mg Amlodipine Besylate (Norvasc) 5 mg PO DAILY [facility] Last Admin: 02/14/18 09:03 Dose: 5 mg Atorvastatin Calcium (Lipitor) 10 mg PO DAILY [facility] Last Admin: 02/14/18 09:02 Dose: 10 mg Docusate Sodium (Colace) 100 mg PO BID PRN PRN Reason: Constipation Last Admin: 02/14/18 16:10 Dose: 100 mg Ergocalciferol (Drisdol 50,000 Intl Units Cap) 1 cap PO FRI [facility] Last Admin: 02/11/18 09:18 Dose: 1 cap HCTZ/Losartan Potassium (Hyzaar 12.5 Mg-50 Mg) 1 tab PO DAILY [facility] Last Admin: 02/14/18 09:02 Dose: 1 tab Lactobacillus Acidophilus (Bacid Acidophilus) 1 cap PO BID [facility] Last Admin: 02/14/18 16:08 Dose: 1 cap Lactulose (Enulose) 20 gm PO DAILY PRN PRN Reason: Constipation Levofloxacin (Levaquin) 500 mg PO DAILY [facility] PRN Reason: Protocol Last Admin: 02/14/18 09:03 Dose: 500 mg Memantine (Namenda) 5 mg PO DAILY [facility] Last Admin: 02/14/18 09:03 Dose: 5 mg Montelukast Sodium (Singulair) 10 mg PO HS [facility] Last Admin: 02/14/18 22:43 Dose: 10 mg Ondansetron HCl (Zofran Inj) 4 mg IVP Q4 PRN PRN Reason: Nausea/Vomiting Oxycodone HCl (Oxycodone Immediate Release Tab) 5 mg PO Q6 PRN PRN Reason: Pain, moderate (4-7) Pantoprazole Sodium (Protonix Ec Tab) 40 mg PO DAILY [facility] Last Admin: 02/14/18 09:04 Dose: 40 mg Sucralfate (Carafate Tab) 1 gm PO Q6 [facility] Last Admin: 02/15/18 05:00 Dose: 1 gm Tramadol HCl (Ultram) 50 mg PO Q12 PRN PRN Reason: Pain, severe (8-10) Last Admin: 02/14/18 09:01 Dose: 50 mg Venlafaxine HCl (Effexor Xr) 150 mg PO DAILY [facility] Last Admin: 02/14/18 09:02 Dose: 150 mg - Labs Labs: 02/12/18 06:45 02/12/18 06:45 Assessment and Plan (1) Physical deconditioning Status: Acute (2) Acute cholecystitis Status: Acute (3) CAP (community acquired pneumonia) Status: Acute (4) Hypertension Status: Acute (5) History of cholecystectomy Status: Chronic
--- NOTE | 2018-02-15 07:30 | CP.PCM.PN ---
Subjective - Date & Time of Evaluation Date of Evaluation: 02/14/18 Time of Evaluation: 11:00 - Subjective Subjective: Patient remains stable Able to do therapy Objective - Vital Signs/Intake and Output Vital Signs (last 24 hours): Temp Pulse Resp BP Pulse Ox 97.7 F 65 20 127/57 L 93 L 02/14/18 19:47 02/14/18 19:47 02/14/18 19:47 02/14/18 19:47 02/14/18 19:47 - Medications Medications: Current Medications Acetaminophen (Tylenol 325mg Tab) 650 mg PO Q4 PRN PRN Reason: Pain, Mild (1-3) Albuterol/Ipratropium (Duoneb 3 Mg/0.5 Mg (3 Ml) Ud) 3 ml INH RQ4 PRN PRN Reason: Shortness of Breath Allopurinol (Zyloprim) 100 mg PO DAILY [facility] Last Admin: 02/14/18 09:03 Dose: 100 mg Amlodipine Besylate (Norvasc) 5 mg PO DAILY [facility] Last Admin: 02/14/18 09:03 Dose: 5 mg Atorvastatin Calcium (Lipitor) 10 mg PO DAILY [facility] Last Admin: 02/14/18 09:02 Dose: 10 mg Docusate Sodium (Colace) 100 mg PO BID PRN PRN Reason: Constipation Last Admin: 02/14/18 16:10 Dose: 100 mg Ergocalciferol (Drisdol 50,000 Intl Units Cap) 1 cap PO FRI [facility] Last Admin: 02/11/18 09:18 Dose: 1 cap HCTZ/Losartan Potassium (Hyzaar 12.5 Mg-50 Mg) 1 tab PO DAILY [facility] Last Admin: 02/14/18 09:02 Dose: 1 tab Lactobacillus Acidophilus (Bacid Acidophilus) 1 cap PO BID [facility] Last Admin: 02/14/18 16:08 Dose: 1 cap Lactulose (Enulose) 20 gm PO DAILY PRN PRN Reason: Constipation Levofloxacin (Levaquin) 500 mg PO DAILY [facility] PRN Reason: Protocol Last Admin: 02/14/18 09:03 Dose: 500 mg Memantine (Namenda) 5 mg PO DAILY [facility] Last Admin: 02/14/18 09:03 Dose: 5 mg Montelukast Sodium (Singulair) 10 mg PO HS [facility] Last Admin: 02/14/18 22:43 Dose: 10 mg Ondansetron HCl (Zofran Inj) 4 mg IVP Q4 PRN PRN Reason: Nausea/Vomiting Oxycodone HCl (Oxycodone Immediate Release Tab) 5 mg PO Q6 PRN PRN Reason: Pain, moderate (4-7) Pantoprazole Sodium (Protonix Ec Tab) 40 mg PO DAILY [facility] Last Admin: 02/14/18 09:04 Dose: 40 mg Sucralfate (Carafate Tab) 1 gm PO Q6 [facility] Last Admin: 02/15/18 05:00 Dose: 1 gm Tramadol HCl (Ultram) 50 mg PO Q12 PRN PRN Reason: Pain, severe (8-10) Last Admin: 02/14/18 09:01 Dose: 50 mg Venlafaxine HCl (Effexor Xr) 150 mg PO DAILY [facility] Last Admin: 02/14/18 09:02 Dose: 150 mg - Labs Labs: 02/12/18 06:45 02/12/18 06:45 Assessment and Plan (1) Physical deconditioning Status: Acute (2) Acute cholecystitis Status: Acute (3) CAP (community acquired pneumonia) Status: Acute (4) Hypertension Status: Acute (5) History of cholecystectomy Status: Chronic
[2018-02-15 07:42] VITALS: BP 131/56; PULSE 62; TEMP 98.1
[2018-02-15] MEDS: levoFLOXacin 500 MG TAB PO SCH (08:36)
[2018-02-15] MEDS: Lactobacillus Acidophilus 500 MU Cap PO SCH (08:36)
[2018-02-15] MEDS: HCTZ/Losartan 12.5/50 Tab PO SCH (08:37)
[2018-02-15] MEDS: Pantoprazole 40 mg EC Tab PO SCH (08:37)
[2018-02-15] MEDS: Venlafaxine 150 mg ER Cap PO SCH (08:37)
== END 2018-02-15 14:15 | disposition home or self-care (01) | DRG 466 ==
LOC: H.TCU 18:50
PROVIDERS: ADMIT Family Medicine; ATTEND Family Medicine
PROC: F08Z1FZ Dressing Techniques Treatment using Assistive, Adaptive, Supportive or Protective Equipment (ICD-10-PCS; principal; 2018-02-09)
PROC: F07Z5FZ Bed Mobility Treatment using Assistive, Adaptive, Supportive or Protective Equipment (ICD-10-PCS; 2018-02-09)
PROC: F07Z8FZ Transfer Training Treatment using Assistive, Adaptive, Supportive or Protective Equipment (ICD-10-PCS; 2018-02-09)
PROC: F07Z9FZ Gait Training/Functional Ambulation Treatment using Assistive, Adaptive, Supportive or Protective Equipment (ICD-10-PCS; 2018-02-09)
PROC: F07L6ZZ Therapeutic Exercise Treatment of Musculoskeletal System - Lower Back / Lower Extremity (ICD-10-PCS; 2018-02-09)
DX: Z48.815 Encounter for surgical aftercare following surgery on the digestive system (principal); J18.9 Pneumonia, unspecified organism; K59.00 Constipation, unspecified; G20 Parkinson's disease; E11.9 Type 2 diabetes mellitus without complications; E78.5 Hyperlipidemia, unspecified; F32.9 Major depressive disorder, single episode, unspecified; I10 Essential (primary) hypertension; E78.00 Pure hypercholesterolemia, unspecified